=== PATIENT | female | born 1975 | race Caucasian/White ===

== ENCOUNTER 2020-11-16 10:55 | Emergency (ER) | payer OTHER, SELFPAY ==
--- NOTE | 2020-11-16 | ECG_ITS ---
Test Reason : CHEST PAIN Blood Pressure : / mmHG Vent. Rate : 069 BPM Atrial Rate : 069 BPM P-R Int : 150 ms QRS Dur : 084 ms QT Int : 434 ms P-R-T Axes : 023 010 027 degrees QTc Int : 465 ms Normal sinus rhythm Normal ECG When compared with ECG of 02-AUG-2018 16:29, No significant change was found Referred By: Jina Talamantes Electronically Signed By:JOY SHELBY MD
[2020-11-16 11:05] VITALS: BP 135/105; PULSE 78; RESP 16; TEMP 37.5; O2SAT 100; BMI 34.5
--- NOTE | 2020-11-16 11:53 | XR_ITS ---
EXAMINATION: CR CHEST CLINICAL INFORMATION: Chest pain. COMPARISON: Chest x-ray dated 03/11/2019 and older exams. TECHNIQUE: AP portable upright view of the chest was obtained. FINDINGS: EKG leads overlie the chest. The cardiomediastinal silhouette is within normal limits in size. Lungs bilaterally are symmetrically expanded and clear. No focal consolidation, effusion or pneumothorax is seen. Bony structures are unremarkable. XR/XR chest 1V IMPRESSION: Unremarkable examination.
[2020-11-16 12:00] VITALS: BP 139/88; PULSE 78; RESP 15; TEMP 37.4; O2SAT 98
--- NOTE | 2020-11-16 12:08 | ED.CHESTPAIN ---
HPI - Chest Pain General Chief Complaint: Chest Pain Stated Complaint: covid symptoms Time Seen by Provider: 11/16/20 11:53 History of Present Illness HPI narrative: Patient is a 45-year-old female presents today with having chest pain that is constant for the last 3 days. It is worse with lying down. Improved with sitting up. It is not associated with shortness of breath. There is some coughing some upper respiratory symptoms. No diaphoresis. Patient is from home. No history diabetes no history of hypertension no history of high cholesterol. Positive previous history of smoking patient claims she smoked for about 5 months. Never had a heart attack. Patient had a stress test done about 2 years ago was negative. The pain has not gotten any worse but is fairly constant. Patient decided to come to the emergency department for further evaluation. Patient had a hysterectomy is not . Denies any leg swelling no history of blood clots. Not on blood thinners. Related Data Allergies Allergy/AdvReac Type Severity Reaction Status Date / Time acetaminophen [Percocet] Allergy Unknown heart races Verified 05/03/20 00:00 oxycodone [OXYCODONE] AdvReac Unknown PALPITATION Unverified 08/09/20 14:48 S Review of Systems Review of Systems: Constitutional: No Weight loss, No Fever, No Chills, No Night Sweats, No Fatigue, No Malaise ENT/Mouth: No Hearing loss, No Ear Pain, No Nasal Congestion, No Sinus Pain, No Hoarseness, No sore throat, No Rhinorrhea, No Swallowing Difficulty Eyes: No Eye Pain, No Swelling, No Redness, No Foreign Body, No Discharge, No Vision Changes Cardiovascular: Positive Chest Pain, No SOB, No Dyspnea on Exertion, No Orthopnea, No Edema, No Palpitations Respiratory: No Cough, No Sputum, No Wheezing, No Smoke Exposure, No Dyspnea Gastrointestinal: No Nausea, No Vomiting, No Diarrhea, No Constipation, No abdominal Pain, No Hematochezia, No Melena Genitourinary: no irregular bleeding, No Dysuria, No Urinary Frequency, No Hematuria, No Urinary Incontinence, No Urgency, No Flank Pain, No Urinary Flow Changes, No Hesitancy Musculoskeletal: No joint pain, No Myalgias, No Joint Swelling Skin: No Skin Lesions, No rash Neuro: No Weakness, No Numbness, No Paresthesias, No Loss of Consciousness, No Dizziness, No Headache Psych: No Anxiety/Panic, No Depression, No SI/HI/AH/VH, No Social Issues, Heme/Lymph: No Bruising, No Bleeding,No Lymphadenopathy Endocrine: No Polyuria, No Polydipsia, No Temperature Intolerance [facility] Past Medical History Attestation statement: The following information was validated with the patient. Medical History Asthma Fibromyalgia Irritable bowel Pituitary tumor Pseudotumor Social History Social History Smoking Status: Never smoker Use of substances other than those prescribed or required for medical reasons: No Advance Directives: No Advance Directives Information Provided: Yes Physical Exam Vital Signs: Vital Signs: Last Vital Signs Temp 99.3 F 11/16/20 12:00 Pulse 78 11/16/20 12:00 Resp 15 11/16/20 12:00 BP 139/88 11/16/20 12:00 Pulse Ox 98 11/16/20 12:00 Body Mass Index 34.5 Appearance: Alert. Oriented X3. No acute distress. Eyes: Pupils equal, round and reactive to light. ENT: Pharynx normal. Neck: Normal inspection. Neck supple. No lymph nodes noted. No crepitus CVS: Normal heart rate and rhythm. Pulses normal. Normal S1 and S2 Respiratory: No respiratory distress. Breath sounds normal. No Wheezing. No rales Abdomen: Soft and nontender. No rigidity. No distention. good BS x4 Skin: Skin warm and dry. Normal skin color. Normal skin turgor. Extremities: No lower extremity edema. Neurovascular intact to all extremities. No Lacerations. No Rash Neuro: Oriented X 3. No motor deficit. No sensory deficit. Moving all extermities. No slurred speech MDM - Chest Pain MDM Narrative Medical decision making narrative: Chest pain atypical in nature. Will discharge patient home. Close follow-up on an outpatient basis. Patient has 1 set of cardiac enzyme was negative. Minimal risk factor. 45 years old. Heart score is less than 3. Will discharge patient. Chest pain has been constant for last 3 days. Close follow-up outpatient basis Lab Data Result diagrams: 11/16/20 12:12 11/16/20 12:12 Labs: Lab Results 11/16/20 11/16/2011/16/20 Range/Units 12:12 12:12 12:12 WBC 5.2 (4.8-10.8) X10*3/uL RBC 4.36 (4.20-5.50) X10*6/uL Hgb 13.0 (12.0-16.0) g/dl Hct 39.5 (37-47) % MCV 90.6 (80-98) fL MCH 29.8 (27.0-33.0) pg MCHC 32.9 (31.0-35.0) g/dl RDW 12.4 (11.0-16.0) % Plt Count 254 (160-400) X10*3/uL MPV 9.4 (9.4-12.3) fL Immature Gran % (Auto) 0.4 (0.0-0.4) % Neut % (Auto) 68.2 (45-73) % Lymph % (Auto) 25.4 (20-40) % Holmes % (Auto) 5.4 (2-11) % Eos % (Auto) 0.4 (0-4) % Baso % (Auto) 0.2 (0-2) % Lymph # (Auto) 1.3 (1.2-4.9) X10*3/uL Holmes # (Auto) 0.3 (0.1-1.2) X10*3/uL Eos # (Auto) 0.0 (0.0-0.4) X10*3/uL Baso # (Auto) 0.0 (0.0-0.2) X10*3/uL Abs Immat Gran (auto) 0.02 (0.00-0.03) X10*3/uL Absolute Neuts (auto) 3.5 (2.0-8.3) X10*3/uL Absolute Nucleated RBC 0.000 (0.0-0.012) X10*3/uL Nucleated RBC % (auto) 0.0 (0.0-0.2) /100WBC PT 12.2 (10.8-13.0) SEC INR 1.0 (0.9-1.1) Sodium 138 (135-145) mmol/L Potassium 3.8 (3.3-5.1) mmol/l Chloride 104 (96-108) mmol/L Carbon Dioxide 26 (22-29) mmol/L Anion Gap 12 (12-20) BUN 8 L (9-16) mg/dL Creatinine 0.66 (0.5-1.4) mg/dL Estim Creat Clear Calc 102.0 Estimated GFR > 60 Random Glucose 97 (60-115) mg/dL Calcium 8.3 L (8.4-10.2) mg/dL Troponin I High Sens (<3.5-17.0) ng/L Coronavirus (PCR) (Negative) Influenza Type A (PCR) (Negative) Influenza Type B (PCR) (Negative) RSV RNA Qual (PCR) (Negative) 11/16/20 11/16/20 Range/Units 12:12 12:12 WBC (4.8-10.8) X10*3/uL RBC (4.20-5.50) X10*6/uL Hgb (12.0-16.0) g/dl Hct (37-47) % MCV (80-98) fL MCH (27.0-33.0) pg MCHC (31.0-35.0) g/dl RDW (11.0-16.0) % Plt Count (160-400) X10*3/uL MPV (9.4-12.3) fL Immature Gran % (Auto) (0.0-0.4) % Neut % (Auto) (45-73) % Lymph % (Auto) (20-40) % Holmes % (Auto) (2-11) % Eos % (Auto) (0-4) % Baso % (Auto) (0-2) % Lymph # (Auto) (1.2-4.9) X10*3/uL Holmes # (Auto) (0.1-1.2) X10*3/uL Eos # (Auto) (0.0-0.4) X10*3/uL Baso # (Auto) (0.0-0.2) X10*3/uL Abs Immat Gran (auto) (0.00-0.03) X10*3/uL Absolute Neuts (auto) (2.0-8.3) X10*3/uL Absolute Nucleated RBC (0.0-0.012) X10*3/uL Nucleated RBC % (auto) (0.0-0.2) /100WBC PT (10.8-13.0) SEC INR (0.9-1.1) Sodium (135-145) mmol/L Potassium (3.3-5.1) mmol/l Chloride (96-108) mmol/L Carbon Dioxide (22-29) mmol/L Anion Gap (12-20) BUN (9-16) mg/dL Creatinine (0.5-1.4) mg/dL Estim Creat Clear Calc Estimated GFR Random Glucose (60-115) mg/dL Calcium (8.4-10.2) mg/dL Troponin I High Sens < 3.5 (<3.5-17.0) ng/L Coronavirus (PCR) POSITIVE A (Negative) Influenza Type A (PCR) NEGATIVE (Negative) Influenza Type B (PCR) NEGATIVE (Negative) RSV RNA Qual (PCR) NEGATIVE (Negative) ECG Data ECG #1: Interpretation: Sinus heart rate is 70 WA QRS QT within normal limits is no acute ST segment elevation noted Discharge Plan Discharge Clinical Impression: Chest pain Patient Disposition: Home, Self-Care Instructions: Chest Pain (ED) Referrals: Kenny Taylor PA-C [Primary Care Provider] - 2 days
[2020-11-16 12:18] LABS: Basophils Percent Auto 0.2 % (0-2); Eosinophils Percent Auto 0.4 % (0-4); Hematocrit 39.5 % (37-47); Imm Gran Abs Auto 0.02 X10*3/uL (0.00-0.03); Imm Gran Pct Auto 0.4 % (0.0-0.4); Lymphocytes Absolute Auto 1.3 X10*3/uL (1.2-4.9); Lymphocytes Percent Auto 25.4 % (20-40); MANUAL DIFF FLAG NO; Mean Corpuscular HGB Conc 32.9 g/dl (31.0-35.0); Mean Corpuscular Hemoglobin 29.8 pg (27.0-33.0); Mean Corpuscular Volume 90.6 fL (80-98); Mean Platelet Volume 9.4 fL (9.4-12.3); Monocytes Absolute Auto 0.3 X10*3/uL (0.1-1.2); Monocytes Percent Auto 5.4 % (2-11); Neutrophils Absolute Auto 3.5 X10*3/uL (2.0-8.3); Neutrophils Percent Auto 68.2 % (45-73); Platelet Count 254 X10*3/uL (160-400); Red Blood Count 4.36 X10*6/uL (4.20-5.50); Red Cell Distribution Width 12.4 % (11.0-16.0); White Blood Count 5.2 X10*3/uL (4.8-10.8)
[2020-11-16 12:28] LABS: Prothrombin Time 12.2 SEC (10.8-13.0)
[2020-11-16 12:46] LABS: Anion Gap 12 (12-20); Blood Urea Nitrogen 8 mg/dL (9-16); Calcium 8.3 mg/dL (8.4-10.2); Carbon Dioxide 26 mmol/L (22-29); Chloride 104 mmol/L (96-108); Estimated Glomerular Filt Rate > 60; Glucose Random 97 mg/dL (60-115); Potassium 3.8 mmol/l (3.3-5.1); Sodium 138 mmol/L (135-145)
[2020-11-16 12:51] LABS: Troponin-I High Sensitivity < 3.5 ng/L (<3.5-17.0)
[2020-11-16 13:11] LABS: Influenza A PCR NEGATIVE (Negative); Influenza B PCR NEGATIVE (Negative); Resp Syncy Virus RNA Qual PCR NEGATIVE (Negative); SARS COV2 PCR INHOUSE POSITIVE (Negative)
== END 2020-11-16 14:30 | disposition home or self-care (01) ==
PROVIDERS: Emergency Provider Emergency Medicine Emergency Medical Services; PCP Physician Assistant
DX: R07.9 Chest pain, unspecified (principal); R06.02 Shortness of breath; Z87.891 Personal history of nicotine dependence; Z20.828 Contact with and (suspected) exposure to other viral communicable diseases
CPT/HCPCS: 0241U; 36415; 71045; 80048; 84484; 85025; 85610; 93005; 99283; 99284

== ENCOUNTER 2021-03-26 18:33 | Emergency (ER) | payer OTHER, SELFPAY ==
--- NOTE | 2021-03-26 | ECG_ITS ---
Test Reason : CHEST PAIN Blood Pressure : / mmHG Vent. Rate : 074 BPM Atrial Rate : 074 BPM P-R Int : 146 ms QRS Dur : 084 ms QT Int : 400 ms P-R-T Axes : 017 006 037 degrees QTc Int : 444 ms Normal sinus rhythm Minimal voltage criteria for LVH, may be normal variant Borderline ECG When compared with ECG of 16-NOV-2020 11:02, No significant change was found Referred By: Generic ED Physician Electronically Signed By:IMELDA LEARY
--- NOTE | ~2021-03-26 | XR_ITS ---
EXAMINATION: XR CHEST CLINICAL INFORMATION: Chest pain COMPARISON: 11/16/2020 TECHNIQUE: Frontal view of the chest was obtained. FINDINGS: No significant abnormality is noted involving the heart, lungs, mediastinum, bony thorax or soft tissues. XR/XR chest 1V IMPRESSION: Unremarkable examination.
[2021-03-26 18:39] VITALS: BP 170/96; PULSE 87; RESP 20; TEMP 36.5; O2SAT 100; BMI 35.2
[2021-03-26 20:57] LABS: MANUAL DIFF FLAG NO
[2021-03-26 21:00] LABS: Basophils Percent Auto 0.2 % (0-2); Eosinophils Absolute Auto 0.1 X10*3/uL (0.0-0.4); Eosinophils Percent Auto 0.5 % (0-4); Hemoglobin 13.6 g/dl (12.0-16.0); Imm Gran Abs Auto 0.03 X10*3/uL (0.00-0.03); Imm Gran Pct Auto 0.3 % (0.0-0.4); Lymphocytes Absolute Auto 1.7 X10*3/uL (1.2-4.9); Mean Corpuscular HGB Conc 33.2 g/dl (31.0-35.0); Mean Corpuscular Hemoglobin 30.1 pg (27.0-33.0); Mean Corpuscular Volume 90.7 fL (80-98); Mean Platelet Volume 9.4 fL (9.4-12.3); Monocytes Absolute Auto 0.4 X10*3/uL (0.1-1.2); Monocytes Percent Auto 3.4 % (2-11); Neutrophils Absolute Auto 8.6 X10*3/uL (2.0-8.3); Neutrophils Percent Auto 79.6 % (45-73); Platelet Count 326 X10*3/uL (160-400); Red Blood Count 4.52 X10*6/uL (4.20-5.50); Red Cell Distribution Width 12.8 % (11.0-16.0); White Blood Count 10.8 X10*3/uL (4.8-10.8)
[2021-03-26 21:28] LABS: Anion Gap 14 (12-20); Blood Urea Nitrogen 12 mg/dL (9-16); Calcium 9.8 mg/dL (8.4-10.2); Carbon Dioxide 25 mmol/L (22-29); Chloride 106 mmol/L (96-108); Creatinine Clr Calc Pharmacy 88.2; Estimated Glomerular Filt Rate > 60; Glucose Random 98 mg/dL (60-115); Potassium 4.3 mmol/L (3.3-5.1); Sodium 141 mmol/L (135-145)
[2021-03-26 21:34] LABS: B Type Natriuretic Peptide 10 pg/mL (<100); Troponin-I High Sensitivity < 3.5 ng/L (<3.5-17.0)
== END 2021-03-26 21:54 | disposition left against medical advice (07) ==
LOC: HO.ED 21:53
PROVIDERS: Emergency Provider Emergency Medicine; PCP Physician Assistant
DX: R07.9 Chest pain, unspecified (principal); Z86.16 Personal history of COVID-19
CPT/HCPCS: 36415; 71045; 80048; 83880; 84484; 85025; 93005; 99283

== ENCOUNTER 2021-06-06 21:10 | Emergency (ER) | payer OTHER, SELFPAY ==
[2021-06-06 21:36] VITALS: BP 130/72; PULSE 77; RESP 18; TEMP 36.6; O2SAT 98; BMI 35.2
[2021-06-06] MEDS: clonazePAM 1 MG TABLET PO (22:05)
--- NOTE | 2021-06-06 22:51 | ED_ITS ---
HPI - Anxiety General Chief Complaint: Anxiety Stated Complaint: panic attak Time Seen by Provider: 06/06/21 21:43 Source: patient Mode of arrival: ambulatory Limitations: no limitations History of Present Illness HPI narrative: Patient with extensive conflict with neighbors Jayna keep jossy Mcpherson her just prior to arrival patient had a increased anxiety with panic attack tearful denies any suicidal feeling or depression Related Data Previous Rx's Medication Instructions Recorded albuterol sulfate 90 mcg/actuation 1 inh INHALATION QID 30 Days #8.5 g 04/25/21 aerosol inhaler buspirone 10 mg tablet 10 mg PO BID 30 Days #60 tab 04/25/21 ibuprofen 800 mg tablet 800 mg PO Q12H #60 tab 04/25/21 clonazepam [Klonopin] 1 mg PO BEDTIME PRN #10 tab 06/06/21 Allergies Allergy/AdvReac Type Severity Reaction Status Date / Time acetaminophen [Percocet] Allergy Unknown heart races Verified 06/06/21 21:41 oxycodone [OXYCODONE] AdvReac Unknown PALPITATION Verified 06/06/21 21:41 S Review of Systems Review of Systems: Yes all other systems are reviewed and are negative [facility] Past Medical History Medical History Asthma Fibromyalgia Irritable bowel Pituitary tumor Pseudotumor Surgical History History of biopsy History of delivery History of cholecystectomy History of hysterectomy Family History Family History Mother Diabetes Heart defect Thyroid disease Heart attack, Onset Age: 29 Father Diabetes Hypertension Social History Social History Alcohol intake: current Alcohol intake frequency: holidays/special occasions only Patient Tobacco Use Status: Former Tobacco user Advance Directives: No Advance Directives Information Provided: Yes Patient : No Physical Exam Vital Signs: Vital Signs: Last Vital Signs Temp 98 F 06/06/21 21:36 Pulse 77 06/06/21 21:36 Resp 18 06/06/21 21:36 BP 130/72 06/06/21 21:36 Pulse Ox 98 06/06/21 21:36 Body Mass Index 35.2 Appearance: Alert. Oriented X3. No acute distress. Anxious tearful Eyes: PERRLA, ENT: Pharynx normal. Oral Mucosa moist Neck: Normal inspection. Neck supple. CVS: Normal heart rate and rhythm. Pulses normal. Respiratory: No respiratory distress. Abdomen: Soft and nontender. Skin: Skin warm and dry. Normal skin color. Normal skin turgor. Extremities: No lower extremity edema. Neuro: Oriented X 3. MDM - Anxiety MDM Narrative Medical decision making narrative: Patient feeling much better after Klonopin feels relax will discharge patient home Discharge Plan Discharge Clinical Impression: Panic attack Patient Disposition: Home, Self-Care Instructions: Panic Attack (ED) Additional Instructions: Continue to take your medication as prescribed, Klonopin for severe attack and follow up with your therapist/PCP Prescriptions: New clonazepam [Klonopin] 1 mg tablet 1 mg PO BEDTIME PRN (Reason: anxiety) Qty: 10 RF: 0 No Action buspirone 10 mg tablet 10 mg PO BID 30 Days Qty: 60 RF: 2 ibuprofen 800 mg tablet 800 mg PO Q12H Qty: 60 RF: 2 albuterol sulfate 90 mcg/actuation HFA aerosol inhaler 1 inh inhalation QID 30 Days Qty: 8.5 RF: 3
[2021-06-06 22:58] VITALS: BP 118/84; PULSE 103; RESP 24; TEMP 37.4; O2SAT 95
== END 2021-06-06 23:03 | disposition home or self-care (01) ==
PROVIDERS: Emergency Provider Internal Medicine; PCP Physician Assistant
DX: F41.0 Panic disorder [episodic paroxysmal anxiety] (principal); J45.909 Unspecified asthma, uncomplicated; Z79.899 Other long term (current) drug therapy
CPT/HCPCS: 99283; 99284

== ENCOUNTER 2022-02-13 08:41 | Emergency (ER) | payer OTHER, SELFPAY ==
--- NOTE | ~2022-02-13 | XR_ITS ---
EXAMINATION: XR CHEST CLINICAL INFORMATION: Chest tightness COMPARISON: None TECHNIQUE: Frontal view of the chest was obtained. FINDINGS: No significant abnormality is noted involving the heart, lungs, mediastinum, bony thorax or soft tissues. XR/XR chest 1V IMPRESSION: Unremarkable chest examination.
--- NOTE | ~2022-02-13 | CT_ITS ---
EXAMINATION: CT HEAD WITHOUT CONTRAST CLINICAL INFORMATION: Dizziness. COMPARISON: None TECHNIQUE: Contiguous axial imaging was performed from the skull base to vertex without intravenous administration of contrast. This CT examination was performed using dose optimization techniques as appropriate, variously including the following: *Automated exposure control *Adjustment of mA and/or kV according to patient size (this includes techniques or standardized protocols for targeted exams where dose is matched to indication/reason for exam; i.e. extremities or head) *Use of iterative reconstruction technique DLP: 631 mGy-cm FINDINGS: There is no evidence of acute intracranial hemorrhage or territorial infarction. No abnormal mass effect or midline shift is seen. Buchanan to white matter differentiation is well preserved. No extra-axial fluid collections are identified. The ventricles are normal in size. There is no abnormal attenuation within the brain parenchyma. The osseous structures and soft tissues are normal. The mastoid air cells and visualized portions of the paranasal sinuses are well aerated. CT/CT head/brain wo con IMPRESSION: No acute intracranial process seen.
--- NOTE | 2022-02-13 08:42 | ECG_ITS ---
Test Reason : chest pain Blood Pressure : / mmHG Vent. Rate : 093 BPM Atrial Rate : 093 BPM P-R Int : 146 ms QRS Dur : 078 ms QT Int : 386 ms P-R-T Axes : 028 006 044 degrees QTc Int : 479 ms Normal sinus rhythm Normal ECG When compared with ECG of 26-MAR-2021 18:53, No significant change was found Referred By: Generic ED Physician Electronically Signed By:JOY SHELBY MD
[2022-02-13 08:43] VITALS: BP 185/90; PULSE 83; RESP 18; TEMP 36.8; O2SAT 98; BMI 33.2
--- NOTE | 2022-02-13 09:24 | ED.CHESTPAIN ---
HPI - Chest Pain General Chief Complaint: Chest Pain Stated Complaint: chest pain Time Seen by Provider: 02/13/22 09:22 Source: patient Mode of arrival: ambulatory Limitations: no limitations History of Present Illness HPI narrative: palpitations for the last month undergoing heart monitor testing for 3 days does not have the results, waking up anxious and feeling like she can't breathe at night - planned for sleep study was driving at 8am this morning felt dizzy, both of her hands went numb and the lower half of her body, she then felt dizzy and was incontinent of urine she felt her heart racing - this lasted 5 minutes and she was able to continue driving. She was on 20mg sertraline for 2 weeks but took herself off due to vomiting MD complaint: chest pain Onset (ago): hour(s) (8am today but has had palpitations for a month) Timing of current episode: episodic Prior episodes: Yes Onset: during rest Pain location: substernal Pain radiation: none Severity: moderate Quality: tightness Relieving factors: nothing Exacerbating factors: nothing Associated symptoms: dyspnea Treatment prior to arrival: none Related Data Previous Rx's Medication Instructions Recorded ibuprofen 800 mg tablet 800 mg PO Q12H #60 tab 07/20/21 albuterol sulfate 90 mcg/actuation 1 inh INHALATION QID 30 Days #8.5 g 11/17/21 aerosol inhaler blood pressure test kit-large #1 ea 01/13/22 citalopram 20 mg tablet (Celexa) 20 mg PO DAILY 30 Days #30 tab 01/13/22 melatonin 10 mg capsule 10 mg PO BEDTIME PRN 60 Days #60 01/13/22 cap lorazepam 0.5 mg tablet (Ativan) 0.5 mg PO DAILY PRN #7 tab 02/13/22 Allergies Allergy/AdvReac Type Severity Reaction Status Date / Time acetaminophen [Percocet] Allergy Unknown heart races Verified 01/13/22 13:20 oxycodone [OXYCODONE] AdvReac Unknown PALPITATION Verified 01/13/22 13:20 S Review of Systems Review of Systems: Constitutional : No Weight loss, No Fever, No Chills, No Fatigue, No Malaise ENT/Mouth : No sore throat, No Rhinorrhea Eyes: No Eye Pain, No Swelling, No Redness Cardiovascular : pos Chest Pain, pos SOB, No Dyspnea on Exertion, No Orthopnea, No Edema, pos Palpitations Respiratory : No Cough, No Sputum, No Wheezing Gastrointestinal : No Nausea, No Vomiting, No Diarrhea, No Constipation, No abdominal Pain, No Hematochezia, No Melena Genitourinary : No Dysuria, No Urinary Frequency, No Hematuria, pos urinary incontinence Musculoskeletal : No joint pain, No Myalgias, No Joint Swelling Skin : No Skin Lesions, No rash Neuro : No Weakness, pos Numbness, pos Dizziness, No Headache Psych : pos Anxiety/Panic, No Depression Heme/Lymph: No Bruising, No Bleeding,No Lymphadenopathy Endocrine : No Polyuria, No Polydipsia All other systems reviewed and are negative PMFSH Past Medical History Attestation statement: The following information was validated with the patient. Medical History Anxiety Asthma Fibromyalgia Heart palpitations HTN (hypertension) Irritable bowel Pituitary tumor Pseudotumor Surgical History History of biopsy History of delivery History of cholecystectomy History of hysterectomy Family History Family History Mother Diabetes Heart defect Thyroid disease Heart attack, Onset Age: 29 Father Diabetes Hypertension Social History Social History Housing: Apartment Alcohol intake: never Patient Tobacco Use Status: Former Tobacco user Tobacco use type: Cigarette e-Cigarette/Vaping Use: Never Used Use of substances other than those prescribed or required for medical reasons: No Advance Directives: No Advance Directives Information Provided: No service: No Current occupational status: disabled Physical Exam Vital Signs: Vital Signs: Last Vital Signs Temp 99.3 F 02/13/22 12:04 Pulse 62 02/13/22 12:04 Resp 15 02/13/22 12:04 BP 118/73 02/13/22 12:04 Pulse Ox 98 02/13/22 12:04 BMI result Body Mass Index 33.2 Appearance: Alert. Oriented X3. No acute distress. Anxious Eyes: Pupils equal, round and reactive to light. ENT: Pharynx normal. Neck: Normal inspection. Neck supple. CVS: Normal heart rate and rhythm. Pulses normal. Respiratory: No respiratory distress. Breath sounds normal. Abdomen: Soft and nontender. Skin: Skin warm and dry. Normal skin color. Normal skin turgor. Extremities: No lower extremity edema. No calf ttp Neuro: Oriented X 3. No motor deficit. No sensory deficit. Course Course Course Narrative: EKG, troponin x 2 negative, CT head normal, UA negative, lytes normal no events on tele here x 5 hours at this time can be DC home wtih PCP follow up unsure if this was a near syncopal event MDM - Chest Pain MDM Narrative Medical decision making narrative: 46 yo female with hx of heart palpitations, anxiety, HTN, not on any medications comes in with c/o having increased palpitations (completing workup now) today had episode of dizziness, her body went number on lower half, lost control of urine, this lasted 5 minutes she is neurologically intact. She did not have LOC and describes it as her whole body so it does not seem like it would be a partial seizure or generalized seizure. She is very anxious. Will obtain troponin x 2, CT scan of head, EKG, IV ativan for anxiety, no hypoxia/signs of DVT HR in 70s no OCPs doubt PE. Lab Data Result diagrams: 02/13/22 10:14 02/13/22 10:14 Labs: Lab Results 02/13/22 02/13/22 02/13/22 Range/Units 10:14 10:14 10:14 WBC 7.0 (4.8-10.8) X10*3/uL RBC 4.39 (4.20-5.50) X10*6/uL Hgb 13.2 (12.0-16.0) g/dl Hct 40.8 (37.0-47.0) % MCV 92.9 (80.0-98.0) fL MCH 30.1 (27.0-33.0) pg MCHC 32.4 (31.0-35.0) g/dl RDW 13.1 (11.0-16.0) % Plt Count 306 (160-400) X10*3/uL MPV 9.5 (9.4-12.3) fL Immature Gran % (Auto) 0.3 (0.0-0.4) % Neut % (Auto) 73.6 H (45-73) % Lymph % (Auto) 21.0 (20-40) % [place] % (Auto) 4.4 (2-11) % Eos % (Auto) 0.6 (0-4) % Baso % (Auto) 0.1 (0-2) % Lymph # (Auto) 1.5 (1.2-4.9) X10*3/uL [place] # (Auto) 0.3 (0.1-1.2) X10*3/uL Eos # (Auto) 0.0 (0.0-0.4) X10*3/uL Baso # (Auto) 0.0 (0.0-0.2) X10*3/uL Abs Immat Gran (auto) 0.02 (0.00-0.03) X10*3/uL Absolute Neuts (auto) 5.2 (2.0-8.3) x10*3/uL Absolute Nucleated RBC 0.000 (0.0-0.012) X10*3/uL Nucleated RBC % (auto) 0.0 (0.0-0.2) /100WBC Sodium 141 (135-145) mmol/L Potassium 4.4 (3.3-5.1) mmol/L Chloride 106 (96-108) mmol/L Carbon Dioxide 25 (22-29) mmol/L Anion Gap 14 (12-20) BUN 10 (9-16) mg/dL Creatinine 0.73 (0.5-1.4) mg/dL Estim Creat Clear Calc 89.3 Estimated GFR > 60 Random Glucose 96 (60-115) mg/dL Calcium 8.9 D (8.4-10.2) mg/dL Magnesium 2.1 (1.6-2.6) mg/dL Total Bilirubin 0.7 (0.0-1.0) mg/dL Direct Bilirubin 0.2 (0.0-0.5) mg/dL AST 16 (5-31) U/L ALT 21 (0-31) U/L Alkaline Phosphatase 60 (39-117) U/L Troponin I High Sens < 3.5 (<3.5-17.0) ng/L Total Protein 7.0 (6.5-8.0) g/dL Albumin 3.9 (3.5-5.0) g/dL Lipase 23 (8-78) U/L Urine Color Urine Appearance Urine pH (5.0-8.0) Ur Specific [place] (1.005-1.025) Urine Protein (NEG-TRACE) MG/DL Urine Glucose (UA) (NEG) MG/DL Urine Ketones (NEG) MG/DL Urine Blood (NEG) Urine Nitrite (NEG) Ur Leukocyte Esterase (NEG) Urine RBC (0) /HPF Urine WBC (0-4) /HPF Ur Squamous Epith Cells /LPF Amorphous Sediment /LPF Urine Bacteria /LPF Urine Mucus /LPF COVID-19 ([facility]) (Negative) COVID-19 Clin Com 02/13/22 02/13/22 02/13/22 Range/Units 10:14 10:30 13:22 WBC (4.8-10.8) X10*3/uL RBC (4.20-5.50) X10*6/uL Hgb (12.0-16.0) g/dl Hct (37.0-47.0) % MCV (80.0-98.0) fL MCH (27.0-33.0) pg MCHC (31.0-35.0) g/dl RDW (11.0-16.0) % Plt Count (160-400) X10*3/uL MPV (9.4-12.3) fL Immature Gran % (Auto) (0.0-0.4) % Neut % (Auto) (45-73) % Lymph % (Auto) (20-40) % [place] % (Auto) (2-11) % Eos % (Auto) (0-4) % Baso % (Auto) (0-2) % Lymph # (Auto) (1.2-4.9) X10*3/uL [place] # (Auto) (0.1-1.2) X10*3/uL Eos # (Auto) (0.0-0.4) X10*3/uL Baso # (Auto) (0.0-0.2) X10*3/uL Abs Immat Gran (auto) (0.00-0.03) X10*3/uL Absolute Neuts (auto) (2.0-8.3) x10*3/uL Absolute Nucleated RBC (0.0-0.012) X10*3/uL Nucleated RBC % (auto) (0.0-0.2) /100WBC Sodium (135-145) mmol/L Potassium (3.3-5.1) mmol/L Chloride (96-108) mmol/L Carbon Dioxide (22-29) mmol/L Anion Gap (12-20) BUN (9-16) mg/dL Creatinine (0.5-1.4) mg/dL Estim Creat Clear Calc Estimated GFR Random Glucose (60-115) mg/dL Calcium (8.4-10.2) mg/dL Magnesium (1.6-2.6) mg/dL Total Bilirubin (0.0-1.0) mg/dL Direct Bilirubin (0.0-0.5) mg/dL AST (5-31) U/L ALT (0-31) U/L Alkaline Phosphatase (39-117) U/L Troponin I High Sens < 3.5 (<3.5-17.0) ng/L Total Protein (6.5-8.0) g/dL Albumin (3.5-5.0) g/dL Lipase (8-78) U/L Urine Color YELLOW Urine Appearance HAZY Urine pH 5.5 (5.0-8.0) Ur Specific [place] >= 1.030 H (1.005-1.025) Urine Protein NEG (NEG-TRACE) MG/DL Urine Glucose (UA) NEG (NEG) MG/DL Urine Ketones NEG (NEG) MG/DL Urine Blood 1+ H (NEG) Urine Nitrite NEG (NEG) Ur Leukocyte Esterase NEG (NEG) Urine RBC 0-2 (0) /HPF Urine WBC 0-2 (0-4) /HPF Ur Squamous Epith Cells 1+ /LPF Amorphous Sediment 1+ /LPF Urine Bacteria NONE /LPF Urine Mucus 2+ /LPF COVID-19 ([facility]) Negative (Negative) COVID-19 Clin Com See Note ECG Data ECG #1: Attestation: I personally reviewed and interpreted this ECG as follows: ECG interpretation date: 02/13/22 ECG interpretation time: 09:25 Interpretation: Rate: 93 Rhythm: NSr [place]: left Normal P waves. Normal OMARI. Normal QRS complex. ST T wave : normal no MAMI qTC: normal prior studies: no acute ischemia The study has been interpreted contemporaneously by me. Discharge Plan Discharge Clinical Impression: Heart palpitations, Near syncope Patient Disposition: Home, Self-Care Instructions: Heart Palpitations (ED), Near Syncope (ED) Additional Instructions: return to ED for any worsening symptoms or concerns blood work including heart markers are normal, Chest xray, head CT all normal, telemetry in ED was normal. given the event today I would not drive your car until seen by your primary care doctor. This seems unusual for a partial seizure. Could have been a near syncopal (passing out) episode Prescriptions: New lorazepam [Ativan] 0.5 mg tablet 0.5 mg PO DAILY PRN (Reason: anxiety) Qty: 7 0RF No Action ibuprofen 800 mg tablet 800 mg PO Q12H Qty: 60 2RF albuterol sulfate 90 mcg/actuation HFA aerosol inhaler 1 inh inhalation QID 30 Days Qty: 8.5 3RF citalopram [Celexa] 20 mg tablet 20 mg PO DAILY 30 Days Qty: 30 3RF (DME) blood pressure test kit-large Kit See Rx Instructions .Route Qty: 1 0RF Rx Instructions: As directed melatonin 10 mg capsule 10 mg PO BEDTIME PRN (Reason: sleep) 60 Days Qty: 60 1RF Referrals: Kenny Taylor PA-C [Primary Care Provider] - 2 days Stand Alone Forms: Work/School Release
[2022-02-13 09:58] VITALS: BP 121/81; PULSE 70; RESP 18; O2SAT 95
[2022-02-13 10:23] LABS: MANUAL DIFF FLAG NO
[2022-02-13 10:26] LABS: Basophils Percent Auto 0.1 % (0-2); Eosinophils Percent Auto 0.6 % (0-4); Hematocrit 40.8 % (37.0-47.0); Hemoglobin 13.2 g/dl (12.0-16.0); Imm Gran Abs Auto 0.02 X10*3/uL (0.00-0.03); Imm Gran Pct Auto 0.3 % (0.0-0.4); Lymphocytes Absolute Auto 1.5 X10*3/uL (1.2-4.9); Mean Corpuscular HGB Conc 32.4 g/dl (31.0-35.0); Mean Corpuscular Hemoglobin 30.1 pg (27.0-33.0); Mean Corpuscular Volume 92.9 fL (80.0-98.0); Mean Platelet Volume 9.5 fL (9.4-12.3); Monocytes Absolute Auto 0.3 X10*3/uL (0.1-1.2); Monocytes Percent Auto 4.4 % (2-11); Neutrophils Absolute Auto 5.2 x10*3/uL (2.0-8.3); Neutrophils Percent Auto 73.6 % (45-73); Platelet Count 306 X10*3/uL (160-400); Red Blood Count 4.39 X10*6/uL (4.20-5.50); Red Cell Distribution Width 13.1 % (11.0-16.0)
[2022-02-13 10:52] LABS: Alanine Aminotransferase 21 U/L (0-31); Albumin Level 3.9 g/dL (3.5-5.0); Alkaline Phosphatase 60 U/L (39-117); Anion Gap 14 (12-20); Aspartate Amino Transferase 16 U/L (5-31); Bilirubin Direct 0.2 mg/dL (0.0-0.5); Bilirubin Total 0.7 mg/dL (0.0-1.0); Blood Urea Nitrogen 10 mg/dL (9-16); Calcium 8.9 mg/dL (8.4-10.2); Carbon Dioxide 25 mmol/L (22-29); Chloride 106 mmol/L (96-108); Creatinine Clr Calc Pharmacy 89.3; Estimated Glomerular Filt Rate > 60; Glucose Random 96 mg/dL (60-115); Lipase 23 U/L (8-78); Magnesium 2.1 mg/dL (1.6-2.6); Potassium 4.4 mmol/L (3.3-5.1); Sodium 141 mmol/L (135-145)
[2022-02-13 10:54] LABS: Troponin-I High Sensitivity < 3.5 ng/L (<3.5-17.0)
[2022-02-13 10:57] LABS: Appearance Urine HAZY; Color Urine YELLOW; Glucose Urine UA NEG (NEG); Leukocyte Esterase Urine NEG (NEG); Nitrite Urine NEG (NEG); PH 5.5 (5.0-8.0); Specific Gravity - Urine >= 1.030 (1.005-1.025); UACC Culture Trigger NO; Urine Blood 1+ (NEG); Urine Ketones NEG (NEG); Urine Protein NEG (NEG-TRACE)
[2022-02-13 10:58] LABS: COVID-19 Test Negative (Negative); IDNOW Serial# 55D5AD1C
[2022-02-13 11:34] LABS: Amorphous Sediment Urine 1+ /LPF; Mucus Urine 2+ /LPF; RBC Urine 0-2 /HPF (0); Squamous Epithelial Cell Urine 1+ /LPF; WBC Urine 0-2 /HPF (0-4)
[2022-02-13 11:37] VITALS: BP 118/70; PULSE 65; RESP 18; O2SAT 96
[2022-02-13] MEDS: 0.9 % Sodium Chloride 500 ML IV (11:37)
--- NOTE | 2022-02-13 11:38 | PC.NURSE ---
pt describes a year of waking with SOB. has cardio care including holter monitor. skin p[wd. nsr on monitor. describes carple pedal spasms and panick attack in car this am. sx are resolving w/o interventions.
[2022-02-13 12:04] VITALS: BP 118/73; PULSE 62; RESP 15; TEMP 37.4; O2SAT 98
--- NOTE | 2022-02-13 12:18 | PC.NURSE ---
mild plus 1 pitting edema to ankle only bilaterally
[2022-02-13 13:48] LABS: Troponin-I High Sensitivity < 3.5 ng/L (<3.5-17.0)
--- NOTE | 2022-02-13 13:51 | PC.NURSE ---
reports feeling better.
== END 2022-02-13 14:46 | disposition home or self-care (01) ==
PROVIDERS: Emergency Provider Emergency Medicine; PCP Physician Assistant
DX: R00.2 Palpitations (principal); R55 Syncope and collapse; Z20.822 Contact with and (suspected) exposure to COVID-19; I10 Essential (primary) hypertension; F41.9 Anxiety disorder, unspecified; Z87.891 Personal history of nicotine dependence
CPT/HCPCS: 36415; 70450; 71045; 80048; 80076; 81001; 81003; 83690; 83735; 84484; 85025; 87635; 93005; 96361; 96374; 99284

== ENCOUNTER 2022-12-08 10:34 | Outpatient (REF) | payer OTHER, SELFPAY ==
[2022-12-08 10:59] LABS: Hematocrit 43.1 % (37.0-47.0); Mean Corpuscular HGB Conc 32.5 g/dl (31.0-35.0); Mean Corpuscular Hemoglobin 29.5 pg (27.0-33.0); Mean Corpuscular Volume 90.7 fL (80.0-98.0); Mean Platelet Volume 9.3 fL (9.4-12.3); Platelet Count 357 X10*3/uL (160-400); Red Blood Count 4.75 X10*6/uL (4.20-5.50); Red Cell Distribution Width 12.7 % (11.0-16.0); White Blood Count 7.4 X10*3/uL (4.8-10.8)
[2022-12-08 11:42] LABS: Erythrocyte Sedimentation Rate 17 MM/HR (0-20)
[2022-12-08 11:46] LABS: B Type Natriuretic Peptide 42 pg/mL (<100)
[2022-12-08 11:47] LABS: Alanine Aminotransferase 13 U/L (0-31); Albumin Level 4.1 g/dL (3.5-5.0); Alkaline Phosphatase 63 U/L (39-117); Anion Gap 9 (12-20); Aspartate Amino Transferase 13 U/L (5-31); Bilirubin Total 0.3 mg/dL (0.0-1.0); Blood Urea Nitrogen 12 mg/dL (9-16); C Reactive Protein 0.59 mg/dL (< or = 0.50); Calcium 9.1 mg/dL (8.4-10.2); Carbon Dioxide 26 mmol/L (22-29); Chloride 108 mmol/L (96-108); Estimated Glomerular Filt Rate > 60; Glucose Random 97 mg/dL (60-115); Potassium 4.4 mmol/L (3.3-5.1); Rheumatoid Factor < 13.0 IU/mL (<15.0); Sodium 139 mmol/L (135-145); Total Protein 7.2 g/dL (6.5-8.0)
[2022-12-09 15:24] LABS: Anti Nuclear Antibody Screen NEGATIVE (NEGATIVE)
== END 2022-12-08 10:35 | disposition home or self-care (01) ==
LOC: HO.LAB 10:34
PROVIDERS: PCP Physician Assistant; Visit Provider Nurse Practitioner Family
DX: Z13.1 Encounter for screening for diabetes mellitus (principal); Z13.0 Encounter for screening for diseases of the blood and blood-forming organs and certain disorders involving the immune mechanism; M25.50 Pain in unspecified joint; R60.9 Edema, unspecified
CPT/HCPCS: 36415; 80053; 83880; 85027; 85652; 86038; 86039; 86140; 86431

== ENCOUNTER 2023-02-03 12:57 | Emergency (ER) | payer OTHER, SELFPAY ==
--- NOTE | ~2023-02-03 | XR_ITS ---
EXAMINATION: XR CHEST CLINICAL INFORMATION: Chest pain COMPARISON: 02/13/2022 TECHNIQUE: 2 views of the chest were obtained. FINDINGS: The lungs are well expanded. There is no focal consolidation, edema, or effusion. No pneumothorax. The cardiomediastinal silhouette is within normal limits. No acute osseous abnormality. XR/XR chest 2V IMPRESSION: Clear lungs.
[2023-02-03 13:00] VITALS: BP 159/93; PULSE 113; RESP 20; TEMP 36.6; O2SAT 97; BMI 34.2
--- NOTE | 2023-02-03 13:03 | ECG_ITS ---
Test Reason : CHEST PAIN Blood Pressure : / mmHG Vent. Rate : 107 BPM Atrial Rate : 107 BPM P-R Int : 150 ms QRS Dur : 082 ms QT Int : 340 ms P-R-T Axes : 022 -09 028 degrees QTc Int : 453 ms Sinus tachycardia Possible Left atrial enlargement Minimal voltage criteria for LVH, may be normal variant ( R in aVL ) Borderline ECG When compared with ECG of 13-FEB-2022 08:41, No significant change was found Referred By: Generic ED Physician Electronically Signed By:Artemio Darling
[2023-02-03 13:18] LABS: MANUAL DIFF FLAG NO
[2023-02-03 13:20] LABS: Basophils Percent Auto 0.2 % (0-2); Eosinophils Percent Auto 0.4 % (0-4); Hematocrit 41.1 % (37.0-47.0); Hemoglobin 13.5 g/dl (12.0-16.0); Imm Gran Abs Auto 0.03 X10*3/uL (0.00-0.03); Imm Gran Pct Auto 0.3 % (0.0-0.4); Lymphocytes Absolute Auto 1.5 X10*3/uL (1.2-4.9); Lymphocytes Percent Auto 16.3 % (20-40); Mean Corpuscular HGB Conc 32.8 g/dl (31.0-35.0); Mean Corpuscular Hemoglobin 29.7 pg (27.0-33.0); Mean Corpuscular Volume 90.5 fL (80.0-98.0); Mean Platelet Volume 9.3 fL (9.4-12.3); Monocytes Absolute Auto 0.3 X10*3/uL (0.1-1.2); Monocytes Percent Auto 3.6 % (2-11); Neutrophils Absolute Auto 7.2 x10*3/uL (2.0-8.3); Neutrophils Percent Auto 79.2 % (45-73); Platelet Count 349 X10*3/uL (160-400); Red Blood Count 4.54 X10*6/uL (4.20-5.50); Red Cell Distribution Width 13.1 % (11.0-16.0); White Blood Count 9.1 X10*3/uL (4.8-10.8)
[2023-02-03 13:38] LABS: Alanine Aminotransferase 18 U/L (0-31); Albumin Level 4.2 g/dL (3.5-5.0); Alkaline Phosphatase 70 U/L (39-117); Anion Gap 14 (12-20); Aspartate Amino Transferase 18 U/L (5-31); Bilirubin Total 0.7 mg/dL (0.0-1.0); Blood Urea Nitrogen 12 mg/dL (9-16); Calcium 8.6 mg/dL (8.4-10.2); Carbon Dioxide 22 mmol/L (22-29); Chloride 109 mmol/L (96-108); Creatinine Clr Calc Pharmacy 87.3; Estimated Glomerular Filt Rate > 60; Glucose Random 108 mg/dL (60-115); Potassium 3.9 mmol/L (3.3-5.1); Sodium 141 mmol/L (135-145); Total Protein 7.3 g/dL (6.5-8.0)
[2023-02-03 13:45] LABS: Troponin-I High Sensitivity < 3.5 ng/L (<3.5-17.0)
== END 2023-02-03 22:53 | disposition left against medical advice (07) ==
PROVIDERS: Emergency Provider Emergency Medicine
DX: R07.9 Chest pain, unspecified (principal)
CPT/HCPCS: 36415; 71046; 80053; 84484; 85025; 93005; 99281; 99283

== ENCOUNTER 2024-02-12 14:52 | Outpatient (REF) | payer OTHER, SELFPAY ==
--- NOTE | ~2024-02-12 | MR_ITS ---
EXAMINATION: MR BRAIN WITHOUT AND WITH CONTRAST CLINICAL INFORMATION: Posterior left eye pain. COMPARISON: CT head 02/13/2022. TECHNIQUE: Multiplanar MR imaging of the brain was performed without and with contrast. A total of 4 mL Gadavist was utilized for this examination. FINDINGS: There is homogeneous enhancement within the anterior lobe of the pituitary gland with no evidence of a discrete focus of differential enhancement characteristics to suggest the presence of a pituitary adenoma. The pituitary stalk deviates to the right. The overall height of the pituitary tissue remains within limits of normal variation. There is no suprasellar mass effect or chiasmatic compression. Cavernous sinuses enhance symmetrically. Cavernous internal carotid artery flow voids are maintained. Postcontrast images of the whole brain reveal no abnormal intracranial mass or enhancement. No intracranial mass effect or midline shift. Lateral and third ventricles are normal. No hydrocephalus. Midline structures including the cervicomedullary junction are normal. No acute bone marrow signal changes. There is no mastoid or middle ear effusion. There is a retention cyst within the alveolar recess of the left maxillary sinus. Trivial mucosal thickening within the ethmoid air cells. Globes and orbits are symmetric. MR/MR head/brain wo/w con IMPRESSION: Normal brain MRI.
[2024-02-12] MEDS: gadobutroL 2 ML VIAL IVPUSH ×2 (15:36→15:37)
== END 2024-02-12 14:53 | disposition home or self-care (01) ==
LOC: HO.MRI 14:52
PROVIDERS: PCP Physician Assistant; Visit Provider Psychiatry & Neurology Neurology
DX: D35.2 Benign neoplasm of pituitary gland (principal)
CPT/HCPCS: 70553; A9585

== ENCOUNTER 2024-12-20 13:23 | Outpatient (REF) | payer OTHER, SELFPAY ==
[2024-12-20 14:56] LABS: MANUAL DIFF FLAG NO
[2024-12-20 15:17] LABS: Basophils Percent Auto 0.2 % (0-2); Eosinophils Absolute Auto 0.1 X10*3/uL (0.0-0.4); Eosinophils Percent Auto 0.6 % (0-4); Hematocrit 41.3 % (37.0-47.0); Hemoglobin 13.7 g/dl (12.0-16.0); Imm Gran Abs Auto 0.04 X10*3/uL (0.00-0.03); Imm Gran Pct Auto 0.5 % (0.0-0.4); Lymphocytes Percent Auto 22.7 % (20-40); Mean Corpuscular HGB Conc 33.2 g/dl (31.0-35.0); Mean Corpuscular Hemoglobin 29.7 pg (27.0-33.0); Mean Corpuscular Volume 89.6 fL (80.0-98.0); Mean Platelet Volume 9.4 fL (9.4-12.3); Monocytes Absolute Auto 0.3 X10*3/uL (0.1-1.2); Monocytes Percent Auto 3.9 % (2-11); Neutrophils Absolute Auto 6.3 x10*3/uL (2.0-8.3); Neutrophils Percent Auto 72.1 % (45-73); Platelet Count 351 X10*3/uL (160-400); Red Blood Count 4.61 X10*6/uL (4.20-5.50); Red Cell Distribution Width 12.8 % (11.0-16.0); White Blood Count 8.7 X10*3/uL (4.8-10.8)
[2024-12-20 15:23] LABS: Appearance Urine Clear; Color Urine Yellow; Glucose Urine UA Negative (Negative); Leukocyte Esterase Urine Negative (Negative); Nitrite Urine Negative (Negative); PH 5.5 (5.0-9.0); UMIC TRIGGER UACC YES; Urine Blood Small (1+) (Negative); Urine Ketones Negative (Negative); Urine Protein Negative (Neg-Trace)
[2024-12-20 15:24] LABS: D Dimer High Sensitivity 172 NG/ML
[2024-12-20 16:00] LABS: Estimated Average Glucose 103 mg/dL; Hemoglobin A1c % 5.2 % (<6.0); Total Hemoglobin (HGBA1C) 3675.6608 umol/L
[2024-12-20 16:02] LABS: Bacteria Urine Trace (None Seen); Hyaline Casts Urine 0-2 /LPF (0-2); RBC Urine 0-2 /HPF (0-2); Squamous Epithelial Cell Urine 0-2 /HPF (0-2); WBC Urine 0-5 /HPF (0-5)
[2024-12-20 16:12] LABS: Erythrocyte Sedimentation Rate 16 MM/HR (0-20)
[2024-12-20 16:19] LABS: Alanine Aminotransferase 19 U/L (0-31); Albumin Level 4.3 g/dL (3.5-5.0); Alkaline Phosphatase 74 U/L (39-117); Anion Gap 13 (12-20); Aspartate Amino Transferase 21 U/L (5-31); Bilirubin Total 0.4 mg/dL (0.0-1.0); Blood Urea Nitrogen 10 mg/dL (9-16); C Reactive Protein 0.77 mg/dL (< or = 0.50); Calcium 9.3 mg/dL (8.4-10.2); Carbon Dioxide 27 mmol/L (22-29); Chloride 103 mmol/L (96-108); Cholesterol 206 mg/dL (<200); Estimated Glomerular Filt Rate > 60; Glucose Random 85 mg/dL (60-115); HDL Cholesterol 68 mg/dL (>40); LDL Cholesterol Calculated 118 mg/dL (<100); Potassium 4.1 mmol/L (3.3-5.1); Sodium 139 mmol/L (135-145); Total Protein 8.1 g/dL (6.5-8.0); Triglycerides 100 mg/dL (<150)
[2024-12-20 16:23] LABS: Folate 11.7 ng/mL (> or = 4.0); Vitamin B12 609 pg/mL (200-900)
[2024-12-23 15:33] LABS: Anti Nuclear Antibody Pattern Nuclear, Speckled; Anti Nuclear Antibody Screen POSITIVE (NEGATIVE); Anti Nuclear Antibody Titer 1:40 titer
== END 2024-12-20 13:24 | disposition home or self-care (01) ==
LOC: HO.LAB 13:23
PROVIDERS: PCP Physician Assistant
DX: M25.50 Pain in unspecified joint (principal); R00.2 Palpitations; J45.20 Mild intermittent asthma, uncomplicated; R31.9 Hematuria, unspecified; M79.89 Other specified soft tissue disorders; M54.50 Low back pain, unspecified; Z00.00 Encounter for general adult medical examination without abnormal findings; E78.00 Pure hypercholesterolemia, unspecified; Z13.1 Encounter for screening for diabetes mellitus
CPT/HCPCS: 36415; 80053; 80061; 81001; 81002; 82607; 82746; 83036; 84443; 85025; 85379; 85652; 86038; 86039; 86140; 93005; 96127; 99212

== ENCOUNTER 2024-12-20 13:23 | Outpatient (AMB) | payer OTHER, SELFPAY ==
--- NOTE | 2024-12-20 13:30 | A.OFFPC_ITS ---
Vital Signs 12/20/24 13:33 Height 5 ft Weight 185 lb 8 oz BMI 36.2 BP 112/80 Blood Pressure Location Lt brachial Position Sitting Pulse 76 Pulse Source Pulse Oximeter Temp 96.9 F Temp Source Skin Pulse Oximetry (%) 98 Oxygen Delivery Method Room Air Intake Visit Reasons: her Kidney is in pain, Headache, her hands burning Intake Note: Patient is here to follow up on dizziness, fatigue, swelling of both hands with burning sensation, left lower back pain, SOB, Palpation ongoing for a year but worse within the last two weeks. 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 Assistant: Not Required per policy Accompanied by: Self / Same As Patient Allergies acetaminophen [Percocet] Allergy (Unknown, Verified 12/20/24 13:32) heart races oxycodone [OXYCODONE] Adverse Reaction (Unknown, Verified 12/20/24 13:32) PALPITATIONS Medication List - Last Reconciled 12/20/24 by Tosha Rios PA-C albuterol sulfate 90 mcg/actuation 1 inh inhalation QID 30 days blood pressure test kit-large As directed citalopram (Celexa) 20 mg PO DAILY 30 days ibuprofen 800 mg PO Q12H lorazepam (Ativan) 0.5 mg PO DAILY PRN melatonin 10 mg PO BEDTIME PRN 60 days Tobacco use date assessed: 12/20/24 Dental Screening Dental Screen Date: 12/20/24 Did you have a dental visit in the last 12 months?: No Did you have a dental problem in the last 6 months where you did not have access to dental care?: No Was dental information given to patient?: No HPI her Kidney is in pain, Headache, her hands burning HPI Details 49-year-old female with past medical his tory of obstructive sleep apnea, generalized anxiety disorder, asthma last seen in 2022 coming in for acute problem.? In review of the notes, patient follows with Neurology last seen 12/2023 started on topiramate for migraine prevention advised to follow up in 2 months. Patient tells us today she has been having generalized swelling of the arms and legs for several years however the left arm and wrist became suddenly swollen over the last several days and is now become painful. He also has a history of easy bruising primarily behind the head and over the feet which has been going on for several years as well. She has a history of heart palpitations and was previously evaluated by a merchant miller and had a Holter monitor completed but never received the results and has not had follow up since. She continues to have intermittent palpitations occasionally with shortness of breath that are not exacerbated by exercise and not associated with chest pains. She also mentions having left-sided low back pain that began yesterday. She also has a history of suprapubic cramping which happens routinely every month around her menses however she does not have a uterus so she does not have any vaginal bleeding. The low back pain does not radiate down the leg and is consistent in 1 spot in the left side of the low back. She does mentioned she had a fall down 2-3 stairs yesterday however she landed on her right side and does not have any pain or symptoms relating to the fall. [facility] Medical History Joint pain Numbness and tingling of right thumb Numbness and tingling of left thumb Heart palpitations Anxiety HTN (hypertension) Irritable bowel Asthma Fibromyalgia Pituitary tumor Pseudotumor Surgical History History of cholecystectomy History of biopsy History of delivery History of hysterectomy Family History Mother Diabetes Heart defect Thyroid disease Heart attack, Onset Age: 29 Mental health disorder Father Diabetes Hypertension Social History (Updated 12/20/24 @ 13:41 by Jose Miguel Ochao Keven) Housing: Apartment Alcohol intake: current Alcohol intake frequency: holidays/special occasions only Patient Tobacco Use Status: Former Tobacco user Tobacco use type: Cigarette e-Cigarette/Vaping Use: Never Used Second Hand Smoke Exposure: Yes service: No Current occupational status: disabled Cognitive needs: No Hearing needs: No Vision needs: Yes (Glasses) Questionnaire PHQ-9 Over the last 2 weeks, how often have you been bothered by any of the following problems? 1. Little interest or pleasure in doing things: not at all 2. Feeling down, depressed, or hopeless: not at all 3. Trouble falling or staying asleep, or sleeping too much: not at all 4. Feeling tired or having little energy: not at all 5. Poor appetite or overeating: not at all 6. Feeling bad about yourself - or that you are a failure or have let yourself or your family down: not at all 7. Trouble concentrating on things, such as reading the newspaper or watching television: not at all 8. Moving or speaking so slowly that other people could have noticed. Or the opposite - being so fidgety or restless that you have been moving around a lot more than usual: not at all 9. Thoughts that you would be better off or of hurting yourself in some way: not at all Total score: 0 Depression Screening Interpretation: Negative Depression Screening Done: Yes Source: Developed by Drs. Delmar Walker, Corinna Mccoy, Ty Cuevas and colleagues, with an educational reyes from [employer]. Thrive Questionnaire Date Thrive assessed: 12/20/24 I am a: Patient What is your living situation today?: I have a steady place to live Within the past 12 months, did the food you bought not last and you didn't have the money to get more?: Never true Within the past 12 months, did you worry whether your food would run out before you got money to buy more?: Never true Do you have trouble paying for medicines?: No Do you have trouble getting transportation to medical appointments?: No Do you have trouble paying your heating and electricity bill?: No Do you have trouble taking care of your child, family member or friend?: No Do you have trouble with day-to-day activities such as bathing, preparing meals, shopping, managing finances, etc.?: No Are you currently unemployed and looking for a job?: No Are you interested in more education?: No Please select the resources that you would like help with: None Currently or been in a relationship where the following occur: No concerns reported THRIVE Score: 0 AUDIT C Alcohol Use Questionnaire (AUDIT-C) 1. How often do you have a drink containing alcohol?: Monthly or less 2. How many drinks containing alcohol do you have on a typical day when you are drinking?: 1 or 2 Total Score: 1 JUDY-7 AMB Questionnaire JUDY-7 Date JUDY - 7 assessed: 12/20/24 Feeling nervous, anxious, or on edge: 0 = Not at all Not being able to stop or control worryin = Not at all Worrying too much about different things: 0 = Not at all Trouble relaxin = Not at all Being so restless that it is hard to sit still: 0 = Not at all Becoming easily annoyed or irritable: 0 = Not at all Feeling afraid as if something awful might happen: 0 = Not at all Total JUDY-7 score (0-4 normal; 5-9 mild; 10-14 moderate; 15-21 severe): 0 Source: Developed by Drs. Delmar Walker, Corinna Mccoy, Ty Cuevas and colleagues, with an educational reyes from [employer]. Review of Systems Const Denies body aches, Denies chills, Denies fever(s), Denies headache(s) and Denies poor appetite Eyes Reports no additional complaints ENT Denies dysphagia, Denies dizziness, Denies headache(s) and Denies odynophagia Card Denies chest pain, Denies syncope, Denies edema, Reports irregular heart rhythm, Denies lightheadedness, Reports palpitations and Denies dyspnea Resp Denies cough and Denies dyspnea GI Denies abdominal pain, Denies constipation, Denies dysphagia, Denies diarrhea, Denies nausea, Denies odynophagia and Denies vomiting Reports no additional complaints Musc Details: Left-sided Low back pain. Left arm swelling and tenderness Denies abnormal gait Skin/Breast Reports system reviewed and no additional complaints, except as documented Neuro Denies abnormal gait, Denies dizziness, Denies syncope and Denies headache(s) Psych Reports no additional complaints Endo Reports palpitations Physical exam (Primary Care) Vital Signs: Last Vital Signs Temp 96.9 F 12/20/24 13:33 Pulse 76 12/20/24 13:33 BP 112/80 12/20/24 13:33 Pulse Ox 98 12/20/24 13:33 Oxygen Delivery Method Room Air 12/20/24 13:33 BMI result Body Mass Index 36.2 Tobacco/Smoking Status: Tobacco use Status Tobacco use date assessed 12/20/24 12/20/24 13:37 Patient Tobacco Use Status Former Tobacco user 12/20/24 13:41 Tobacco use type Cigarette 12/20/24 13:41 e-Cigarette/Vaping Use Never Used 12/20/24 13:41 PHQ-9: PHQ-9 Score PHQ-9: Total score 0 12/21/24 08:20 Depression Screening Interpretation: Negative Thrive Assessment: Date of Thrive Assessment Date Thrive assessed 12/20/24 12/20/24 13:37 Currently or been in a relationship where the following occur: No concerns reported Const General: cooperative, healthy appearing, comfortable and no acute distress Orientation/consciousness: patient oriented x3 HENNV Head: Yes normocephalic Ears: hearing grossly normal bilaterally General nose exam: Normal external nose present Eyes General: appearance normal, both eyes and all related structures Conjunctivae: conjunctivae normal Neck Neck: Yes full ROM and Yes no lymphadenopathy Resp Effort & Inspection: normal respiratory effort Auscultation: clear to auscultation bilaterally, no crackles, no rales, no rhonchi and no wheezes Cardio Rate: regular rate Rhythm: regular rhythm GI Palpation (GI): Soft to palpation, not firm, nontender, no guarding, not rigid and no masses Back/Spine/Pelvis Other: Tenderness to palpation over left flank. No tenderness to palpation over spine or right flank Skin General skin exam: no rashes or lesions noted Neuro General: patient oriented x3 Gait exam (Neuro): Normal gait present Extrem Other: Swelling of the left forearm and left wrist with tenderness to palpation. Intact sensation, pulses and strength in bilateral upper extremities General: Yes normal to inspection, Yes full ROM and No edema Psych Affect: normal affect Attitude: cooperative Insight: Good insight present (Psych) Judgement: Good judgement present (Psych) Office Procedures EKG Details: Sinus arrhythmia consistent with previous EKGs no significant change. No evidence of ischemia right atrial fibrillation [id number], Complete Results AMB Urinalysis Dipstick UR Leukocytes Negative Last Edit by ANGEL Lackey on 12/20/24 14:03 UR Nitrite Negative Last Edit by ANGEL Lackey on 12/20/24 14:03 UR Urobilinogen Normal Last Edit by ANGEL Lackey on 12/20/24 14:03 UR Protein Negative Last Edit by ANGEL Lackey on 12/20/24 14:03 UR Ph 5.5 Last Edit by ANGEL Lackey on 12/20/24 14:03 UR Blood Trace Last Edit by ANGEL Lackey on 12/20/24 14:03 UR Specific [place] 1.030 Last Edit by ANGEL Lackey on 12/20/24 14: 03 UR Ketone Negative Last Edit by ANGEL Lackey on 12/20/24 14:03 UR Bilirubin Negative Last Edit by ANGEL Lackey on 12/20/24 14:03 UR Glucose Negative Last Edit by ANGEL Lackey on 12/20/24 14:03 Results Reviewed Results Reviewed: Laboratory Last Values Urine pH (Clinic) 5.5 12/20/24 13:46 Specific [place] (Clinic) 1.030 12/20/24 13:46 Ur Protein (Clinic) Negative 12/20/24 13:46 Ur Ketones (Clinic) Negative 12/20/24 13:46 Urine Blood (Clinic) Trace A* 12/20/24 13:46 Urine Nitrite Negative 12/20/24 13:46 Urine Bilirubin (Clinic) Negative 12/20/24 13:46 Urobilinogen (Clinic) Normal 12/20/24 13:46 Leukocyte Esterase (Clinic) Negative 12/20/24 13:46 Urine Glucose (Clinic) Negative 12/20/24 13:46 Coding Level of Care Code Est Pt Level 4 (80209) Diagnoses Joint pain M25.50 Heart palpitations R00.2 Mild intermittent asthma, unspecified whether complicated J45.20 Asthma complication type: unspecified Asthma persistence: intermittent Asthma severity: mild Hematuria R31.9 Left arm swelling M79.89 Left low back pain M54.50 CPT Codes EKG - CPT: 11936-[id number], Complete ([id number]) Assessment & Plan Assessment & Plan (1) Joint pain: Code(s): M25.50 - Pain in unspecified joint Category: Medical Plan: Patient complaining of diffuse joint pain that has been ongoing for several ye ars. She previously was GERMAN positive was being considered for rheumatologic condition however GERMAN was negative on repeat examination. I did order for repeat GERMAN and inflammatory markers for further evaluation Due to extensive amount of concerns today patient will follow up on this concern at her next visit next week. (2) Heart palpitations: Code(s): R00.2 - Palpitations Category: Medical Plan: Patient complaining of heart palpitations she previously did complete a Holter monitor many years ago however was never given the results and was not followed by a merchant miller. Ordered for repeat Holter monitor as patient complains of palpitations about ongoing for several years. She denies any chest pain or shortness of breath with these palpitation but we will has a multiple times per week. EKG in the office showing sinus arrhythmia which is consistent with her last EKGs. (3) Asthma: Code(s): J45.909 - Unspecified asthma, uncomplicated Category: Medical Qualifiers: Asthma complication type: unspecified Asthma persistence: intermittent Asthma severity: mild Qualified Code(s): J45.20 - Mild intermittent asthma, uncomplicated Plan: Asthma currently controlled on present medications. Continue on albuterol as needed. Avoid triggers such as allergies. (4) Hematuria: Code(s): R31.9 - Hematuria, unspecified Category: Medical Plan: Patient having hematuria on UA today concerning for kidney stone. Sent for culture to evaluate for possible infection and ordered for renal ultrasound bilaterally. (5) Left arm swelling: Code(s): M79.89 - Other specified soft tissue disorders Category: Medical Plan: Patient having acute left arm pain and swelling. Ordered for stat ultrasound of the upper extremity to rule out DVT. (6) Left low back pain: Code(s): M54.50 - Low back pain, unspecified Category: Medical Plan: Patient complaining of 3 days of low back pain that has been persistent in the left lower back and does not radiate. On exam abdomen is soft and nontender. Urinalysis shows hematuria concern for possible kidney stone. Ordered for renal ultrasound for further evaluation. Differential also includes possible muscle strain she did have a fall several days ago but fell on the right side. Also ordered for lumbar spine x-ray for further evaluation however on exam no tenderness to palpation over the spine and no palpable deformities. I discussed with patient if her pain becomes unmanageable she can go to ED for further evaluation. At this time continue to use ibuprofen and Tylenol as needed for pain. Plan This note was constructed using voice recognition software. While every effort has been made to ensure accuracy and child development teacher, still areas may have been included sometimes these areas may affect the content or meeting of the given symptoms. Total time spent caring for the patient today was 20 minutes. This includes time spent before the visit reviewing the chart, time spent during the visit, and time spent after the visit and documentation. Orders: Orders AMB EKG-In Office 12/20/24 Z13.6 - Encounter for screening for cardiovascular disorders Complete Blood Count Auto Diff 12/20/24 Z00.00 - Encounter for general adult medical examination without abnormal findings Lipid Panel 12/20/24 E78.00 - Pure hypercholesterolemia, unspecified Erythrocyte Sedimentation Rate 12/20/24 M25.50 - Pain in unspecified joint C Reactive Protein 12/20/24 M25.50 - Pain in unspecified joint D Dimer High Sensitivity 12/20/24 M79.89 - Other specified soft tissue disorders GERMAN Reflex Titer and Pattern 12/20/24 M25.50 - Pain in unspecified joint US renal BI 12/20/24 M54.50 - Low back pain, unspecified, R31.9 - Hematuria, unspecified ECG 3 day holter monitor 12/20/24 R00.2 - Palpitations Hemoglobin A1c 12/20/24 Z13.1 - Encounter for screening for diabetes mellitus AMB Urinalysis Dipstick 12/20/24 Z13.9 - Encounter for screening, unspecified US arterial duplex UE LT 12/20/24 M79.89 - Other specified soft tissue disorders Comprehensive Met. Panel 12/20/24 Z00.00 - Encounter for general adult medical examination without abnormal findings Vitamin B12 and Folate 12/20/24 Z00.00 - Encounter for general adult medical examination without abnormal findings TSH reflex Free T4 12/20/24 Z00.00 - Encounter for general adult medical examination without abnormal findings UA CC w/rflx Micro + Cult 12/20/24 R31.9 - Hematuria, unspecified XR lumbar spine 2-3V Today M54.50 - Low back pain, unspecified Medications: Refilled melatonin 10 mg PO BEDTIME 60 days PRN 60 caps 1RF sleep F41.1 - Generalized anxiety disorder albuterol sulfate 90 mcg/actuation 1 inh inhalation QID 30 days 8.5 grams 3RF J45.20 - Mild intermittent asthma, uncomplicated
[2024-12-20 13:33] VITALS: BP 112/80; PULSE 76; TEMP 36.1; O2SAT 98; BMI 36.2
== END 2024-12-20 14:33 | disposition home or self-care (01) ==
PROVIDERS: PCP Physician Assistant
DX: M25.50 Pain in unspecified joint (principal); R00.2 Palpitations; J45.20 Mild intermittent asthma, uncomplicated; R31.9 Hematuria, unspecified; M79.89 Other specified soft tissue disorders; M54.50 Low back pain, unspecified

== ENCOUNTER 2024-12-27 08:15 | Outpatient (REF) | payer OTHER, SELFPAY ==
--- NOTE | ~2024-12-27 | US_ITS ---
EXAMINATION: US TRIPLEX UPPER EXTREMITY, LEFT CLINICAL INFORMATION: Edema, left upper extremity. COMPARISON: None available. TECHNIQUE: Color-flow triplex imaging with spectral analysis and compression Doppler was performed on the left upper extremity. FINDINGS: The left internal jugular, subclavian, and axillary veins are patent and free of thrombus. The imaged segment of the left brachiocephalic vein is patent. Spectral doppler waveforms are normal. There is an intraluminal abnormality in the distal left basilic vein with partial compressibility and augmentation. The brachial, , radial, and ulnar veins are patent and compressible. US/US venous duplex UE LT IMPRESSION: No acute deep venous thrombosis, left upper extremity. Nonocclusive thrombus in the distal left basilic vein. Electronically signed by: Anthony Price MD 12/27/2024 09:03 AM [facility]
== END 2024-12-27 08:16 | disposition home or self-care (01) ==
LOC: HO.HMGCX 08:15
PROVIDERS: PCP Physician Assistant
DX: Z00.01 Encounter for general adult medical examination with abnormal findings (principal); M79.89 Other specified soft tissue disorders; M54.50 Low back pain, unspecified; R76.8 Other specified abnormal immunological findings in serum; M25.561 Pain in right knee; M25.562 Pain in left knee; R31.29 Other microscopic hematuria; I82.612 Acute embolism and thrombosis of superficial veins of left upper extremity; F33.1 Major depressive disorder, recurrent, moderate; F41.1 Generalized anxiety disorder; Z28.21 Immunization not carried out because of patient refusal
CPT/HCPCS: 90471; 93971; 96127; 99396

== ENCOUNTER → 2024-12-27 08:20 | Outpatient (BNV) | payer OTHER, SELFPAY | PROVIDERS: PCP Physician Assistant; Visit Provider Radiology Diagnostic Radiology | DX: M79.89 Other specified soft tissue disorders (principal) | CPT/HCPCS: 93971 ==

== ENCOUNTER 2024-12-27 13:23 | Outpatient (AMB) | payer OTHER, SELFPAY ==
--- NOTE | 2024-12-27 13:33 | MHC.PC.OV ---
Vital Signs 12/27/24 13:39 Height 5 ft Weight 187 lb 2 oz BMI 36.5 BP 136/90 H Blood Pressure Location Rt brachial Position Sitting Pulse 94 Pulse Source Pulse Oximeter Temp 97.1 F Temp Source Temporal Artery Scan Pulse Oximetry (%) 100 Oxygen Delivery Method Room Air Intake Visit Reasons: Annual PE Breaster Required: No Accompanied by: Daughter Allergies acetaminophen [Percocet] Allergy (Unknown, Verified 12/27/24 13:43) heart races oxycodone [OXYCODONE] Adverse Reaction (Unknown, Verified 12/27/24 13:43) PALPITATIONS Medication List - Last Reconciled 12/27/24 by Kenny Taylor PA-C albuterol sulfate 90 mcg/actuation 1 inh inhalation QID 30 days blood pressure test kit-large As directed citalopram (Celexa) 20 mg PO DAILY 30 days ibuprofen 800 mg PO Q12H lorazepam (Ativan) 0.5 mg PO DAILY PRN melatonin 10 mg PO BEDTIME PRN 60 days Tobacco use date assessed: 12/20/24 Dental Screening Dental Screen Date: 12/20/24 HPI Annual PE HPI Details Patient is a 49-year-old female today for routine annual physical Patient has a past medical history significant for generalized anxiety disorder, family history of heart disease, heart palpitations, asthma. Major concern--> She reports persistent swelling and pain in her arm and legs, with difficulties in climbing stairs and walking due to the burning pain and significant swelling. These symptoms have been ongoing for approximately a year and a half. A few days ago, a nurse practitioner suggested the possibility of a blood clot, in fact her left upper extremity had a nonocclusive thrombus of the distal left basilic vein. Also the patient recently tested positive for Antinuclear Antibody (GERMAN). Past testing in 2019 also returned a positive GERMAN result, but subsequent tests in 2022 were negative until the recent positive finding. The patient experienced difficulty accessing care and reports significant pain and swelling, attributing a possible rheumatological issue. She mentions a blurry vision predominantly in her left eye and a benign cyst detected years ago. The patient also has a history of microscopic hematuria seen as early as 2019 with fluctuating amounts of trace bacteria but without confirmed urinary tract infections. There is concern regarding elevated protein and cholesterol levels as well. 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 [facility] Medical History Joint pain Numbness and tingling of right thumb Numbness and tingling of left thumb Heart palpitations Anxiety HTN (hypertension) Irritable bowel Asthma Fibromyalgia Pituitary tumor Pseudotumor Surgical History History of cholecystectomy History of biopsy History of delivery History of hysterectomy Family History Mother Diabetes Heart defect Thyroid disease Heart attack, Onset Age: 29 Mental health disorder Father Diabetes Hypertension Social History Housing: Apartment Alcohol intake: current Alcohol intake frequency: holidays/special occasions only Patient Tobacco Use Status: Former Tobacco user Tobacco use type: Cigarette e-Cigarette/Vaping Use: Never Used Second Hand Smoke Exposure: Yes service: No Current occupational status: disabled Cognitive needs: No Hearing needs: No Vision needs: Yes (Glasses) Questionnaire PHQ-9 Over the last 2 weeks, how often have you been bothered by any of the following problems? 1. Little interest or pleasure in doing things: nearly every day 2. Feeling down, depressed, or hopeless: more than half the days 3. Trouble falling or staying asleep, or sleeping too much: nearly every day 4. Feeling tired or having little energy: nearly every day 5. Poor appetite or overeating: several days 6. Feeling bad about yourself - or that you are a failure or have let yourself or your family down: several days 7. Trouble concentrating on things, such as reading the newspaper or watching television: nearly every day 8. Moving or speaking so slowly that other people could have noticed. Or the opposite - being so fidgety or restless that you have been moving around a lot more than usual: nearly every day 9. Thoughts that you would be better off or of hurting yourself in some way: not at all Total score: 19 Depression Screening Interpretation: Positive Depression Screening Follow-up: Existing condition and Community Mental Health Worker F/U Depression Screening Done: Yes 99146 - PHQ-9 Billing: Yes Source: Developed by Drs. Delmar Walker, Corinna Mccoy, Ty Cuevas and colleagues, with an educational reyes from [employer]. Thrive Questionnaire Date Thrive assessed: 12/27/24 I am a: Patient What is your living situation today?: I have a steady place to live Within the past 12 months, did the food you bought not last and you didn't have the money to get more?: Often true Within the past 12 months, did you worry whether your food would run out before you got money to buy more?: Often true Do you have trouble paying for medicines?: No Do you have trouble getting transportation to medical appointments?: No Do you have trouble paying your heating and electricity bill?: Yes Do you have trouble taking care of your child, family member or friend?: No Do you have trouble with day-to-day activities such as bathing, preparing meals, shopping, managing finances, etc.?: Yes Are you currently unemployed and looking for a job?: No Are you interested in more education?: No Please select the resources that you would like help with: None Currently or been in a relationship where the following occur: I choose not to answer THRIVE Score: 3 AUDIT C Alcohol Use Questionnaire (AUDIT-C) 1. How often do you have a drink containing alcohol?: Never 3. How often do you have six or more drinks on one occasion?: Never Total Score: 0 JUDY-7 AMB Questionnaire JUDY-7 Date JDUY - 7 assessed: 12/27/24 Feeling nervous, anxious, or on edge: 3 = Nearly every day Not being able to stop or control worryin = Nearly every day Worrying too much about different things: 3 = Nearly every day Trouble relaxin = Nearly every day Being so restless that it is hard to sit still: 2 = More than half the days Becoming easily annoyed or irritable: 3 = Nearly every day Feeling afraid as if something awful might happen: 3 = Nearly every day Total JUDY-7 score (0-4 normal; 5-9 mild; 10-14 moderate; 15-21 severe): 20 Source: Developed by Aditya Hamiltonet B.W. Darius, Ty Cuevas and colleagues, with an educational reyes from [employer]. JUDY-7 Assessment Billing JUDY-7 Assessment Tool: JUDY-7 Assessment 28532 Review of Systems Const Denies body aches, Denies chills, Denies excessive sweating, Denies fatigue, Denies fever(s) and Denies headache(s) Eyes Denies blurry vision ENT Denies dysphagia, Denies vertigo, Denies dizziness, Denies headache(s), Denies hearing loss and Denies tinnitus Card Denies chest pain, Denies chest pain with activity, Denies syncope, Denies irregular heart rhythm and Denies dyspnea Resp Denies chest congestion, Denies cough, Denies hemoptysis, Denies dyspnea and Denies wheezing GI Denies abdominal pain, Denies melena, Denies hematochezia, Denies coffee ground emesis, Denies dysphagia, Denies diarrhea, Denies nausea and Denies vomiting Denies urinary frequency, Denies dysuria, Denies urinary hesitancy and Denies urinary urgency Musc Denies arthralgias, Denies limited range of motion, Denies muscle cramps and Denies muscle weakness Skin/Breast Denies rash and Denies skin ulcer Neuro Denies Abnormal speech present, Denies confusion, Denies vertigo, Denies dizziness, Denies syncope, Denies headache(s), Denies memory loss and Denies seizure-like activity Psych Denies anxiety, Denies confusion, Denies depression, Denies memory loss, Denies panic attacks and Denies paranoia Endo Denies excessive sweating, Denies fatigue, Denies flushing, Denies polydipsia and Denies polyuria Aller/Immun Denies wheezing Physical exam (Primary Care) Vital Signs: Last Vital Signs Temp 97.1 F 12/27/24 13:39 Pulse 94 12/27/24 13:39 BP 136/90 H 12/27/24 13:39 Pulse Ox 100 12/27/24 13:39 Oxygen Delivery Method Room Air 12/27/24 13:39 BMI result Body Mass Index 36.5 Tobacco/Smoking Status: Tobacco use Status Tobacco use date assessed 12/20/24 12/27/24 13:34 Patient Tobacco Use Status Former Tobacco user 12/27/24 13:34 Tobacco use type Cigarette 12/27/24 13:34 e-Cigarette/Vaping Use Never Used 12/27/24 13:34 PHQ-9: PHQ-9 Score PHQ-9: Total score 19 12/27/24 16:58 Depression Screening Interpretation: Positive Depression Screening Follow-up: Existing condition and Community Mental Health Worker F/U Thrive Assessment: Date of Thrive Assessment Date Thrive assessed 12/27/24 12/27/24 13:34 Currently or been in a relationship where the following occur: I choose not to answer Const General: cooperative, comfortable, no acute distress, alert and awake; No confusion Orientation/consciousness: oriented to person, oriented to place, patient oriented x3 and No confusion HENMT Head: Yes normocephalic Ears: external ears normal and TM's normal bilaterally Face and sinus: No sinus tenderness Mouth: Normal oral and palatal mucosa present and tongue normal Teeth and gingiva: dentition normal and gingiva normal Throat: Yes posterior oropharynx normal, Yes tonsils normal and Yes uvula midline Eyes Conjunctivae: conjunctivae normal Sclerae: sclerae normal Pupils: Equal, round and reactive pupils present EOM: EOMs intact bilaterally Direct Ophthalmoscopy: No no photophobia Neck Neck: Yes no lymphadenopathy, No tender and Yes no JVD Thyroid: Thyroid normal Carotids: no bruits Chest Chest palpation & inspection: no tenderness Resp Effort & Inspection: normal respiratory effort, no audible wheezes, not labored and no stridor Auscultation: no crackles, no rales, no rhonchi and no wheezes Cardio Jugular venous distension: no JVD Rate: regular rate, not bradycardic and not tachycardic Rhythm: regular rhythm Bruits: no carotid bruits Peripheral pulses: Peripheral pulses 2+ throughout GI Inspection: Yes normal to inspection, No abdominal wall ecchymosis and No visible herniation Palpation (GI): Soft to palpation, nontender, no guarding, not rigid and No hepatosplenomegaly present Auscultation: normoactive bowel sounds General: Yes no CVA tenderness Back/Spine/Pelvis Back: no CVA tenderness and No back tenderness Cervical Spine: cervical ROM normal Thoracic/Lumbar Spine: thoracic and lumbar spine normal to inspection, straight leg raise negative bilaterally, No thoraco-lumbar ROM limited and No lumbar spinal tenderness Skin Lesions: no lesions Rashes: no rashes Wounds: no wounds Neuro General: oriented to person, oriented to place, patient oriented x3, CN's II-XI intact bilaterally and No confusion Cranial nerves: Yes Equal, round and reactive pupils present and Yes Normal accommodation reflex present Cognition (Neuro): normal cognition Speech: No Abnormal speech present Gait exam (Neuro): Normal gait present Motor exam (neuro): 5/5 motor strength present throughout Extrem Other: Right upper extremity: full ROM; no cyanosis Left upper extremity: full ROM; no cyanosis Right lower extremity: edema Left lower extremity: edema Psych Appearance: grossly normal Mental Status: mental status grossly normal Affect: normal affect Attitude: cooperative Thought process: Normal thought process present Office Procedures Flu Questionnaire Does the patient have a severe egg allergy?: No Does the patient have severe life threatening allergies?: No Does the patient have a fever or illness today?: No Has the patient ever had Guillain-[place] Syndrome?: No Has the patient ever had any past reaction to a flu shot?: No Immunizations Fluarix Triv 1008-1324 (PF) 45 mcg (15 mcg x 3)/0.5 mL IM syringe Performing Provider: Kenny Taylor PA-C [facility] Documented (not given) by: PANFILO Barahona on 12/27/24 13:40 Reason Not Given: Patient Refused Coding Level of Care Code Est Pt Prev Care 40-64y(01239) Diagnoses Annual physical exam Z00.00 Lumbar spine pain M54.5 GERMAN positive R76.8 Arthralgia of both knees M25.561; M25.562 Joint pain location: knee Laterality: bilateral Other microscopic hematuria R31.29 Hematuria type: other microscopic Thrombosis of left upper extremity I82.602 Encounter for screening mammogram for malignant neoplasm of breast Z12.31 Breast cancer screening modality: mammogram Colon cancer screening Z12.11 JUDY (generalized anxiety disorder) F41.1 MDD (major depressive disorder), recurrent episode, moderate F33.1 Additional Codes JUDY-7 Assessment Billing - JUDY-7 Assessment Tool: JUDY-7 Assessment 69262 ([id number]) PHQ-9 - 46870 - PHQ-9 Billing: Yes ([id number]) Assessment & Plan Assessment & Plan (1) Annual physical exam: Code(s): Z00.00 - Encounter for general adult medical examination without abnormal findings Category: Medical Plan: As per HPI (2) Lumbar spine pain: Code(s): M54.5 - Low back pain Category: Medical Plan: Patient has lumbar spine x-ray ordered. Will do this at her convenience. She does have signs and symptoms of lumbar radiculopathy and/or sciatica. (3) GERMAN positive: Code(s): R76.8 - Other specified abnormal immunological findings in serum Category: Medical Plan: Patient's most recent and a positive has been positive in the past, had rheumatology evaluation in the past with mostly negative results. She is fairly swollen today in office and has multiple joints affected. Recently found to have a thrombus in left upper extremity. Will try to get her a sooner appointment with Rheumatology to evaluate. Will send for double-stranded DNA WIll trial steroids to manage inflammation pending detailed rheumatologic evaluation (4) Joint pain: Code(s): M25.50 - Pain in unspecified joint Category: Medical Qualifiers: Joint pain location: knee Laterality: bilateral Qualified Code(s): M25.561 - Pain in right knee; M25.562 - Pain in left knee Plan: During today's consultation, we discussed the positive GERMAN and the implications of a possible autoimmune condition such as lupus or rheumatoid arthritis necessitating rheumatology intervention (5) Hematuria: Code(s): R31.9 - Hematuria, unspecified Category: Medical Qualifiers: Hematuria type: other microscopic Qualified Code(s): R31.29 - Other microscopic hematuria Plan: Patient has been noted to have trace to 1+ red blood cells in urine, has scheduled renal ultrasound in the next few weeks. No particular history of nephrolithiasis. (6) Thrombosis of left upper extremity: Code(s): I82.602 - Acute embolism and thrombosis of unspecified veins of left upper extremity Category: Medical Plan: Hematology consultation for formal evaluation of the suspected upper extremity thrombus and to explore possible coagulopathy. - Initiate a blood thinner, likely Eliquis, to address the suspected blood clot pending further hematology evaluation. (7) Breast cancer screening: Code(s): Z12.39 - Encounter for other screening for malignant neoplasm of breast Category: Medical Qualifiers: Breast cancer screening modality: mammogram Qualified Code(s): Z12.31 - Encounter for screening mammogram for malignant neoplasm of breast Plan: Will try for screening mammogram (8) Colon cancer screening: Code(s): Z12.11 - Encounter for screening for malignant neoplasm of colon Category: Medical Plan: Patient willing to do Cologuard (9) JUDY (generalized anxiety disorder): Code(s): F41.1 - Generalized anxiety disorder Category: Medical Plan: Patient's JUDY-7 score positive for anxiety which has been existing condition for her. She was on SSRI therapy in the past though had side effect. She is willing to start cognitive behavioral therapy again (10) MDD (major depressive disorder), recurrent episode, moderate: Code(s): F33.1 - Major depressive disorder, recurrent, moderate Category: Medical Plan: Patient's PHQ-9 score positive for depression which has been existing condition for her. She has been on SSRI therapy in the past though had side effect. She is willing to try mental health therapy again to help her with her depressed mood. She feels most of her depressed mood is due to her chronic pain and medical conditions that have not been diagnosed as of yet. For now will hold off on mental health medications until absolutely necessary. Orders: Orders Anti DNA DS Antibody 12/27/24 R76.8 - Other specified abnormal immunological findings in serum Influenza [id number] Immunization 12/27/24 Z23 - Encounter for immunization US bladder 12/27/24 R31.29 - Other microscopic hematuria MM screening mammo BI 12/27/24 Z12.31 - Encounter for screening mammogram for malignant neoplasm of breast, Z12.39 - Encounter for other screening for malignant neoplasm of breast Referrals Hematology & Oncology Referral I82.602 - Acute embolism and thrombosis of unspecified veins of left upper extremity Cologuard Test Z12.11 - Encounter for screening for malignant neoplasm of colon Rheumatology Referral R76.8 - Other specified abnormal immunological findings in serum Counseling Referral F41.1 - Generalized anxiety disorder Medications: New apixaban (Eliquis) 5 mg PO BID 60 tabs 1RF 30 days I82.602 - Acute embolism and thrombosis of unspecified veins of left upper extremity prednisone Take 5 tablets x4 days, 4 tablets x4 days, 3 tablets x4 days, 2 tablets x4 days, 1 tablet x4 days 5 mg PO DIRECTED 60 tabs 0RF 20 days R76.8 - Other specified abnormal immunological findings in serum, Z12.11 - Encounter for screening for malignant neoplasm of colon Discontinued ibuprofen Discontinued Reason: Doctor's Order 800 mg PO Q12H 60 tabs 2RF M54.5 - Low back pain
[2024-12-27 13:39] VITALS: BP 136/90; PULSE 94; TEMP 36.2; O2SAT 100; BMI 36.5
== END 2024-12-27 14:31 | disposition home or self-care (01) ==
PROVIDERS: PCP Physician Assistant; Visit Provider Physician Assistant
DX: Z23 Encounter for immunization (principal)

== ENCOUNTER 2024-12-29 08:25 | Outpatient (REF) | payer OTHER, SELFPAY ==
[2024-12-29 10:59] LABS: MANUAL DIFF FLAG NO
[2024-12-29 11:08] LABS: Appearance Urine Clear; Color Urine Yellow; Glucose Urine UA Negative (Negative); Leukocyte Esterase Urine Negative (Negative); Nitrite Urine Negative (Negative); PH 5.5 (5.0-9.0); Specific Gravity - Urine >= 1.030 (1.005-1.025); UMIC TRIGGER UA YES; Urine Blood Small (1+) (Negative); Urine Ketones Negative (Negative); Urine Protein Negative (Neg-Trace)
[2024-12-29 11:09] LABS: Basophils Percent Auto 0.2 % (0-2); Eosinophils Percent Auto 0.1 % (0-4); Hematocrit 40.7 % (37.0-47.0); Hemoglobin 13.5 g/dl (12.0-16.0); Imm Gran Abs Auto 0.08 X10*3/uL (0.00-0.03); Imm Gran Pct Auto 0.8 % (0.0-0.4); Lymphocytes Absolute Auto 1.1 X10*3/uL (1.2-4.9); Lymphocytes Percent Auto 10.8 % (20-40); Mean Corpuscular HGB Conc 33.2 g/dl (31.0-35.0); Mean Corpuscular Hemoglobin 29.5 pg (27.0-33.0); Mean Corpuscular Volume 88.9 fL (80.0-98.0); Mean Platelet Volume 9.2 fL (9.4-12.3); Monocytes Absolute Auto 0.3 X10*3/uL (0.1-1.2); Monocytes Percent Auto 3.4 % (2-11); Neutrophils Absolute Auto 8.4 x10*3/uL (2.0-8.3); Neutrophils Percent Auto 84.7 % (45-73); Platelet Count 311 X10*3/uL (160-400); Red Blood Count 4.58 X10*6/uL (4.20-5.50); Red Cell Distribution Width 13.2 % (11.0-16.0)
[2024-12-29 11:14] LABS: Bacteria Urine None Seen (None Seen); Hyaline Casts Urine 0-2 /LPF (0-2); Squamous Epithelial Cell Urine 0-2 /HPF (0-2); WBC Urine 0-5 /HPF (0-5)
[2024-12-29 11:38] LABS: Rheumatoid Factor < 13.0 IU/mL (<15.0)
[2024-12-29 11:39] LABS: Alanine Aminotransferase 20 U/L (0-31); Albumin Level 4.1 g/dL (3.5-5.0); Alkaline Phosphatase 66 U/L (39-117); Anion Gap 11 (12-20); Aspartate Amino Transferase 19 U/L (5-31); Bilirubin Total 0.3 mg/dL (0.0-1.0); Blood Urea Nitrogen 12 mg/dL (9-16); C Reactive Protein 0.61 mg/dL (< or = 0.50); Calcium 9.5 mg/dL (8.4-10.2); Carbon Dioxide 23 mmol/L (22-29); Chloride 107 mmol/L (96-108); Estimated Glomerular Filt Rate > 60; Glucose Random 92 mg/dL (60-115); Potassium 4.3 mmol/L (3.3-5.1); Sodium 137 mmol/L (135-145)
[2024-12-29 11:43] LABS: Creatinine Urine 171.47 mg/dL; Protein/Creatinine Ratio, Ur 0.08 (<0.2); Total Protein Urine Random 14 mg/dL (<12)
[2024-12-29 11:47] LABS: Erythrocyte Sedimentation Rate 17 MM/HR (0-20)
[2024-12-29 11:59] LABS: HBS Num1 1.87 mIU/mL (0-7.99); HBc Num1 0.14 S/CO (0.00-0.79); HBsAGNum1 0.37 S/CO (0.00-0.99); Hepatitis A Antibody IgM 0.15 Index (0-0.79); Hepatitis B Core Antibody Nonreactive (Nonreactive); Hepatitis B Surface Antigen Negative (Negative); ~HepC Num1 0.08 S/CO (0.00-0.79); ~Hepatitis A Antibody IgM Nonreactive (Nonreactive); ~Hepatitis B Surface Antibody NONREACTIVE (Nonreactive); ~Hepatitis C Antibody Nonreactive (Nonreactive)
[2024-12-29 12:02] LABS: Ferritin 66 ng/mL (10-250)
[2024-12-30 19:58] LABS: Complement C3 183 mg/dL (83-193)
[2024-12-30 20:39] LABS: Anti DNA DS Antibody 1 IU/mL; Antibody to SS-A Antigen <1.0 NEG AI (<1.0 NEG); Antibody to SS-B Antigen <1.0 NEG AI (<1.0 NEG); Myeloperoxidase Antibody <1.0 AI; Proteinase 3 PR3 Antibodies <1.0 AI; SM/Ribonucleoprotein Ab <1.0 NEG AI (<1.0 NEG); Scleroderma 70 Antibody <1.0 NEG AI (<1.0 NEG); Smith Protein <1.0 NEG AI (<1.0 NEG)
[2024-12-31 22:08] LABS: TS Negative Control Passed; TS Panel A 0; TS Panel B 0; TS Positive Control Passed; TSpotTB Negative (Negative)
[2025-01-01 14:54] LABS: Immunoglobulin G Subclass 1 806 mg/dL (382-929); Immunoglobulin G Subclass 2 318 mg/dL (241-700); Immunoglobulin G Subclass 3 60 mg/dL (22-178); Immunoglobulin G Subclass 4 19.5 mg/dL (4-86); Immunoglobulin G Total 1334 mg/dL (600-1640)
[2025-01-03 09:49] LABS: IgA 383 mg/dL (47-310); IgG 1434 mg/dL (600-1640); IgM 164 mg/dL (50-300)
[2025-01-03 13:58] LABS: PEU-Protein Creat Ratio Rand 0.114 (0.024-0.184); PEU-Rand. Prot/Creat Ratio 114 mg/g creat (24-184); PEU-Random Ur. Gamma Globulin 0 %; PEU-Random Urine A1 Globulin 0 %; PEU-Random Urine A2 Globulin 0 %; PEU-Random Urine Albumin 100 %; PEU-Random Urine Beta Globulin 0 %; PEU-Random Urine Creatinine 167 mg/dL (20-275); PEU-Random Urine Protein 19 mg/dL (5-24)
[2025-01-03 14:54] LABS: Prot Elec - Albumin 4.2 g/dL (3.8-4.8); Prot Elec - Alpha1 0.4 g/dL (0.2-0.3); Prot Elec - Alpha2 0.7 g/dL (0.5-0.9); Prot Elec - Beta 1 0.5 g/dL (0.4-0.6); Prot Elec - Beta 2 0.5 g/dL (0.2-0.5); Prot Elec - Gamma 1.3 g/dL (0.8-1.7); Prot Elec - Total Protein 7.5 g/dL (6.1-8.1)
[2025-01-03 21:39] LABS: Beta-2 Glycoprotein IgA <2.0 U/mL (<20.0); Beta-2 Glycoprotein IgG <2.0 U/mL (<20.0); Beta-2 Glycoprotein IgM <2.0 U/mL (<20.0)
[2025-01-03 23:18] LABS: Anti-Centromere B Antibodies <1.0 NEG AI (<1.0 NEG)
[2025-01-04 07:33] LABS: Cardiolipin IgG Ab <2.0 GPL-U/mL; Cardiolipin IgM Ab <2.0 MPL-U/mL
[2025-01-04 21:48] LABS: DRVVT Confirmation Negative (Negative); PTT (LAC) Screen 36 sec (<=40)
[2025-01-05 15:08] LABS: Cyclic Citrullinated Peptide <16 UNITS
== END 2024-12-29 08:26 | disposition home or self-care (01) ==
LOC: HO.LAB 08:25
PROVIDERS: PCP Physician Assistant; Visit Provider Student in an Organized Health Care Education/Training Program
DX: M04.9 Autoinflammatory syndrome, unspecified (principal); G54.0 Brachial plexus disorders; R76.8 Other specified abnormal immunological findings in serum; I73.00 Raynaud's syndrome without gangrene; M25.50 Pain in unspecified joint; R22.9 Localized swelling, mass and lump, unspecified; Z86.718 Personal history of other venous thrombosis and embolism; Z79.01 Long term (current) use of anticoagulants; Z11.59 Encounter for screening for other viral diseases; Z11.1 Encounter for screening for respiratory tuberculosis; Z72.89 Other problems related to lifestyle
CPT/HCPCS: 80053; 81001; 82550; 82570; 82595; 82728; 82784; 83520; 83529; 84156; 84165; 84166; 85025; 85597; 85598; 85613; 85652; 85730; 86021; 86140; 86146; 86147; 86160; 86200; 86225; 86235; 86334; 86335; 86431; 86481; 86704; 86706; 86709; 86803; 87340; 99202

== ENCOUNTER → 2024-12-29 08:26 | Outpatient (AMB) | payer OTHER, SELFPAY ==
--- NOTE | 2024-12-29 08:32 | A.OFFVIS_ITS ---
Vital Signs 12/29/24 08:40 Height 5 ft Weight 189 lb 6.033 oz BMI 37.0 BP 134/100 H Blood Pressure Location Rt brachial Position Sitting Pulse 87 Pulse Source Pulse Oximeter Pulse Oximetry (%) 92 Oxygen Delivery Method Room Air Intake Visit Reasons: polyarthralgia / Swelling/ scheduled per MD req Intake Note: Patient presents for polyarthralgia and swelling. Left hand/wrist and both legs and feet are swollen. This has been happening for the past 2 years. For the past month the swelling and pain has gotten worst. I take Tylenol for pain but it doesn't work Allergies acetaminophen [Percocet] Allergy (Unknown, Verified 12/29/24 08:40) heart races oxycodone [OXYCODONE] Adverse Reaction (Unknown, Verified 12/29/24 08:40) PALPITATIONS Medication List - Last Reconciled 12/29/24 by Kortney Navarrete MD albuterol sulfate 90 mcg/actuation 1 inh inhalation QID 30 days apixaban (Eliquis) 5 mg PO BID 30 days blood pressure test kit-large As directed citalopram (Celexa) 20 mg PO DAILY 30 days lorazepam (Ativan) 0.5 mg PO DAILY PRN melatonin 10 mg PO BEDTIME PRN 60 days prednisone 5 mg PO DIRECTED 20 days HPI Comments Details: Patient is a 49-year-old female generalized anxiety disorder, history of thrombosis in left upper extremity on Eliquis, PEPITO here today for evaluation swelling and pain in her arms and legs in the setting of a positive GERMAN Complains of swelling to her legs and arms this associated with significant pain. Also notes bruising on random parts of her body Took 50mg of prednisone yesterday and today with no improvement in her swelling. at 30 Has a history of a ?missed miscarriage requiring DNC labor No preeclampsia Hysterectomy at 42 2/2 DUB Rashes - Gets rashes on the anterior chest associated with scaling and pruritus - Resolves on its own with aquafor Photosensitivity - feels like her skin campos - gets bad headaches Raynaud's - fingers change to purple AM stiffness that takes her >1-2 hours to get moving. Improves a bit during the day but is present throughout the day Denies alopecia, oral/nasal ulcers, sicca symptoms, lymphadenopathy, chest pain/shortness of breath, foamy urine, lower extremity edema, muscle weakness, Also denies history of seizure, CVA, psychosis, history of kidney problems, history of cytopenias No documented fever but notes at times would feel hot and then subsequently experience shivers [facility] Medical History Joint pain Numbness and tingling of right thumb Numbness and tingling of left thumb Heart palpitations Anxiety HTN (hypertension) Irritable bowel Asthma Fibromyalgia Pituitary tumor Pseudotumor Surgical History History of cholecystectomy History of biopsy History of delivery History of hysterectomy Family History Mother Diabetes Heart defect Thyroid disease Heart attack, Onset Age: 30 Mental health disorder Father Diabetes Hypertension Social History Housing: Apartment Alcohol intake: current Alcohol intake frequency: holidays/special occasions only Patient Tobacco Use Status: Former Tobacco user Tobacco use type: Cigarette e-Cigarette/Vaping Use: Never Used Second Hand Smoke Exposure: Yes service: No Current occupational status: disabled Cognitive needs: No Hearing needs: No Vision needs: Yes (Glasses) Review of Systems Const Details: Review of Systems Constitutional: Denies fever, chills, weight loss ENT: Denies vision changes, eye pain or eye redness, dental caries, dry mouth GI: Denies nausea, vomiting, diarrhea, abdominal pain, change in BM Pulm: Denies SOB, MEDELLIN, hemoptysis, wheezing Cards: Denies chest pain, palpitations Skin: Denies Raynaud's, rash, nail changes, photosensitivity, 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 Well appearing and in no apparent painful distress HEENT Conjunctiva and sclera clear. ?Pupils equal round and reactive to light. ?No lymphadenopathy. ? CHEST/RESPIRATORY SYSTEM Normal respiratory effort and able to speak in complete sentences. ?Clear to auscultation bilaterally. ?No crackles, rales, rhonchi, wheezes heard. CARDIAC SYSTEM Regular rate and rhythm. ?S1 and S2 heard no murmurs. ?Radial pulses intact bilaterally MSK Hands: ?There is diffuse swelling noted to the left upper extremity>right upper extremity. TTP of the 2nd-3rd MCPs on the left and right. No TTP of the PIPs or the DIPs Wrists: ?Full range of motion at the wrists without pain. ?No tenderness to palpation or synovitis noted to the wrists. Elbows: Full range of motion without pain. No tenderness, weakness, swelling, increased warmth or erythema. Shoulders: Full range of motion without pain. TTP of bilateral AC joints Hips: Full range of motion without pain. Hip bursa: No tenderness to palpation Knees: ?Full range of motion. ?No tenderness, swelling, increased warmth or erythema.?No effusion or crepitations Ankles: Full range of motion. ?No tenderness, swelling, increased warmth or erythema.? Feet: ?Negative squeeze test. ?No tenderness to palpation or swelling of the MTPs. Tender points:?No tenderness to palpation of the bilateral trapezius, supraspinatus, greater trochanters, anterior costochondral junctions, bilateral gluteal areas, bilateral suboccipital muscle insertions SKIN Skin intact without rashes. Results Reviewed Results Reviewed: Laboratory Tests 04/18/20 12/20/24 12/20/24 14:26 14:42 14:55 WBC 8.7 RBC 4.61 Hgb 13.7 Hct 41.3 Plt Count 351 ESR 16 Sodium 139 Potassium 4.1 Chloride 103 Carbon Dioxide 27 BUN 10 Creatinine 0.69 Total Bilirubin 0.4 AST 21 ALT 19 Alkaline Phosphatase 74 C-Reactive Protein 0.77 H Total Protein 8.1 H Albumin 4.3 Urine Color Yellow Urine Appearance Clear Urine pH 5.5 Ur Specific [place] 1.020 Urine Blood Small (1+) H GERMAN Screen POSITIVE A GERMAN Titer 1:40 H GERMAN Pattern Nuclear, Speckled A SS-A/Ro Antibody <1.0 SS-B/La Antibody <1.0 Sm (Ramirez) Antibody <1.0 SmRNP Antibodies <1.0 Scl-70 Scleroderma Ab <1.0 Double Strand DNA Ab 2 Complement C3 157 Complement C4 45 Assessment & Plan Assessment & Plan (1) GERMAN positive: Code(s): R76.8 - Other specified abnormal immunological findings in serum Category: Medical Plan: Patient is a 49-year-old female who presents for evaluation of left upper extremity fusiform swelling in the setting of a positive GERMAN. The differentials at this time are pretty broad and can be related to either an autoinflammatory syndrome or an autoimmune connective tissue disease. Included in this could be a simple thoracic outlet syndrome as well. I asked her to hold off on the prednisone since even though she had 2 days of 50 mg there has been no improvement in her symptoms and the prednisone we will unfortunately affect the results of the cytokine panel and the inflammatory markers. And now with her upper extremity clot which could be due to stasis in the left upper extremity or could be due to an underlying thrombotic disease such as APLS. Her GERMAN while positive it is 1:40 which is not clinically significant. An GERMAN of at least 1:80 would need to be met prior to meeting any classification for an autoimmune connective tissue disease. With that being said patient definitely requires further workup. To be honest I am inclined to want to give her anakinra because I think this may be a primary autoinflammatory syndrome and if this is primary autoinflammatory syndrome none of her autoimmune labs we will come up positive. However I will need confirmation of this. Plan - CBC, CMP, ESR, CRP - lupus labs: DsDNA UA, upc - autoimmune connective tissue disease labs: Sjogren's labs, anti Ramirez, anticentromere, scleroderma, CK - IgG4 labs: Immunoglobulins, IgG subclasses, serum immunofixation, serum protein electrophoresis, urine protein electrophoresis - thoracic outlet syndrome: Check CTA chest - vasculitis studies: ANCA vasculitides, cryoglobulin, RF, CCP - autoinflammatory labs: Ferritin, IL 2 receptor antibody, TNF alpha, IL 6, IL 1 beta, IL 4 - RTC 2 weeks Plan I spent 65 minutes reviewing the record and labs, taking a history, examining the patient, discussing the treatment plan, ordering labs and documenting in the medical record Orders: Orders Lupus Anticoagulant Panel Today M04.9 - Autoinflammatory syndrome, unspecified ANCA Vasculitides Today M04.9 - Autoinflammatory syndrome, unspecified Anti DNA DS Antibody Today M04.9 - Autoinflammatory syndrome, unspecified Complete Blood Count Auto Diff Today M04.9 - Autoinflammatory syndrome, unspecified Comprehensive Met. Panel Today M04.9 - Autoinflammatory syndrome, unspecified C Reactive Protein Today M04.9 - Autoinflammatory syndrome, unspecified Erythrocyte Sedimentation Rate Today M04.9 - Autoinflammatory syndrome, unspecified Immunoglobulins,IgG IgA IgM Today M04.9 - Autoinflammatory syndrome, unspecified Immunofixation Pnl, Serum Today M04.9 - Autoinflammatory syndrome, unspecified Protein Creatinine Ratio, Ur Today M04.9 - Autoinflammatory syndrome, unspecified Protein Electrophoresis,Ran Ur Today M04.9 - Autoinflammatory syndrome, unspecified Protein Electrophoresis, Serum Today M04.9 - Autoinflammatory syndrome, unspecified Hepatitis A,B,C Profile Today M04.9 - Autoinflammatory syndrome, unspecified UA w Microscopic Today M04.9 - Autoinflammatory syndrome, unspecified Cryoglobulin Today M04.9 - Autoinflammatory syndrome, unspecified Rheumatoid Factor Today M04.9 - Autoinflammatory syndrome, unspecified Cyclic Citrullinated Peptide Today M04.9 - Autoinflammatory syndrome, unspecified CT angio chest aorta Today G54.0 - Brachial plexus disorders, M04.9 - Autoinflammatory syndrome, unspecified Other Ref Test - Misc Today M04.9 - Autoinflammatory syndrome, unspecified Beta-2 Glycoprotein Antibody Today M04.9 - Autoinflammatory syndrome, unspecified Cardiolipin Antibodies Today M04.9 - Autoinflammatory syndrome, unspecified Anti-Centromere B Antibodies Today M04.9 - Autoinflammatory syndrome, unspecified Sm Sm/BOAT ENGINES INSTALLER Antibodies Today M04.9 - Autoinflammatory syndrome, unspecified Complement C3 Today M04.9 - Autoinflammatory syndrome, unspecified Complement C4 Today M04.9 - Autoinflammatory syndrome, unspecified Creatine Kinase Total Today M04.9 - Autoinflammatory syndrome, unspecified Ferritin Today M04.9 - Autoinflammatory syndrome, unspecified Immunofixation, Random Urine Today M04.9 - Autoinflammatory syndrome, unspecified Scleroderma 70 Antibody Today M04.9 - Autoinflammatory syndrome, unspecified Sjogren's Antibodies Today M04.9 - Autoinflammatory syndrome, unspecified T Spot TB Today M04.9 - Autoinflammatory syndrome, unspecified Immunoglobulin G Subclasses Today M04.9 - Autoinflammatory syndrome, unspecified Other Ref Test - Misc Today M04.9 - Autoinflammatory syndrome, unspecified Other Ref Test - Misc Today M04.9 - Autoinflammatory syndrome, unspecified Other Ref Test - Misc Today M04.9 - Autoinflammatory syndrome, unspecified Other Ref Test - Misc Today M04.9 - Autoinflammatory syndrome, unspecified Other Ref Test - Misc Today M04.9 - Autoinflammatory syndrome, unspecified Coding Level of Care Code New Pt Level 5 (41795) Complex EM visit Add On G2211 Diagnoses GERMAN positive R76.8
== END | disposition home or self-care (01) ==
PROVIDERS: PCP Physician Assistant; Visit Provider Student in an Organized Health Care Education/Training Program
CPT/HCPCS: 99205; G2211

== ENCOUNTER 2025-01-02 11:10 | Outpatient (REF) | payer OTHER, SELFPAY | END 2025-01-02 11:11 | disposition home or self-care (01) | LOC: HO.LAB 11:10 | PROVIDERS: PCP Physician Assistant; Visit Provider Student in an Organized Health Care Education/Training Program | DX: Z13.89 Encounter for screening for other disorder (principal) ==

== ENCOUNTER → 2025-01-03 09:42 | Outpatient (BNV) | payer OTHER, SELFPAY | PROVIDERS: Visit Provider Internal Medicine Medical Oncology | DX: I82.602 Acute embolism and thrombosis of unspecified veins of left upper extremity (principal) | CPT/HCPCS: 99204 ==

== ENCOUNTER → 2025-01-04 12:39 | Outpatient (REF) | payer OTHER, SELFPAY | LOC: HO.CARD 12:39 | DX: R00.2 Palpitations (principal) | CPT/HCPCS: 93242 ==

== ENCOUNTER → 2025-01-04 12:41 | Outpatient (BNV) | payer OTHER, SELFPAY | PROVIDERS: Visit Provider Internal Medicine | DX: I47.10 Supraventricular tachycardia, unspecified (principal) | CPT/HCPCS: 93244 ==

== ENCOUNTER 2025-01-11 09:56 | Outpatient (AMB) | payer OTHER, SELFPAY ==
--- NOTE | 2025-01-11 10:07 | A.OFFVIS_ITS ---
Vital Signs 01/11/25 10:12 Height 5 ft Weight 188 lb 14.978 oz BMI 36.9 BP 132/90 H Blood Pressure Location Rt brachial Position Sitting Pulse 85 Pulse Source Pulse Oximeter Pulse Oximetry (%) 98 Oxygen Delivery Method Room Air Intake Visit Reasons: polyarthralgia / Swelling Intake Note: Patient presents for Polyarthralgia. 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 At that time there was no clinical evidence to suggest an autoimmune connective tissue disease however the left arm swelling was very concerning so full workup was sent. Workup returned normal Patients have since that appointment follow up with Hematology with plans to do hypercoagulable workup Patient herself remains unchanged in terms of her symptoms Rheumatologic History: Complains of swelling to her legs and arms this associated with significant pain. Also notes bruising on random parts of her body Took 50mg of prednisone yesterday and today with no improvement in her swelling. at 30 Has a history of a ?missed miscarriage requiring DNC labor No preeclampsia Hysterectomy at 42 2/2 DUB Rashes - Gets rashes on the anterior chest associated with scaling and pruritus - Resolves on its own with aquafor Photosensitivity - feels like her skin campos - gets bad headaches Raynaud's - fingers change to purple AM stiffness that takes her >1-2 hours to get moving. Improves a bit during the day but is present throughout the day Denies alopecia, oral/nasal ulcers, sicca symptoms, lymphadenopathy, chest pain/shortness of breath, foamy urine, lower extremity edema, muscle weakness, Also denies history of seizure, CVA, psychosis, history of kidney problems, history of cytopenias No documented fever but notes at times would feel hot and then subsequently experience shivers Current Rheumatology Medication(s): [facility] Medical History Joint pain Numbness and tingling of right thumb Numbness and tingling of left thumb Heart palpitations Anxiety HTN (hypertension) Irritable bowel Asthma Fibromyalgia Pituitary tumor Pseudotumor Surgical History History of cholecystectomy History of biopsy History of delivery History of hysterectomy Family History Mother Diabetes Heart defect Thyroid disease Heart attack, Onset Age: 30 Mental health disorder Father Diabetes Hypertension Social History Household Members: Children and Other Housing: House Alcohol intake: current Alcohol intake frequency: holidays/special occasions only Patient Tobacco Use Status: Former Tobacco user Tobacco use type: Cigarette e-Cigarette/Vaping Use: Never Used Second Hand Smoke Exposure: Yes service: No Current occupational status: disabled Cognitive needs: No Hearing needs: No Vision needs: Yes (Glasses) Review of Systems Const Details: Review of Systems Constitutional: Denies fever, chills, weight loss ENT: Denies vision changes, eye pain or eye redness, dental caries, dry mouth GI: Denies nausea, vomiting, diarrhea, abdominal pain, change in BM Pulm: Denies SOB, MEDELLIN, hemoptysis, wheezing Cards: Denies chest pain, palpitations Skin: Denies Raynaud's, rash, nail changes, photosensitivity, 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 Well appearing and in no apparent painful distress HEENT Conjunctiva and sclera clear. ?Pupils equal round and reactive to light. ?No lymphadenopathy. ? CHEST/RESPIRATORY SYSTEM Normal respiratory effort and able to speak in complete sentences. ?Clear to auscultation bilaterally. ?No crackles, rales, rhonchi, wheezes heard. CARDIAC SYSTEM Regular rate and rhythm. ?S1 and S2 heard no murmurs. ?Radial pulses intact bilaterally MSK Hands: ?There is diffuse swelling noted to the left upper extremity>right upper extremity. TTP of the 2nd-3rd MCPs on the left and right. No TTP of the PIPs or the DIPs Wrists: ?Full range of motion at the wrists without pain. ?No tenderness to palpation or synovitis noted to the wrists. Elbows: Full range of motion without pain. No tenderness, weakness, swelling, increased warmth or erythema. Shoulders: Full range of motion without pain. TTP of bilateral AC joints Hips: Full range of motion without pain. Hip bursa: No tenderness to palpation Knees: ?Full range of motion. ?No tenderness, swelling, increased warmth or erythema.?No effusion or crepitations Ankles: Full range of motion. ?No tenderness, swelling, increased warmth or erythema.? Feet: ?Negative squeeze test. ?No tenderness to palpation or swelling of the MTPs. Tender points:?No tenderness to palpation of the bilateral trapezius, supraspinatus, greater trochanters, anterior costochondral junctions, bilateral gluteal areas, bilateral suboccipital muscle insertions SKIN Skin intact without rashes. Results Reviewed Results Reviewed: Laboratory Tests 12/20/24 12/29/24 14:55 10:55 WBC 10.0 RBC 4.58 Hgb 13.5 Hct 40.7 Plt Count 311 ESR 17 Sodium 137 Potassium 4.3 Chloride 107 Carbon Dioxide 23 BUN 12 Creatinine 0.65 AST 19 ALT 20 Alkaline Phosphatase 66 Total Creatine Kinase 60 C-Reactive Protein 0.77 H 0.61 H Albumin 4.1 PEP Interpretation SEE NOTE IgG Total 1434 IgG Subclass 1 806 IgG Subclass 2 318 IgG Subclass 3 60 IgG Subclass 4 19.5 IgA Total 383 H IgM 164 Rheumatoid Factor < 13.0 Cycl Citrul Peptide IgG <16 GERMAN Screen POSITIVE A GERMAN Titer 1:40 H Proteinase 3 (PR3) Ab <1.0 Myeloperoxidase Ab <1.0 SS-A/Ro Antibody <1.0 NEG SS-B/La Antibody <1.0 NEG Sm (Ramirez) Antibody <1.0 NEG SM/DRAFTER CONSTRUCTION IgG Antibody <1.0 NEG Scl-70 Scleroderma Ab <1.0 NEG Double Strand DNA Ab 1 Centromere B Antibody <1.0 NEG Beta-2-GPI IgG Ab <2.0 Beta-2-GPI IgA Ab <2.0 Beta-2-GPI IgM Ab <2.0 Anti-Cardiolipin IgG Ab <2.0 Anti-Cardiolipin IgM Ab <2.0 Complement C3 183 Complement C4 41 Il6 normal Il2R normal IFN normal Il4 normal Assessment & Plan Assessment & Plan (1) GERMAN positive: Code(s): R76.8 - Other specified abnormal immunological findings in serum Category: Medical Plan: Patient is a 49-year-old female who presents for evaluation of left upper extremity fusiform swelling in the setting of a positive GERMAN. So far all of the labs have been unremarkable. At this time I do not think that this is related to an underlying autoinflammatory or autoimmune connective tissue disease syndrome. We will await the CT scan to evaluate for thoracic outlet syndrome. Plan - Follow up CT chest - Continue Heme follow up and appreciate their input for hypercoagulable work up - RTC 1 month Plan I spent 25 minutes reviewing the record and labs, taking a history, examining the patient, discussing the treatment plan, ordering labs and documenting in the medical record Coding Level of Care Code Est Pt Level 3 (11611) Complex EM visit Add On G2211 Diagnoses GERMAN positive R76.8
[2025-01-11 10:12] VITALS: BP 132/90; PULSE 85; O2SAT 98; BMI 36.9
== END 2025-01-11 11:18 | disposition home or self-care (01) ==
PROVIDERS: PCP Physician Assistant; Visit Provider Student in an Organized Health Care Education/Training Program
DX: R76.8 Other specified abnormal immunological findings in serum (principal)
CPT/HCPCS: 99213; G2211

== ENCOUNTER → 2025-01-11 09:56 | Outpatient (BNVA) | payer OTHER, SELFPAY | PROVIDERS: PCP Physician Assistant; Visit Provider Student in an Organized Health Care Education/Training Program | DX: R76.8 Other specified abnormal immunological findings in serum (principal); M25.50 Pain in unspecified joint | CPT/HCPCS: 99212 ==

== ENCOUNTER 2025-01-13 11:14 | Outpatient (REF) | payer OTHER, SELFPAY ==
--- NOTE | ~2025-01-13 | US_ITS ---
CLINICAL HISTORY: R31.29 - Other microscopic hematuria, LOW BACK PAIN US Renal Comparison: None Findings: Right kidney normal size and echotexture, 12.3 cm length. Left kidney normal size and echotexture, 11.8 cm length. No collecting system dilatation of either kidney. Normal color Doppler. Urinary bladder is unremarkable. Prevoid volume 229 mL. Postvoid volume 9 mL. Bilateral ureteral jets are visualized. IMPRESSION: 1. Normal kidneys. This document has been electronically signed by: Eddie Christine MD on 01/16/2025 13:04:32
== END 2025-01-13 11:15 | disposition home or self-care (01) ==
LOC: HO.US 11:14
PROVIDERS: PCP Physician Assistant
DX: R31.29 Other microscopic hematuria (principal)
CPT/HCPCS: 76770

== ENCOUNTER → 2025-01-13 11:15 | Outpatient (BNV) | payer OTHER, SELFPAY | PROVIDERS: PCP Physician Assistant; Visit Provider Radiology Vascular & Interventional Radiology | DX: R31.29 Other microscopic hematuria (principal); M54.50 Low back pain, unspecified | CPT/HCPCS: 76770 ==

== ENCOUNTER 2025-01-16 14:59 | Emergency (ER) | payer OTHER, SELFPAY ==
[2025-01-16 15:59] VITALS: BP 143/84; PULSE 92; RESP 16; TEMP 36.4; O2SAT 96; BMI 36.5
== END 2025-01-16 20:47 | disposition left against medical advice (07) ==
PROVIDERS: Emergency Provider Internal Medicine; PCP Physician Assistant
DX: R04.0 Epistaxis (principal)
CPT/HCPCS: 99281; 99282

== ENCOUNTER 2025-01-25 10:44 | Outpatient (AMB) | payer OTHER, SELFPAY ==
[2025-01-25 10:52] VITALS: BP 148/92; PULSE 102; TEMP 36.4; O2SAT 98; BMI 36.5
--- NOTE | 2025-01-25 10:52 | A.OFFPC_ITS ---
Vital Signs 01/25/25 10:52 Height 5 ft Weight 187 lb 2 oz BMI 36.5 BP 148/92 H Blood Pressure Location Lt brachial Position Sitting Pulse 102 H Pulse Source Pulse Oximeter Temp 97.5 F Temp Source Temporal Artery Scan Pulse Oximetry (%) 98 Oxygen Delivery Method Room Air Intake Visit Reasons: f/u clot in arm Cash Applications Coordinator Required: No Accompanied by: Self / Same As Patient Allergies acetaminophen [Percocet] Allergy (Unknown, Verified 01/25/25 11:24) heart races oxycodone [OXYCODONE] Adverse Reaction (Unknown, Verified 01/25/25 11:24) PALPITATIONS Medication List - Last Reconciled 01/25/25 by Kenny Taylor PA-C albuterol sulfate 90 mcg/actuation 1 inh inhalation QID 30 days apixaban 10 mg (2 x 5 mg) PO BID 7 days apixaban (Eliquis) 5 mg PO BID 30 days blood pressure test kit-large As directed citalopram (Celexa) 20 mg PO DAILY 30 days melatonin 10 mg PO BEDTIME PRN 60 days prednisone 5 mg PO DIRECTED 20 days Tobacco use date assessed: 12/20/24 Dental Screening Dental Screen Date: 12/20/24 HPI f/u clot in arm HPI Details Patient is a 49-year-old female today for a follow-up visit. Patient has a past medical history significant for generalized anxiety disorder, family history of heart disease, heart palpitations, asthma. Major concern--> She reports persistent swelling and pain in her arm and legs, with difficulties in climbing stairs and walking due to the burning pain and significant swelling. These symptoms have been ongoing for approximately a year and a half. A few days ago, a nurse practitioner suggested the possibility of a blood clot, in fact her left upper extremity had a nonocclusive thrombus of the distal left basilic vein. Also the patient recently tested positive for Antinuclear Antibody (GERMAN). Past testing in 2019 also returned a positive GERMAN result, but subsequent tests in 2022 were negative until the recent positive finding. The patient experienced difficulty accessing care and reports significant pain and swelling, attributing a possible rheumatological issue. The patient has reported bruising without known trauma, which suggests potential coagulopathy that may contribute to her symptoms. Patient has followed up with both a car whacker and paid search marketing strategist though no significant findings noted. She is to continue on Eliquis 5 mg b.i.d. she started with a loading dose of 10 mg b.i.d. for 7 days. She is having some insurance issues with the change in the anticoagulation dose. She is due for CT of chest to evaluate for thoracic outlet syndrome. We discussed possibly getting her set up with a vascular surgeon to evaluate her upper extremity as well. PLAN: Will refer to vascular for evaluation of her arm swelling and pain. Will trial gabapentin for possible nerve related pain issue in her arm. .. Generalized anxiety disorder: You to her medical issues and pain she has been much more anxious and having panic attacks. She was on SSRI therapy in the past though has stopped this over the last few years. She is willing to restart daily anxiety medication and p.r.n. use of lorazepam for panic attack. .. Heart palpitations: Patient recently underwent a Holter monitor which did show few tubular ventricular couplets though no concerning arrhythmias. She is still interested in seeing a industrial millwright for further investigation. Will work with her on her anxiety which may be the cause of her heart palpitations. Laboratory Tests 04/05/20 12/20/24 12/29/24 13:10 14:55 10:55 RBC 4.61 dRVV Screen 52 H Creatinine 0.69 Hemoglobin A1c % 5.2 C-Reactive Protein 0.77 H Cholesterol 206 H TSH 3.30 IgA Total 383 H GERMAN Screen Positive H POSITIVE A [facility] Medical History Joint pain Numbness and tingling of right thumb Numbness and tingling of left thumb Heart palpitations Anxiety HTN (hypertension) Irritable bowel Asthma Fibromyalgia Pituitary tumor Pseudotumor Surgical History History of cholecystectomy History of biopsy History of delivery History of hysterectomy Family History Mother Diabetes Heart defect Thyroid disease Heart attack, Onset Age: 29 Mental health disorder Father Diabetes Hypertension Social History Household Members: Children and Other Housing: House Alcohol intake: current Alcohol intake frequency: holidays/special occasions only Patient Tobacco Use Status: Former Tobacco user Tobacco use type: Cigarette e-Cigarette/Vaping Use: Never Used Second Hand Smoke Exposure: Yes service: No Current occupational status: disabled Cognitive needs: No Hearing needs: No Vision needs: Yes (Glasses) Questionnaire Thrive Questionnaire Date Thrive assessed: 12/27/24 I am a: Patient What is your living situation today?: I have a steady place to live Within the past 12 months, did the food you bought not last and you didn't have the money to get more?: Often true Within the past 12 months, did you worry whether your food would run out before you got money to buy more?: Often true Do you have trouble paying for medicines?: No Do you have trouble getting transportation to medical appointments?: No Do you have trouble paying your heating and electricity bill?: Yes Do you have trouble taking care of your child, family member or friend?: No Do you have trouble with day-to-day activities such as bathing, preparing meals, shopping, managing finances, etc.?: Yes Are you currently unemployed and looking for a job?: No Are you interested in more education?: No Please select the resources that you would like help with: None Currently or been in a relationship where the following occur: I choose not to answer THRIVE Score: 3 JUDY-7 AMB Questionnaire JUDY-7 Date JUDY - 7 assessed: 12/27/24 Source: Developed by Drs. Delmar Walker, Corinna Mccoy, Ty Cuevas and colleagues, with an educational reyes from [employer]. Review of Systems Const Denies headache(s) Eyes Denies loss of vision ENT Denies vertigo, Denies dizziness, Denies headache(s) and Denies sore throat Card Denies chest pain, Denies leg edema and Denies lightheadedness Resp Denies cough, Denies hemoptysis and Denies wheezing GI Denies abdominal pain, Denies melena, Denies constipation, Denies diarrhea and Denies vomiting Denies urinary frequency, Denies dysuria and Denies urinary urgency Musc Denies arthralgias, Denies joint swelling, Denies numbness and Denies tingling Neuro Denies Abnormal speech present, Denies behavioral changes, Denies vertigo, Denies dizziness, Denies headache(s), Denies loss of vision, Denies memory loss, Denies numbness and Denies tingling Psych Denies anxiety, Denies behavioral changes, Denies depression, Denies memory loss and Denies panic attacks Herman/Lymph Denies easy bleeding and Denies easy bruising Aller/Immun Denies wheezing Physical exam (Primary Care) Vital Signs: Last Vital Signs Temp 97.5 F 01/25/25 10:52 Pulse 102 H 01/25/25 10:52 BP 148/92 H 01/25/25 10:52 Pulse Ox 98 01/25/25 10:52 Oxygen Delivery Method Room Air 01/25/25 10:52 BMI result Body Mass Index 36.5 Tobacco/Smoking Status: Tobacco use Status Tobacco use date assessed 12/20/24 01/25/25 10:52 Patient Tobacco Use Status Former Tobacco user 01/25/25 10:52 Tobacco use type Cigarette 01/25/25 10:52 e-Cigarette/Vaping Use Never Used 01/25/25 10:52 Thrive Assessment: Date of Thrive Assessment Date Thrive assessed 12/27/24 01/25/25 10:52 Currently or been in a relationship where the following occur: I choose not to answer Const General: healthy appearing, no acute distress, alert and awake Nutritional Appearance: well nourished Orientation/consciousness: oriented to person, oriented to place and oriented to time HENMT Ears: TM's normal bilaterally General nose exam: Normal nasal mucous membranes and turbinates present Eyes Conjunctivae: conjunctivae normal Sclerae: sclerae normal Pupils: Equal, round and reactive pupils present Neck Neck: Yes no lymphadenopathy and Yes no JVD Thyroid: Thyroid normal Carotids: no bruits Resp Effort & Inspection: normal respiratory effort and not tachypneic Auscultation: no crackles, no rales, no rhonchi and no wheezes Cardio Rate: regular rate Rhythm: regular rhythm Heart sounds: no murmurs and normal S1 and S2 GI Palpation (GI): Soft to palpation, nontender, no hepatomegaly and no splenomegaly Auscultation: normal bowel sounds Skin General skin exam: no rashes or lesions noted and dry skin Neuro General: oriented to person, oriented to place and oriented to time Cranial nerves: Yes Equal, round and reactive pupils present Speech: No Abnormal speech present Gait exam (Neuro): Normal gait present Motor exam (neuro): no tremor noted Extrem Other: LEFT UPPER EXTREMITY: APPEARS SLIGHTLY SWOLLEN, NEW CHANGE IN THE COLOR OF THE SKIN. TENDERNESS TO PALPATION PARTICULARLY OVER THE MEDIAL ELBOW AND TRICEPS AREA. Right upper extremity: full ROM Left upper extremity: full ROM Right lower extremity: full ROM; no edema Left lower extremity: full ROM; no edema Psych Mental Status: mental status grossly normal Speech and movement: Normal speech and movement present Affect: normal affect Attitude: cooperative Thought process: Normal thought process present Coding Level of Care Code Est Pt Level 4 (09575) Diagnoses Thrombosis of left upper extremity I82.602 Supraventricular dysrhythmia I49.9 JUDY (generalized anxiety disorder) F41.1 Assessment & Plan Assessment & Plan (1) Thrombosis of left upper extremity: Code(s): I82.602 - Acute embolism and thrombosis of unspecified veins of left upper extremity Category: Medical Plan: Patient continues on Eliquis 5 mg b.i.d.. Unclear etiology to patient's upper extremity thrombosis. She has been seeing Hematology and Rheumatology though no significant findings thus far. She is due for CT evaluation for thoracic outlet syndrome. (2) Supraventricular dysrhythmia: Code(s): I49.9 - Cardiac arrhythmia, unspecified Category: Medical Plan: Has noted some supraventricular tachycardia at times on her recent Holter monitor. She is interested in seeing a industrial millwright for further investigation. We did discuss this may be related to her anxiety thus will work on treating her anxiety. (3) JUDY (generalized anxiety disorder): Code(s): F41.1 - Generalized anxiety disorder Category: Medical Plan: We did discuss patient's mental health and signs and symptoms of an anxiety disorder. She is open to starting daily SSRI therapy and p.r.n. use of lo razepam for panic attacks. Orders: Referrals Vascular Surgery Referral I82.622 - Acute embolism and thrombosis of deep veins of left upper extremity Cardiology Referral I49.9 - Cardiac arrhythmia, unspecified Medications: New citalopram (Celexa) 10 mg PO DAILY 30 days 30 tabs 1RF F41.1 - Generalized anxiety disorder gabapentin 100 mg PO BID 30 days 60 caps 0RF M79.603 - Pain in arm, unspecified lorazepam 0.5 mg PO BID 5 days PRN 10 tabs 0RF anxiety F41.1 - Generalized anxiety disorder Refilled apixaban (Eliquis) 5 mg PO BID 30 days 60 tabs 3RF I82.602 - Acute embolism and thrombosis of unspecified veins of left upper extremity Discontinued citalopram (Celexa) Discontinued Reason: Doctor's Order 20 mg PO DAILY 30 days 30 tabs 3RF F41.1 - Generalized anxiety disorder apixaban Take 2 tablets twice a day x7 days. Discontinued Reason: Doctor's Order 10 mg (2 x 5 mg) PO BID 7 days 28 tabs 0RF I82.622 - Acute embolism and thrombosis of deep veins of left upper extremity
== END 2025-01-25 12:05 | disposition home or self-care (01) ==
PROVIDERS: PCP Physician Assistant; Visit Provider Physician Assistant
DX: I82.602 Acute embolism and thrombosis of unspecified veins of left upper extremity (principal); I49.9 Cardiac arrhythmia, unspecified; F41.1 Generalized anxiety disorder

== ENCOUNTER → 2025-01-25 10:44 | Outpatient (BNVA) | payer OTHER, SELFPAY | PROVIDERS: PCP Physician Assistant; Visit Provider Physician Assistant | DX: I82.602 Acute embolism and thrombosis of unspecified veins of left upper extremity (principal); I49.9 Cardiac arrhythmia, unspecified; F41.1 Generalized anxiety disorder | CPT/HCPCS: 99212 ==

== ENCOUNTER 2025-01-30 13:18 | Outpatient (REF) | payer OTHER, SELFPAY ==
[2025-01-30] MEDS: iohexoL 350 MG/ML 100 ML INFUS..BTL IV (15:58)
== END 2025-01-30 13:19 | disposition home or self-care (01) ==
LOC: HO.CT 13:18
PROVIDERS: PCP Physician Assistant; Visit Provider Student in an Organized Health Care Education/Training Program
DX: G54.0 Brachial plexus disorders (principal); M04.9 Autoinflammatory syndrome, unspecified
CPT/HCPCS: 71275; Q9967

== ENCOUNTER → 2025-01-30 13:20 | Outpatient (BNV) | payer OTHER, SELFPAY | PROVIDERS: PCP Physician Assistant; Visit Provider Nuclear Medicine | DX: R91.8 Other nonspecific abnormal finding of lung field (principal); G54.0 Brachial plexus disorders | CPT/HCPCS: 71275 ==

== ENCOUNTER 2025-02-01 08:33 | Outpatient (AMB) | payer OTHER, SELFPAY ==
--- NOTE | 2025-02-01 08:36 | A.OFFVIS_ITS ---
Vital Signs 02/01/25 08:42 Height 5 ft Weight 190 lb 0.615 oz BMI 37.1 BP 142/90 H Blood Pressure Location Rt brachial Position Sitting Pulse 89 Pulse Source Pulse Oximeter Pulse Oximetry (%) 98 Oxygen Delivery Method Room Air Intake Visit Reasons: polyarthralgia / Swelling Intake Note: Patient presents for Polyarthralgia and swelling. Allergies acetaminophen [Percocet] Allergy (Unknown, Verified 02/01/25 08:40) heart races oxycodone [OXYCODONE] Adverse Reaction (Unknown, Verified 02/01/25 08:40) PALPITATIONS HPI Comments Details: Patient is a 49-year-old female generalized anxiety disorder, history of thrombosis in left upper extremity on Eliquis, PEPITO here today for follow up of left arm swelling Interval History: Last seen 01/11/25 for the evaluation of left arm swelling in the setting of a positive GERMAN. At that time there was no clinical evidence to suggest an autoimmune connective tissue disease however the left arm swelling was very concerning so full workup was sent. Workup returned normal there was still some concern for potential thoracic and so CT chest with angio was ordered. Still awaiting the results Patients have since that appointment follow up with Hematology with plans to do hypercoagulable workup Patient herself remains unchanged in terms of her symptoms Rheumatologic History: Complains of swelling to her legs and arms this associated with significant pain. Also notes bruising on random parts of her body Took 50mg of prednisone yesterday and today with no improvement in her swelling. at 30 Has a history of a ?missed miscarriage requiring DNC labor No preeclampsia Hysterectomy at 42 2/2 DUB Rashes - Gets rashes on the anterior chest associated with scaling and pruritus - Resolves on its own with aquafor Photosensitivity - feels like her skin campos - gets bad headaches Raynaud's - fingers change to purple AM stiffness that takes her >1-2 hours to get moving. Improves a bit during the day but is present throughout the day Denies alopecia, oral/nasal ulcers, sicca symptoms, lymphadenopathy, chest pain/shortness of breath, foamy urine, lower extremity edema, muscle weakness, Also denies history of seizure, CVA, psychosis, history of kidney problems, history of cytopenias No documented fever but notes at times would feel hot and then subsequently experience shivers Current Rheumatology Medication(s): [facility] Medical History Joint pain Numbness and tingling of right thumb Numbness and tingling of left thumb Heart palpitations Anxiety HTN (hypertension) Irritable bowel Asthma Fibromyalgia Pituitary tumor Pseudotumor Surgical History History of cholecystectomy History of biopsy History of delivery History of hysterectomy Family History Mother Diabetes Heart defect Thyroid disease Heart attack, Onset Age: 30 Mental health disorder Father Diabetes Hypertension Social History Household Members: Children and Other Housing: House Alcohol intake: current Alcohol intake frequency: holidays/special occasions only Patient Tobacco Use Status: Former Tobacco user Tobacco use type: Cigarette e-Cigarette/Vaping Use: Never Used Second Hand Smoke Exposure: Yes service: No Current occupational status: disabled Cognitive needs: No Hearing needs: No Vision needs: Yes (Glasses) Review of Systems Const Details: Review of Systems Constitutional: Denies fever, chills, weight loss ENT: Denies vision changes, eye pain or eye redness, dental caries, dry mouth GI: Denies nausea, vomiting, diarrhea, abdominal pain, change in BM Pulm: Denies SOB, MEDELLIN, hemoptysis, wheezing Cards: Denies chest pain, palpitations Skin: Denies Raynaud's, rash, nail changes, photosensitivity, MEDICAID BILLING SPECIALIST: Denies headaches, weakness, paresthesias, recurrent falls MSK: as per HPI All other systems reviewed and are unremarkable except noted above Physical Exam Vital Signs: Last Vital Signs Pulse 89 02/01/25 08:42 BP 142/90 H 02/01/25 08:42 Pulse Ox 98 02/01/25 08:42 Oxygen Delivery Method Room Air 02/01/25 08:42 BMI result Body Mass Index 37.1 Vital signs reviewed Physical Examination CONSTITUITIONAL Patient alert and cooperative. Well appearing and in no apparent painful distress HEENT Conjunctiva and sclera clear. ?Pupils equal round and reactive to light. ?No lymphadenopathy. ? CHEST/RESPIRATORY SYSTEM Normal respiratory effort and able to speak in complete sentences. ?Clear to auscultation bilaterally. ?No crackles, rales, rhonchi, wheezes heard. CARDIAC SYSTEM Regular rate and rhythm. ?S1 and S2 heard no murmurs. ?Radial pulses intact bilaterally MSK Hands: ?There is diffuse swelling noted to the left upper extremity>right upper extremity. TTP of the 2nd-3rd MCPs on the left and right. No TTP of the PIPs or the DIPs Wrists: ?Full range of motion at the wrists without pain. ?No tenderness to palpation or synovitis noted to the wrists. Elbows: Full range of motion without pain. Tenderness to palpation of bilateral epicondyles with exacerbation of pain with wrist flexion and extension. Shoulders: Full range of motion without pain. TTP of bilateral AC joints Hips: Full range of motion without pain. Hip bursa: No tenderness to palpation Knees: ?Full range of motion. ?No tenderness, swelling, increased warmth or erythema.?No effusion or crepitations Ankles: Full range of motion. ?No tenderness, swelling, increased warmth or erythema.? Feet: ?Negative squeeze test. ?No tenderness to palpation or swelling of the MTPs. Tender points:?No tenderness to palpation of the bilateral trapezius, supraspinatus, greater trochanters, anterior costochondral junctions, bilateral gluteal areas, bilateral suboccipital muscle insertions SKIN Skin intact without rashes. Results Reviewed Results Reviewed: Laboratory Tests 12/20/24 12/29/24 14:55 10:55 WBC 10.0 RBC 4.58 Hgb 13.5 Hct 40.7 Plt Count 311 ESR 17 Sodium 137 Potassium 4.3 Chloride 107 Carbon Dioxide 23 BUN 12 Creatinine 0.65 AST 19 ALT 20 Alkaline Phosphatase 66 Total Creatine Kinase 60 C-Reactive Protein 0.77 H 0.61 H Total Protein 8.0 Immunology labs 12/20/24 12/29/24 14:55 10:55 IgG Total 1434 IgG Subclass 1 806 IgG Subclass 2 318 IgG Subclass 3 60 IgG Subclass 4 19.5 IgA Total 383 H IgM 164 TI Interpretation SEE NOTE Rheumatoid Factor < 13.0 Cycl Citrul Peptide IgG <16 GERMAN Screen POSITIVE A GERMAN Titer 1:40 H Proteinase 3 (PR3) Ab <1.0 Myeloperoxidase Ab <1.0 SS-A/Ro Antibody <1.0 NEG SS-B/La Antibody <1.0 NEG Sm (Ramirez) Antibody <1.0 NEG SM/DIRECTOR OF CRITICAL CARE IgG Antibody <1.0 NEG Scl-70 Scleroderma Ab <1.0 NEG Double Strand DNA Ab 1 Centromere B Antibody <1.0 NEG Beta-2-GPI IgG Ab <2.0 Beta-2-GPI IgA Ab <2.0 Beta-2-GPI IgM Ab <2.0 Anti-Cardiolipin IgG Ab <2.0 Anti-Cardiolipin IgM Ab <2.0 Complement C3 183 Complement C4 41 Laboratory Tests 12/29/24 10:55 INTERLEUKIN 6 (IL 6), SERUM: 3.81 pg/mL IL-2RALPHA (CD25),SOLUBLE: 1631 pg/mL INTERFERON ALPHA: <3 IU/mL IL 4 (SERUM): <0.1 pg/mL Assessment & Plan Assessment & Plan (1) Left arm swelling: Code(s): M79.89 - Other specified soft tissue disorders Category: Medical Plan: #Left Arm swelling with thrombus Patient is a 49-year-old female who presents for evaluation of left upper extremity fusiform swelling in the setting of a positive GERMAN. So far all of the labs have been unremarkable. At this time I do not think that this is related to an underlying autoinflammatory or autoimmune connective tissue disease syndrome. We will await the CT scan to evaluate for thoracic outlet syndrome. Patient had CT scan done 01/30/2025. Contacted Radiology and awaiting read Patient also has current right medial and lateral epicondylitis likely due to preference in the right hand because of the left arm swelling. Advised conservative measures such as ice and stretching. Plan - Follow up CT chest - Will call patient with the result - Continue Heme follow up and appreciate their input for hypercoagulable work up (2) GERMAN positive: Code(s): R76.8 - Other specified abnormal immunological findings in serum Category: Medical Plan: #Positive GERMAN The presence of antinuclear antibodies (GERMAN) is mainly associated with connective tissue diseases (CTD). ?However, their presence is found in healthy people especially in women and patients >65. ?In healthy individuals, the frequency of GERMAN has been shown to be 31.7% of individuals at 1:40 serum dilution, 13.3% at 1:80, 5.0% at 1:160, and 3.3% at 1:320 (2). Some drugs and xenobiotics are also important for the development of GERMAN (hydralazine, hydrochlorothiazide, minocycline, terbinafine, ciprofloxacin, furosemide, omeprazole). Moreover, the deficiency of vitamin D in the body of patients correlates with occurrence of these antibodies (1). At this time there is low suspicion for a connective tissue disease. ? 1. Sanju?navarro Abreu, Pravin Carter, Joon Macias. Antinuclear antibodies in healthy people and non-rheumatic diseases - diagnostic and clinical implications. Reumatologia. 2018;56(4):243-248. doi: 10.5114/reum.2018.11775. Epub 2017Jul 23. PMID: [id number]; PMCID: [id number]. 2. Dinesh EM, Liana TE, Yanique JS, Bib B, Bhargavi R, Katya MJ, Hermann T, Kaya JA, Mindy JR, Boni RG, Suyapa RN, Logan JS, Sandra NF, Derian RJ, Rox Y, Tone A, Krishna MR, Emma CLEANING. Range of antinuclear antibodies in healthy individuals. Arthritis Rheum. 1996;40(9):1601-11. doi: 10.1002/art.7326163962. PMID: 2665204. Plan I spent 35 minutes reviewing the record and labs, taking a history, examining the patient, discussing the treatment plan, contacting radiology to read the CT ordering labs and documenting in the medical record Coding Level of Care Code Est Pt Level 4 (98641) Complex EM visit Add On G2211 Diagnoses Left arm swelling M79.89 GERMAN positive R76.8
[2025-02-01 08:42] VITALS: BP 142/90; PULSE 89; O2SAT 98; BMI 37.1
== END 2025-02-01 09:48 | disposition home or self-care (01) ==
LOC: HO.RHE 08:34
PROVIDERS: PCP Physician Assistant; Visit Provider Student in an Organized Health Care Education/Training Program
DX: M79.89 Other specified soft tissue disorders (principal); R76.8 Other specified abnormal immunological findings in serum
CPT/HCPCS: 99214; G2211

== ENCOUNTER → 2025-02-01 08:33 | Outpatient (BNVA) | payer OTHER, SELFPAY | PROVIDERS: PCP Physician Assistant; Visit Provider Student in an Organized Health Care Education/Training Program | DX: M79.89 Other specified soft tissue disorders (principal); R76.8 Other specified abnormal immunological findings in serum | CPT/HCPCS: 99212 ==

== ENCOUNTER 2025-02-14 15:19 | Outpatient (AMB) | payer OTHER, SELFPAY ==
--- NOTE | 2025-02-14 15:26 | MHC.OFFVIS ---
Intake Visit Reasons: [facility] referral for acute embolism and thrombosis Intake Note: New patient presents for acute embolism and thrombosis. Patient states her left arm is discolored and painful. She states she gets fatigued easily. She also has arm swelling. She is on Eliquis. Patient states she has seen rheum and hematology and still does not have answers. She gets her veins are big and painful. A mass was found on her lung after a CT scan. Patient has chest pains ,feels like shes choking. Accompanied by: Daughter Allergies acetaminophen [Percocet] Allergy (Unknown, Verified 02/14/25 15:33) heart races oxycodone [OXYCODONE] Adverse Reaction (Unknown, Verified 02/14/25 15:33) PALPITATIONS HPI HPI [facility] referral for acute embolism and thrombosis: Details: Very complex 41-year-old female presents for evaluation regarding generalized body swelling. In particular it is the left upper extremity where she had a venous ultrasound which demonstrated a nonocclusive thrombus in the left distal basilic vein. She reports no IVs blood draws her previous central lines. She has been having generalized swelling issues for the last year or 2 it has become quite concerned about this. She also has a diagnosis of a small pulmonary nodule as well. She now presents to us for general vascular evaluation [facility] Medical History Joint pain Numbness and tingling of right thumb Numbness and tingling of left thumb Heart palpitations Anxiety HTN (hypertension) Irritable bowel Asthma Fibromyalgia Pituitary tumor Pseudotumor Surgical History History of cholecystectomy History of biopsy History of delivery History of hysterectomy Family History Mother Diabetes Heart defect Thyroid disease Heart attack, Onset Age: 29 Mental health disorder Father Diabetes Hypertension Social History Household Members: Children and Other Housing: House Alcohol intake: current Alcohol intake frequency: holidays/special occasions only Patient Tobacco Use Status: Former Tobacco user Tobacco use type: Cigarette e-Cigarette/Vaping Use: Never Used Second Hand Smoke Exposure: Yes service: No Current occupational status: disabled Cognitive needs: No Hearing needs: No Vision needs: Yes (Glasses) Review of Systems Const All systems reviewed & are unremarkable except as noted in HPI and below Reports no additional complaints ENT Reports Normal hearing present Card Denies chest pain, Denies chest pain at rest, Denies chest pain with activity and Denies pedal edema Resp Denies cough GI Denies abdominal pain Musc Denies abnormal gait, Denies muscle cramps and Denies radiating pain into limb Skin/Breast Denies skin ulcer and Denies wounds Neuro Reports Normal hearing present and Denies abnormal gait Psych Reports no additional complaints Physical Exam Const General: cooperative, healthy appearing and comfortable Orientation/consciousness: oriented to person, oriented to place and oriented to time HEENT Head: Yes normal to inspection Neck Neck: Yes normal visual inspection Carotids: no bruits Chest Chest palpation & inspection: normal inspection of the chest Resp Effort & Inspection: normal respiratory effort and able to speak in complete sentences Auscultation: clear to auscultation bilaterally, no crackles, no rales, no rhonchi and no wheezes Cardio Rate: regular rate Rhythm: regular rhythm Heart sounds: S1 normal heart sound present and S2 normal heart sound present Bruits: no carotid bruits Peripheral pulses: Peripheral pulses 2+ throughout GI Inspection: Yes normal to inspection Skin Wounds: no wounds Hair: normal Neuro General: oriented to person, oriented to place and oriented to time Cranial nerves: Yes CN's II-XII intact bilaterally and Yes Normal hearing present Cognition (Neuro): normal cognition Motor exam (neuro): 5/5 motor strength present throughout Extrem Other: venous exam: +1 edema which is generalized edema. Palpable brachial radial ulnar pulses General: No clubbing, No cyanosis and No edema Psych Appearance: grossly normal Mental Status: mental status grossly normal Speech and movement: Normal speech and movement present Assessment & Plan Assessment & Plan (1) Thrombosis of left upper extremity: Code(s): I82.602 - Acute embolism and thrombosis of unspecified veins of left upper extremity Category: Medical Plan: In short patient has left upper extremity venous thrombosis of the basilic vein. This is not a deep vein and more of a superficial vein. At the current time she is being anticoagulated for this. Unclear what her generalized swelling of from. It does not appear to be vascular in nature. I have taken the liberty of ordering repeat venous testing of the left upper extremity. She will follow up with us after testing. At that time we can make a better determination of the need of anticoagulation. Thank you for allowing us to assist in her care. If there are any questions or concerns please do not hesitate to contact us Orders: Orders US venous duplex UE LT 1 Week I82.602 - Acute embolism and thrombosis of unspecified veins of left upper extremity Coding Level of Care Code New Pt Level 4 (60095) Diagnoses Thrombosis of left upper extremity I82.602
== END 2025-02-14 15:46 | disposition home or self-care (01) ==
LOC: HO.HVS 15:19
PROVIDERS: PCP Physician Assistant; Visit Provider Surgery Vascular Surgery
DX: I82.602 Acute embolism and thrombosis of unspecified veins of left upper extremity (principal)
CPT/HCPCS: 99204

== ENCOUNTER → 2025-02-14 15:19 | Outpatient (BNVA) | payer OTHER, SELFPAY | PROVIDERS: PCP Physician Assistant; Visit Provider Surgery Vascular Surgery | DX: I82.602 Acute embolism and thrombosis of unspecified veins of left upper extremity (principal) | CPT/HCPCS: 99202 ==

== ENCOUNTER 2025-03-09 15:10 | Observation (INO) | payer OTHER, SELFPAY ==
[2025-03-09] VITALS (7 sets, daily range): BP systolic 128–155; BP diastolic 67–82; PULSE 63–75; RESP 15–20; TEMP 36.6–36.8; O2SAT 96–99; BMI 36.9; BMI 35.2
--- NOTE | ~2025-03-09 | XR_ITS ---
EXAMINATION: XR CHEST 1 VIEW HISTORY: cp COMPARISON: Comparison is made with the prior examination dated 02/03/2023. FINDINGS: A single AP portable view of the chest performed at 3:47 PM is submitted. The lungs are expanded and clear. There is no pleural effusion, pneumothorax, or pulmonary vascular congestion. The heart is normal in size. The bones are intact. XR/XR chest 1V IMPRESSION: No acute cardiopulmonary abnormality. Electronically signed by: Delmar Solis MD 03/09/2025 03:54 PM EDT
--- NOTE | ~2025-03-09 | CT_ITS ---
CLINICAL HISTORY: left sided weakness CT Head without contrast. CT angiography head and neck with contrast. 3D Postprocessing. Comparison: MR/SR - MR HEAD/BRAIN WO/W CON - 02/12/24 15:12 EDT Findings: HEAD CT: No intra-axial mass, midline shift, hydrocephalus, or acute hemorrhage. No significant atrophy-like change or white matter disease. The visualized paranasal sinuses and mastoid air cells are normal. The orbits are unremarkable. No skull fracture. HEAD AND NECK CTA: Aortic arch and cervical great vessels are patent. Intracranial arteries are patent. No aneurysm, dissection, or occlusion. No abnormal intracranial enhancement. The visualized thyroid gland is unremarkable. No cervical mass or fluid collection. Lung apices clear. No acute fracture. Degenerative changes of the spine. IMPRESSION: 1. Unremarkable head CT. 2. Patent head and neck CTA. This document has been electronically signed by: Fabio Torres MD on 03/09/2025 18:24:47
--- NOTE | ~2025-03-09 | MR_ITS ---
EXAMINATION: MR BRAIN WITHOUT CONTRAST CLINICAL INFORMATION: TIA versus complex migraine. COMPARISON: February 10, 2024. Correlated to CT angiogram dated March 09, 2025. TECHNIQUE: MRI of the brain was obtained using routine sequences without contrast. FINDINGS: No restricted diffusion. No acute intracranial hemorrhage, mass effect, midline shift, hydrocephalus or herniation. [place]-white matter differentiation is normal. Flow-void signal within the main cerebral vessels is normal. Sellar/suprasellar region is normal. Craniocervical junction is intact and normal. No air-fluid levels or mucosal thickening in the paranasal sinuses. No signal abnormality in the mastoid air cells. MR/MR head/brain wo con IMPRESSION: No acute or structural brain abnormality. Negative exam. Electronically signed by: Anthony Price MD 03/10/2025 11:15 AM EDT
--- NOTE | 2025-03-09 15:35 | ECG_ITS ---
Test Reason : CP Blood Pressure : */* mmHG Vent. Rate : 76 BPM Atrial Rate : 76 BPM P-R Int : 162 ms QRS Dur : 76 ms QT Int : 416 ms P-R-T Axes : 16 0 15 degrees QTcB Int : 468 ms Normal sinus rhythm Minimal voltage criteria for LVH, may be normal variant ( R in aVL ) Borderline ECG When compared with ECG of 03-Feb-2023 13:06, Nonspecific T wave abnormality no longer evident in Lateral leads Referred By: Dk Quintanilla Electronically Signed By: JOY SHELBY MD
[2025-03-09 15:47] LABS: MANUAL DIFF FLAG NO
[2025-03-09 15:50] LABS: Basophils Percent Auto 0.3 % (0-2); Eosinophils Absolute Auto 0.1 X10*3/uL (0.0-0.4); Eosinophils Percent Auto 0.6 % (0-4); Hematocrit 39.5 % (37.0-47.0); Hemoglobin 13.3 g/dl (12.0-16.0); Imm Gran Abs Auto 0.03 X10*3/uL (0.00-0.03); Imm Gran Pct Auto 0.4 % (0.0-0.4); Lymphocytes Absolute Auto 1.9 X10*3/uL (1.2-4.9); Lymphocytes Percent Auto 24.5 % (20-40); Mean Corpuscular HGB Conc 33.7 g/dl (31.0-35.0); Mean Corpuscular Hemoglobin 29.5 pg (27.0-33.0); Mean Corpuscular Volume 87.6 fL (80.0-98.0); Mean Platelet Volume 9.2 fL (9.4-12.3); Monocytes Absolute Auto 0.3 X10*3/uL (0.1-1.2); Monocytes Percent Auto 4.4 % (2-11); Neutrophils Absolute Auto 5.4 x10*3/uL (2.0-8.3); Neutrophils Percent Auto 69.8 % (45-73); Platelet Count 357 X10*3/uL (160-400); Red Blood Count 4.51 X10*6/uL (4.20-5.50); Red Cell Distribution Width 13.1 % (11.0-16.0); White Blood Count 7.8 X10*3/uL (4.8-10.8)
[2025-03-09 16:09] LABS: B Type Natriuretic Peptide 40 pg/mL (<100)
--- NOTE | 2025-03-09 16:10 | PC.NURSE ---
Pt biba from home for Left sided weakness x3 days- pt states the weakness has progressively gotten worse over the last few days. Per pt daughter, she noticed a slight facial droop to left side of her face this morning. Also endorsing R sided neck/head pain. Pt states she has a hx of a brain tumor and afib, was recently put on Eliquis, and a DVT to Left arm. Upon arrival, pt speaking in full sentences/answering appropriately, slow to respond to questions, slight facial droop to left side with smile, unequal strength bilaterally, left side weaker than right side. MD notified of pt assessment, MD Quintanilla at bedside to evaluate patient. A/ox3, respirations even and unlabored, no increased wob/sob noted, nsr on director plans, HR- 60s. 20g IV placed R forearm. EKG and labs obtained and sent to lab. Significant other at bedside, call welch within reach, all needs met at this time.
[2025-03-09 16:12] LABS: Alanine Aminotransferase 18 U/L (0-31); Alkaline Phosphatase 76 U/L (39-117); Anion Gap 12 (12-20); Aspartate Amino Transferase 21 U/L (5-31); Bilirubin Direct 0.1 mg/dL (0.0-0.5); Bilirubin Total 0.4 mg/dL (0.0-1.0); Blood Urea Nitrogen 10 mg/dL (9-16); Calcium 9.1 mg/dL (8.4-10.2); Carbon Dioxide 25 mmol/L (22-29); Chloride 106 mmol/L (96-108); Creatinine Clr Calc Pharmacy 95.5; Estimated Glomerular Filt Rate > 60; Glucose Random 98 mg/dL (60-115); Lipase 28 U/L (8-78); Potassium 3.6 mmol/L (3.3-5.1); Sodium 139 mmol/L (135-145); Total Protein 7.4 g/dL (6.5-8.0); Troponin-I High Sensitivity < 2.7 ng/L (<3.5-17.0)
--- NOTE | 2025-03-09 16:27 | ED.GENADULT ---
HPI - General Adult General Chief complaint: General Medical Stated complaint: R SIDE WEAK X3D,CP/DIZZY TODAY,+ELIQUIS PER EMS Time Seen by Provider: 03/09/25 15:34 Source: patient and EMS Mode of arrival: EMS Limitations: no limitations History of Present Illness ED Provider: DR. Quintanilla HPI narrative: 49-year-old female with history of anxiety, hypertension, asthma, fibromyalgia, pituitary tumor, DVT on Eliquis, pseudotumor cerebri. Presented for evaluation of multiple symptoms, with 3 days worsening of chest pain that is localized to the mid chest area, with no radiation, no shortness of breath. No recent travel, no lower extremities swelling or tenderness , and left side weakness for the past 3 days. Patient noticed very mild asymmetric facial weakness on the left side, no speech abnormality or change, able to swallow normally. Patient appears anxious and tearful during the interview. Related Data Previous Rx's ?Medication ?Instructions ?Recorded blood pressure test kit-large #1 ea 01/13/22 albuterol sulfate 90 mcg/actuation 1 inh inhalation QID 30 days #8.5 12/20/24 aerosol inhaler grams melatonin 10 mg capsule 10 mg PO BEDTIME PRN sleep 60 days 12/20/24 #60 caps prednisone 5 mg tablet 5 mg PO DIRECTED 20 days #60 12/27/24 tabs apixaban 5 mg tablet (Eliquis) 5 mg PO BID 30 days #60 tabs 01/25/25 lorazepam 0.5 mg tablet 0.5 mg PO BID PRN anxiety 5 days 01/25/25 #10 tabs sertraline 25 mg tablet 25 mg PO DAILY 30 days #30 tabs 02/16/25 gabapentin 100 mg capsule 100 mg PO BID 30 days #60 caps 03/02/25 Allergies Allergy/AdvReac Type Severity Reaction Status Date / Time acetaminophen [Percocet] Allergy Unknown heart races Verified 03/09/25 15:26 citalopram [From Celexa] AdvReac Intermediate Nausea Verified 03/09/25 15:26 oxycodone [OXYCODONE] AdvReac Unknown PALPITATION Verified 03/09/25 15:26 S Review of Systems Review of Systems: All other systems are reviewed and are negative Constitutional: Reports as per HPI and Reports no additional constitutional complaints Eyes: Reports as per HPI and Reports no additional eye complaints Reports system reviewed and no additional complaints, except as documented Cardiovascular: Reports as per HPI and Reports no additional cardiovascular complaints Respiratory: Reports as per HPI and Reports no additional respiratory complaints Gastrointestinal: Reports as per HPI and Reports no additional gastrointestinal complaints Genitourinary: Reports no additional female genitourinary complaints Musculoskeletal: Reports no additional musculoskeletal complaints Skin/Breast: Reports system reviewed and no additional complaints, except as docu Psychiatric: Reports no additional psychiatric complaints Endocrine: Reports no additional endocrine complaints Hematologic/Lymphatic: Reports no additional hematologic/lymphatic complaints Allergic/Immunologic: Reports no additional allergic/immunologic complaints Reports system reviewed and no additional complaints, except as documented and Reports Abnormal speech present [facility] Past Medical History Medical History (Updated 03/09/25 @ 20:55 by Dk Quintanilla MD) Joint pain Numbness and tingling of right thumb Numbness and tingling of left thumb Heart palpitations Anxiety HTN (hypertension) Irritable bowel Asthma Fibromyalgia Pituitary tumor Pseudotumor Surgical History History of cholecystectomy History of biopsy History of delivery History of hysterectomy Family History Family History Mother Diabetes Heart defect Thyroid disease Heart attack, Onset Age: 29 Mental health disorder Father Diabetes Hypertension Social History Social History Household Members: Children and Other Housing: House Alcohol intake: current Alcohol intake frequency: holidays/special occasions only Patient Tobacco Use Status: Former Tobacco user Tobacco use type: Cigarette Smoked in Last 30 Days: No e-Cigarette/Vaping Use: Never Used Second Hand Smoke Exposure: Yes Use of substances other than those prescribed or required for medical reasons: No Advance Directives: No Advance Directives Information Provided: No Do you have a plan to hurt others: No Plan Patient : No service: No Current occupational status: disabled Cognitive needs: No Hearing needs: No Vision needs: Yes (Glasses) Physical Exam ED Vital Signs: Vital Signs - 24 hr 03/09/25 15:24 03/09/25 17:44 03/09/25 18:07 Temperature 98.0 F 98.2 F Pulse Rate 73 72 Respiratory Rate 15 18 20 Blood Pressure 131/67 137/78 Pulse Oximetry 98 96 Oxygen Delivery Method Room Air Room Air 03/09/25 18:11 03/09/25 19:26 Temperature 98.0 F 98.3 F Pulse Rate 75 63 Respiratory Rate 20 20 Blood Pressure 136/81 128/74 Pulse Oximetry 99 98 Oxygen Delivery Method Room Air Room Air BMI result Body Mass Index 36.9 Vital signs have been reviewed and appear to be correct. Blood pressure elevated. Heart rate normal. Respiratory rate normal. Temperature normal. Oxygen saturation normal. Appearance: Alert. Oriented X3. No acute distress. Head: Normal external exam. Normocephalic. Atraumatic. No Singh signs noted. No raccoon eyes noted Eyes: PERRLA. EOMI. Conjunctiva and sclera normal. Eyelids normal. ENT: TM's Normal. Pharynx normal. Uvula midline. Moist mucous membranes. No trismus noted. No drooling noted. No muffled voice noted. Neck: Normal inspection. Neck supple. FROM. No adenopathy. Thyroid Normal. No meningeal signs. No neck mass noted. CVS: Normal heart rate and rhythm. Heart sound normal. No murmurs noted. Pulses normal throughout. Respiratory: No respiratory distress. Painless inspiration. Breath sounds normal. No wheezes/rales/rhonchi noted. Chest nontender. No accessory muscle usage noted or decreased air movement noted. Abdomen: Soft and nontender. Bowel sounds normal in all 4 quadrants. No distention noted. No organomegaly noted. No visible injury noted. Back: No CVA tenderness. Full range of motion noted. Skin: Skin warm and dry. Normal skin color. Normal skin turgor. No rashes/lesions/lacerations noted. Extremities: No lower extremity edema. Extremities exhibit normal range of motion. Extremities nontender. Neuro: Oriented X 3. Cranial nerve exam: II-XII are grossly intact Mild left-sided weakness, No sensory deficit. Reflexes normal. NIH Stroke Scale Time: 16:43 Level of Consciousness: Alert Level of Consciousness Questions: Answers both questions correctly Level of Consciousness Commands: Performs both tasks correctly Best Gaze: Normal Visual: No visual loss Facial Palsy: Minor paralyis Motor Arm (Right): No drift Motor Arm (Left): Drift Motor Leg (Right): No drift Motor Leg (Left): No drift Limb Ataxia: Absent Sensory: Normal Best Language: No aphasia Dysarthia: Normal Extinction and Inattention: No abnormality Score: 2 Course Reevaluation(s) Reevaluation #1: 49-year-old female with 3 days symptoms of chest pain and left-sided weakness, NIH score of 2 patient is on Eliquis for an old DVT. Time: 20:56 Medications Administered Discontinued Medications Generic Name Dose Route Start Last Admin Trade Name Freq PRN Reason Stop Dose Admin Iohexol 100 ml 03/09/25 17:21 03/09/25 17:21 Iohexol 350 Mg/Ml 100 Ml Infus..Btl IV 03/09/25 17:22 70 ml ONCE ONE Administration Morphine Sulfate 1 mg 03/09/25 17:57 03/09/25 18:07 Morphine Sulfate 2 Mg/Ml Cartridge IVPUSH 03/09/25 17:58 1 mg ONCE ONE Administration Protocol Ondansetron HCl 4 mg 03/09/25 17:57 03/09/25 18:07 Ondansetron Hcl 4 Mg/2 Ml Vial IVPUSH 03/09/25 17:58 4 mg ONCE ONE Administration Medical Decision Making Differential Diagnosis Differential Diagnoses: The differential diagnosis associated with the presentation includes (Hemorrhagic CVA, ischemic CVA, ACS, electrolyte derangement, severe anemia, anxiety.) Admission/Observation Consideration of admission/observation: Escalation of care including admission/observation considered Consult Healthcare Provider Management of the patient was discussed with: Hospitalist (Dr. Fong) Lab Data MDM Lab Attestation statement: I reviewed the patient's lab results. 03/09/25 15:43 03/09/25 15:43 Labs: Lab Results 03/09/25 03/09/25 Range/Units 15:43 17:52 WBC 7.8 (4.8-10.8) X10*3/uL RBC 4.51 (4.20-5.50) X10*6/uL Hgb 13.3 (12.0-16.0) g/dl Hct 39.5 (37.0-47.0) % MCV 87.6 (80.0-98.0) fL MCH 29.5 (27.0-33.0) pg MCHC 33.7 (31.0-35.0) g/dl RDW 13.1 (11.0-16.0) % Plt Count 357 (160-400) X10*3/uL MPV 9.2 L (9.4-12.3) fL Immature Gran % (Auto) 0.4 (0.0-0.4) % Neut % (Auto) 69.8 (45-73) % Lymph % (Auto) 24.5 (20-40) % Stanislaus % (Auto) 4.4 (2-11) % Eos % (Auto) 0.6 (0-4) % Baso % (Auto) 0.3 (0-2) % Lymph # (Auto) 1.9 (1.2-4.9) X10*3/uL Stan[place]aus # (Auto) 0.3 (0.1-1.2) X10*3/uL Eos # (Auto) 0.1 (0.0-0.4) X10*3/uL Baso # (Auto) 0.0 (0.0-0.2) X10*3/uL Abs Immat Gran (auto) 0.03 (0.00-0.03) X10*3/uL Absolute Neuts (auto) 5.4 (2.0-8.3) x10*3/uL Absolute Nucleated RBC 0.000 (0.0-0.012) X10*3/uL Nucleated RBC % (auto) 0.0 (0.0-0.2) /100WBC Sodium 139 (135-145) mmol/L Potassium 3.6 (3.3-5.1) mmol/L Chloride 106 (96-108) mmol/L Carbon Dioxide 25 (22-29) mmol/L Anion Gap 12 (12-20) BUN 10 (9-16) mg/dL Creatinine 0.70 (0.5-1.4) mg/dL Estim Creat Clear Calc 95.5 Estimated GFR > 60 Random Glucose 98 (60-115) mg/dL Calcium 9.1 (8.4-10.2) mg/dL Total Bilirubin 0.4 (0.0-1.0) mg/dL Direct Bilirubin 0.1 (0.0-0.5) mg/dL AST 21 (5-31) U/L ALT 18 (0-31) U/L Alkaline Phosphatase 76 (39-117) U/L Troponin I High Sens < 2.7 (<3.5-17.0) ng/L B-Natriuretic Peptide 40 (<100) pg/mL Total Protein 7.4 (6.5-8.0) g/dL Albumin 4.0 (3.5-5.0) g/dL Lipase 28 (8-78) U/L Urine Color Yellow Urine Appearance Clear Urine pH 6.5 (5.0-9.0) Ur Specific Kendall >= 1.030 H (1.005-1.025) Urine Protein Negative (Neg-Trace) mg/dL Urine Glucose (UA) Negative (Negative) mg/dL Urine Ketones Negative (Negative) mg/dL Urine Blood Negative (Negative) Urine Nitrite Negative (Negative) Ur Leukocyte Esterase Negative (Negative) Independent Interpretation I performed an independent interpretation of an: CT Scan (CT/CTA:1. No acute intracranial hemorrhage. 2. Anterior scalp hematoma with fundal convexity scalp defect. 3. Acute bilateral nasal bone fractures.) Radiology Impression Discussion of test interpretation with radiology: I have reviewed the radiologist's reading. Discharge Plan Discharge Clinical Impression: Chest pain, Left-sided muscle weakness Patient Disposition: Admitted As Inpatient Print Language: Azerbaijani
[2025-03-09] MEDS: iohexoL 350 MG/ML 100 ML INFUS..BTL IV (17:21)
[2025-03-09 18:02] LABS: Appearance Urine Clear; Color Urine Yellow; Glucose Urine UA Negative (Negative); Leukocyte Esterase Urine Negative (Negative); Nitrite Urine Negative (Negative); PH 6.5 (5.0-9.0); Specific Gravity - Urine >= 1.030 (1.005-1.025); Urine Blood Negative (Negative); Urine Ketones Negative (Negative); Urine Protein Negative (Neg-Trace)
[2025-03-09] MEDS: ondansetron HCL 4 MG/2 ML VIAL IVPUSH (18:07)
[2025-03-09] MEDS: Morphine Sulfate 2 MG/ML CARTRIDGE 1 MG IVPUSH (18:07)
--- OUTSIDE RECORDS SUMMARY | 2025-03-09 18:17 | XMS_ITS | Encounter Summary ---
Author Organization [facility] Address [address] [place] [address] Care Team Providers Care Invoice Clerk Name Role Phone Kenny Taylor Primary Care Provider Reason for Visit * Reason Onset Date Comments Appointment 03/01/2025 Encounter Details Date Type Department Care Team ([facility] st Contact Info) Description 03/01/2025 Telephone [facility] Cardiology [facility] [address] [place] [id number] Kenny Taylor PA [address] [place] [address] Appointment Social History Tobacco Use Types Packs/Day Years Used Date Smoking Tobacco: Never Assessed Comments Unknown Sex and Gender Information Value Date Recorded Sex Assigned at Not on file Legal Sex Female 9:43 AM EST Gender Identity Not on file Sexual Orientation Not on file documented as of this encounter Progress Notes * Sebastian Rivera - 03/01/2025 11:10 AM EDT Colin called to have a new patient appointment booked. If we can give her a call back to [facility] she would appreciate it. documented in this encounter Plan of Treatment Not on file documented as of this encounter Visit Diagnoses Not on filedocumented in this encounter Care Teams Invoice Clerk Relationship Specialty Start Date End Date Kenny Taylor PA [address] [place] [address] PCP - General Physician Package Sealer Machine 02/20/25 documented as of this encounter
--- OUTSIDE RECORDS SUMMARY | 2025-03-09 18:17 | XMS_ITS | Clinical Summary ---
Author Organization [facility] Address [address] [place] [address] Phone Care Team Providers Care Diamond Powder Technician Name Role Phone Kenny Taylor Primary Care Provider Encounters Date Type Department Care Team Description 03/01/[address] [place] [address] Kenny Taylor PA 03/01/[address] [place] [address] Kenny Taylor PA Appointment 02/27/[address] [place] [address] Kenny Taylor PA Referral ([place] from PCP office called, they were not aware that the patient was seen by Dr. Thomas López in 2021 will rectify with patient and call back) 02/16/2025 Telephone [place] [address] [place] [address] Kenny Taylor PA Referral (Received urgent paper referral - February - patient was seen by Dr Thomas López of [facility] on 12/25/2021. The referring provider was made aware of that.) from Last 3 Months Social History Tobacco Use Types Packs/Day Years Used Date Smoking Tobacco: Never Assessed Comments Unknown Sex and Gender Information Value Date Recorded Sex Assigned at Not on file Legal Sex Female 9:43 AM EST Gender Identity Not on file Sexual Orientation Not on file Plan of Treatment Health Maintenance Due Date Last Done Comments Breast Cancer Screening 1976 DTaP,Tdap,and Td Vaccines (1 - Tdap) 1995 Hepatitis B Vaccines (1 of 3 - 19+ 3-dose series) 1995 Cervical Cancer Screening: P ap Smear 1997 COVID-19 Vaccine (1 - 2023-2 5 season) 2024 Colorectal Cancer Screening: Colonoscopy 02/20/2025 Depression Screening 02/20/2025 HIV Screening 02/20/2025 Hepatitis C Screening 02/20/2025 Social Influencers of Health Screening 02/20/2025 Influenza Vaccine (Season Ended) 2025 HIB Vaccines Aged Out No longer eligi ble based on patient's age to complete this topic HPV Vaccines Aged Out No longer eligi ble based on patient's age to complete this topic Hepatitis A Vaccines Aged Out No long er eligible based on patient's age to complete this topic IPV Vaccines Aged Out No longer eligi ble based on patient's age to complete this topic MMR Vaccines Aged Out No longer eligi ble based on patient's age to complete this topic Meningococcal ACWY Vaccine Aged Out N o longer eligible based on patient's age to complete this topic Meningococcal B Vaccine Aged Out No l onger eligible based on patient's age to complete this topic Pneumococcal Vaccine: Pediat rics (0 to 5 Years) and At-Risk Patients (6 to 64 Years) Aged Out No longer eligible b ased on patient's age to complete this topic RSV Immunization Patients Un vijay 20 months Aged Out No longer eligible b ased on patient's age to complete this topic Varicella Vaccines Aged Out No longer eligible based on patient's age to complete this topic Insurance MEDICAID - [place] Care Teams Diamond Powder Technician Relationship Specialty Start Date End Date Kenny Taylor PA [address] [place] [address] PCP - General Physician Education Managers 02/20/25
--- NOTE | 2025-03-09 20:18 | PM.IMHP ---
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 Patient denies any recent travel or exposure to others with illness. In the ED patient was noted to have mild asymmetric facial weakness on the left side but no speech abnormality or change and was able to swallow normally. Patient was anxious and tearful initially in the ED. Head CT and CTA of the head and neck were all negative for acute findings Hospitalist was asked to see patient for evaluation for possible observation for TIA.Patient is seen and examined and patient reports a continued right parietal and occipital headache that is currently an 8/10. Patient has history of migraine without aura and patient states this headache is similar to her migraines but the intensity is much higher. Patient is also reporting chest pressure but no shortness of breath and it is midsternal with no radiation. Troponin negative and BNP 40. EKG normal sinus rhythm with no ischemic changes. Chest x-ray negative for acute findings. Patient denies any falls or recent injuries. Patient states the edema in her left arm is chronic. Patient has no obvious facial droop currently. Strength is equal in the upper and lower extremities 5/5. Patient afebrile. Blood pressure within normal limits. Patient has no obvious edema in the lower extremities or murmur noted on exam. Patient was on a Holter monitor recently per her primary care provider for reports of palpitations. There were no arrhythmias found. Patient is still asking to follow up with Cardiology which she will do as an outpatient. Telemetry notes normal sinus rhythm, heart rate 64. No murmur on exam. Patient follows with a neurologist for pituitary tumor and is monitored as an outpatient. Pt will be seeing a Wheel Setter for known lung nodules and is currently on waiting list for initial visit. Patient does live with anxiety, depression and panic attacks. Patient states that her anxiety has worsened since her mother's passing in May of 2024 from cardiac complications. Patient has fear that she will suffer from cardiac concerns. Patient being admitted under observation for TIA versus complex migraine. Plan for MRI of the brain in the a.m. with neurology consultation. Review of Systems Review of Systems: Patient is reporting chest pressure in the midsternal area 04/01. Patient reports intermittent anxiety but no recent panic attacks. Patient denies any shortness of breath at rest or with exertion, nausea, vomiting, abdominal pain, lower calf pain. Patient does have occasional numbness in bilateral lower extremities and hands which is chronic and why patient is on gabapentin. Patient reporting headache in the Right parietal and occipital area similar to her usual migraines but the intensity is much higher. Patient denies any visual acuity issues or loss of senses. Patient denies aura with migraines generally. Patient is still reporting left-sided weakness which has been ongoing for the last 3 days. Yes all other systems are reviewed and are negative [facility] Medical History (Updated 03/09/25 @ 20:55 by Dk Quintanilla MD) Joint pain Numbness and tingling of right thumb Numbness and tingling of left thumb Heart palpitations Anxiety HTN (hypertension) Irritable bowel Asthma Fibromyalgia Pituitary tumor Pseudotumor Cognitive capacity: Alert and orientated x3 Functional capacity: independent ambulation Family History Mother Diabetes Heart defect Thyroid disease Heart attack, Onset Age: 29 Mental health disorder Father Diabetes Hypertension Surgical History History of cholecystectomy History of biopsy History of delivery History of hysterectomy Social History Household Members: Children and Other Housing: House Alcohol intake: current Alcohol intake frequency: holidays/special occasions only Patient Tobacco Use Status: Former Tobacco user Tobacco use type: Cigarette Smoked in Last 30 Days: No e-Cigarette/Vaping Use: Never Used Second Hand Smoke Exposure: Yes Use of substances other than those prescribed or required for medical reasons: No Advance Directives: No Advance Directives Information Provided: No Do you have a plan to hurt others: No Plan Patient : No service: No Current occupational status: disabled Cognitive needs: No Hearing needs: No Vision needs: Yes (Glasses) Ebola Risk: Travel/Contact With Anyone From Affected Area/s: No Has Patient Experienced Ebola Symptoms: No Meds Allergies Allergy/AdvReac Type Severity Reaction Status Date / Time acetaminophen [Percocet] Allergy Unknown heart races Verified 03/09/25 15:26 citalopram [From Celexa] AdvReac Intermediate Nausea Verified 03/09/25 15:26 oxycodone [OXYCODONE] AdvReac Unknown PALPITATION Verified 03/09/25 15:26 S Active Medications: Current Medications Acetaminophen (Acetaminophen 325 Mg Tablet) 650 mg PO Q6H PRN PRN Reason: Pain, Mild 1-3,fever,headache Calcium Carbonate (Calcium Carbonate 750 Mg Tab.Chew) 750 mg PO Q4H PRN PRN Reason: Heartburn Magnesium Hydroxide (Milk Of Magnesia 30 Ml Oral.Susp) 30 ml PO DAILY PRN PRN Reason: Constipation Melatonin (Melatonin 3 Mg Tablet) 6 mg PO BEDTIME PRN PRN Reason: Insomnia Ondansetron HCl (Ondansetron Hcl 4 Mg/2 Ml Vial) 4 mg IVPUSH Q8H PRN PRN Reason: Nausea and Vomiting Sodium Chloride (0.9 % Sodium Chloride Flush 3 Ml Syringe) 3 ml IVFLUSH QSHIFT SANJIV Temazepam (Temazepam 15 Mg Capsule) 15 mg PO BEDTIME PRN PRN Reason: Insomnia Home Medications ?Medication ?Instructions ?Recorded ?Confirmed ?Last Taken ?Type citalopram 10 mg tablet 10 mg PO DAILY 03/09/25 Unknown History Physical Exam Vital Signs and Narrative: Vital Signs: Last Vital Signs Temp 98.3 F 03/09/25 19:26 Pulse 63 03/09/25 19:26 Resp 20 03/09/25 19:26 BP 128/74 03/09/25 19:26 Pulse Ox 98 03/09/25 19:26 O2 Del Method Room Air 03/09/25 19:26 BMI result Body Mass Index 36.9 Alert and orientated X3, able to give good history. Nervous Neuro: CN II-X11 intact, no deficits, visual acuity intact EYES: PERRLA, EOM intact ENT: hearing intact, no issues with swallowing, uvula midline, lips moist, nares patent no epistaxis Cardiac: S1 S2 RRR, no murmur, no JVD, no edema in Lower ext Pulmonary: lungs clear to auscultation B Abdominal: BS active in all 4 quadrants, no guarding, tenderness, rebounding MSK: strength 5/5 upper and lower extremities : no CVA tenderness no bladder distension Extremities: no edema in lower extremities, PT and DP pulses palpable +2, mild swelling LUE vs RUE no warmth, redness or limited ROM Psych: mood anxious, judgement and insight good SKin: no open wounds Results Labs 03/09/25 15:43 03/09/25 15:43 Labs: Laboratory Results - last 24 hr 03/09/25 03/09/25 15:43 17:52 MCV 87.6 MCH 29.5 MCHC 33.7 RDW 13.1 Plt Count 357 MPV 9.2 L Immature Gran % (Auto) 0.4 Neut % (Auto) 69.8 Lymph % (Auto) 24.5 [place] % (Auto) 4.4 Eos % (Auto) 0.6 Baso % (Auto) 0.3 Lymph # (Auto) 1.9 [place] # (Auto) 0.3 Eos # (Auto) 0.1 Baso # (Auto) 0.0 Abs Immat Gran (auto) 0.03 Absolute Neuts (auto) 5.4 Absolute Nucleated RBC 0.000 Nucleated RBC % (auto) 0.0 Anion Gap 12 Estim Creat Clear Calc 95.5 Estimated GFR > 60 Random Glucose 98 Calcium 9.1 Total Bilirubin 0.4 Direct Bilirubin 0.1 AST 21 ALT 18 Alkaline Phosphatase 76 B-Natriuretic Peptide 40 Total Protein 7.4 Albumin 4.0 Lipase 28 Urine Color Yellow Urine Appearance Clear Urine pH 6.5 Ur Specific [place] >= 1.030 H Urine Protein Negative Urine Glucose (UA) Negative Urine Ketones Negative Urine Blood Negative Urine Nitrite Negative Ur Leukocyte Esterase Negative ECG Attestation: I personally reviewed and interpreted this ECG as follows: (Normal sinus rhythm Minimal voltage criteria for LVH, may be normal variant ( R in aVL )) ECG interpretation date: 03/09/25 Prior ECG tracings: available for review Imaging Radiologist's Impressions: Impressions Chest X-Ray 03/09/25 15:35 IMPRESSION: No acute cardiopulmonary abnormality. Electronically signed by: Delmar Solis MD 03/09/2025 03:54 PM EDT Assessment and Plan (1) TIA (transient ischemic attack): Status: Acute (2) Chest pain: Qualifiers: Chest pain type: other chest pain Qualified Code(s): R07.89 - Other chest pain Status: Acute (3) Migraine: Qualifiers: Intractability: not intractable Migraine type: unspecified Status migrainosus presence: without status migrainosus Qualified Code(s): G43.909 - Migraine, unspecified, not intractable, without status migrainosus Status: Acute (4) Multiple subsolid lung nodules less than 6 mm in diameter: Status: Chronic (5) Deep vein thrombosis, upper left extremity: Qualifiers: Affected thrombotic vein of extremity: other upper extremity vein Chronicity: chronic Qualified Code(s): I82.722 - 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 Status: Chronic (6) MDD (major depressive disorder), recurrent episode, moderate: Status: Chronic (7) IBS (irritable bowel syndrome): Qualifiers: Irritable bowel syndrome type: with both diarrhea and constipation Qualified Code(s): K58.2 - Mixed irritable bowel syndrome Status: Chronic Plan Patient is a 49-year-old female with past medical history hypertension, IBS, migraine headaches without aura, 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 Patient was witnessed to have a mild facial droop which is now resolved. Patient being admitted under observation for MRI of the brain in the a.m. and neurology consultation for TIA versus complex migraine. TIA versus complex migraine with history of pituitary tumor -MRI of the brain in the a.m. -telemetry -continue Eliquis -Fioricet X1, consider Sumitriptan prn -Neurology consult in the a.m. -PT eval -Lipid panel in AM Chest pain -Troponin less than 2.7, EKG reassuring normal sinus rhythm with no ischemic changes -patient received morphine x1 in the ED with some relief -telemetry -BNP 40, no indication of CHF on exam no indication for echo at this time History multiple lung nodules -patient is awaiting 1st appointment with Pulmonary for further assessment -patient does not require oxygen, no hemoptysis reported -follow-up as an outpatient Deep vein thrombosis left basilic vein on Eliquis diagnosed December 2024 -patient continues on Eliquis -patient has been seen by Hematology as an outpatient and is undergoing a hypercoagulable workup -patient does not have lupus MDD/ anxiety/ panic attack -continue Ativan and sertraline IBS -currently asymptomatic, avoid senna and docusate sodium as well as MiraLax as patient has diarrhea more often than constipation DVT prophylaxis: Eliquis Med rec pending Patient being admitted under observation overnight for MRI of the brain in the a.m. as patient continues to report left-sided weakness with resolve of facial droop with a peristent headache in the right parietal and occipital areas. Patient will require expert consultation with Neurology. Total time managing care of this patient today: 35 minutes. Quality Stroke Does the patient have a stroke diagnosis?: No Reason for No Anti-thrombotic by Day Two: N/A - Med Ordered VTE Prior VTE?: No VTE Risk Level:: Medical - low VTE Device Contraindication: N/A - Device Ordered VTE Drug Contraindication: N/A - Med Ordered
[2025-03-09] MEDS: Apixaban 5 MG TABLET PO (21:25)
[2025-03-09] MEDS: Aspirin 81 MG TAB.CHEW PO (21:25)
[2025-03-09] MEDS: Butalb/Acetamin/Caff 50/325/40 TABLET 1 TAB PO (21:25)
[2025-03-09 21:45] LABS: Free T4 (Free Thyroxine) 0.91 ng/dL (0.71-1.85); Thyroid Stimulating Hormone 2.21 uIU/mL (0.32-4.0)
--- NOTE | 2025-03-09 22:04 | PHA.MEDREC ---
Addendum entered by Nela Rodriguez RPh 03/09/25 22:10: reviewed by [facility]. Original Note: Pharmacy Consult ? Medication Reconciliation Pharmacy has completed the medication reconciliation. Spoke to patient to confirm med list. Patient states she no longer takes Citalopram 10 mg, Lorazepam 0.5 mg. patient last took her medications today in the morning.
[2025-03-09] MEDS: 0.9 % Sodium Chloride Flush 3 ML SYRINGE IVFLUSH (23:40)
[2025-03-10 03:32] VITALS: BP 106/61; PULSE 65; RESP 20; TEMP 36.2; O2SAT 96
[2025-03-10 06:48] LABS: MANUAL DIFF FLAG NO
[2025-03-10 07:01] LABS: Basophils Percent Auto 0.3 % (0-2); Eosinophils Absolute Auto 0.1 X10*3/uL (0.0-0.4); Eosinophils Percent Auto 1.6 % (0-4); Hemoglobin 13.1 g/dl (12.0-16.0); Imm Gran Abs Auto 0.03 X10*3/uL (0.00-0.03); Imm Gran Pct Auto 0.4 % (0.0-0.4); Lymphocytes Absolute Auto 2.4 X10*3/uL (1.2-4.9); Lymphocytes Percent Auto 33.7 % (20-40); Mean Corpuscular HGB Conc 32.8 g/dl (31.0-35.0); Mean Corpuscular Hemoglobin 29.1 pg (27.0-33.0); Mean Corpuscular Volume 88.9 fL (80.0-98.0); Mean Platelet Volume 9.2 fL (9.4-12.3); Monocytes Absolute Auto 0.3 X10*3/uL (0.1-1.2); Monocytes Percent Auto 4.8 % (2-11); Neutrophils Absolute Auto 4.2 x10*3/uL (2.0-8.3); Neutrophils Percent Auto 59.2 % (45-73); Platelet Count 343 X10*3/uL (160-400); Red Cell Distribution Width 13.2 % (11.0-16.0)
[2025-03-10 07:09] LABS: Anion Gap 12 (12-20); Blood Urea Nitrogen 10 mg/dL (9-16); Calcium 8.9 mg/dL (8.4-10.2); Carbon Dioxide 23 mmol/L (22-29); Chloride 108 mmol/L (96-108); Cholesterol 203 mg/dL (<200); Creatinine Clr Calc Pharmacy 94.4; Estimated Glomerular Filt Rate > 60; Glucose Random 93 mg/dL (60-115); HDL Cholesterol 50 mg/dL (>40); LDL Cholesterol Calculated 133 mg/dL (<100); Potassium 3.8 mmol/L (3.3-5.1); Sodium 139 mmol/L (135-145); Triglycerides 100 mg/dL (<150)
[2025-03-10 07:30] VITALS: BP 127/73; PULSE 68; RESP 18; TEMP 36.1; O2SAT 96
[2025-03-10] MEDS: Sertraline HCL 25 MG TABLET PO (08:15)
[2025-03-10] MEDS: Apixaban 5 MG TABLET PO (08:15)
[2025-03-10] MEDS: Gabapentin 100 MG CAPSULE PO (08:15)
[2025-03-10] MEDS: Acetaminophen 325 MG TABLET 650 MG PO (08:15)
--- NOTE | 2025-03-10 08:15 | MHC.CM.PN ---
CM met with Patient at bedside and addressed HOOKER with her, providing Patient with the original and a copy has been placed on the chart. Patient lives in a house with her Father and her 20year old twins. Patient required no services nor DME PCA and home self care is her goal. CM has initiated and will follow for dc planning. PCP/PA is Kenny Taylor and Patient's Daughter will transport to home at time of dc.
[2025-03-10] MEDS: 0.9 % Sodium Chloride Flush 3 ML SYRINGE IVFLUSH (08:16)
[2025-03-10 08:45] VITALS: BP 127/73; PULSE 68; O2SAT 96
--- NOTE | 2025-03-10 10:19 | PM.NEUROCN ---
History of Present Illness Data of Consult Service Date: 03/10/25 Primary Care Provider: Kenny Taylor PA-C HPI Reason for consult: Headache 49 years old woman with complicated medical history described in her HPI presently on anticoagulation was having 3-4 days of headache every month and for last 3 days she was having a severe headache. Pain was in frontal and bilateral temporal area are also in the back stabbing burning type. At 1 time she said that she had palpitation and chest pressure radiating to her neck and she panicked and came to emergency room. Now her headache was about 3/10. Each headache was lasting for a day or many days. There was no recent trauma or cold or flu-like illness. Review of Systems Review of Systems: No recent cold or flu-like illness PMFSH Past Medical History Medical History (Updated 03/10/25 @ 10:22 by Medardo Sanchez MD) Joint pain Numbness and tingling of right thumb Numbness and tingling of left thumb Heart palpitations Anxiety HTN (hypertension) Irritable bowel Asthma Fibromyalgia Pituitary tumor Pseudotumor Family History Family History Mother Diabetes Heart defect Thyroid disease Heart attack, Onset Age: 29 Mental health disorder Father Diabetes Hypertension Surgical History Surgical History History of cholecystectomy History of biopsy History of delivery History of hysterectomy Social History Social History Household Members: Family and Children Housing: House Do you presently have visiting nurse or other home services: No Alcohol intake: current Alcohol intake frequency: holidays/special occasions only Patient Tobacco Use Status: Former Tobacco user Tobacco use type: Cigarette e-Cigarette/Vaping Use: Never Used Second Hand Smoke Exposure: Yes service: No Current occupational status: disabled Cognitive needs: No Hearing needs: No Vision needs: Yes (Glasses) Travel History Ebola Risk: Travel/Contact With Anyone From Affected Area/s: No Has Patient Experienced Ebola Symptoms: No Meds Allergies Allergy/AdvReac Type Severity Reaction Status Date / Time acetaminophen [From Percocet] Allergy Difficulty Verified 03/10/25 00:29 Breathing citalopram [From Celexa] AdvReac Intermediate Nausea Verified 03/09/25 15:26 oxycodone [OXYCODONE] AdvReac Unknown PALPITATION Verified 03/09/25 15:26 S Active Medications: Current Medications Acetaminophen (Acetaminophen 325 Mg Tablet) 650 mg PO Q6H PRN PRN Reason: Pain, Mild 1-3,fever,headache Last Admin: 03/10/25 08:15 Dose: 650 mg Albuterol Sulfate (Albuterol Sulfate 90 Mcg 8 Gm Inhaler) 1 puff INHALE RQID [facility] Last Admin: 03/10/25 08:03 Dose: Not Given Apixaban (Apixaban 5 Mg Tablet) 5 mg PO BID [facility] Last Admin: 03/10/25 08:15 Dose: 5 mg Calcium Carbonate (Calcium Carbonate 750 Mg Tab.Chew) 750 mg PO Q4H PRN PRN Reason: Heartburn Gabapentin (Gabapentin 100 Mg Capsule) 100 mg PO BID [facility] Last Admin: 03/10/25 08:15 Dose: 100 mg Lorazepam (Lorazepam 0.5 Mg Tablet) 0.5 mg PO Q6H PRN PRN Reason: Anxiety Magnesium Hydroxide (Milk Of Magnesia 30 Ml Oral.Susp) 30 ml PO DAILY PRN PRN Reason: Constipation Melatonin (Melatonin 3 Mg Tablet) 6 mg PO BEDTIME PRN PRN Reason: Insomnia Ondansetron HCl (Ondansetron Hcl 4 Mg/2 Ml Vial) 4 mg IVPUSH Q8H PRN PRN Reason: Nausea and Vomiting Sertraline HCl (Sertraline Hcl 25 Mg Tablet) 25 mg PO DAILY [facility] Last Admin: 03/10/25 08:15 Dose: 25 mg Sodium Chloride (0.9 % Sodium Chloride Flush 3 Ml Syringe) 3 ml IVFLUSH QSHIFT [facility] Last Admin: 03/10/25 08:16 Dose: 3 ml Temazepam (Temazepam 15 Mg Capsule) 15 mg PO BEDTIME PRN PRN Reason: Insomnia Physical Exam Vital Signs: Vital Signs: Last Vital Signs Temp 97.0 F 03/10/25 07:30 Pulse 68 03/10/25 08:45 Resp 18 03/10/25 07:30 BP 127/73 03/10/25 08:45 Pulse Ox 96 03/10/25 08:45 O2 Del Method Room Air 03/10/25 07:30 BMI result Body Mass Index 35.2 Neuro: Other: She is alert and awake with normal spontaneity of speech fluency comprehension and affect. Face is symmetrical. Visual trevino are full. There was no pronator drift. Deep tendon reflexes are 1+ with flexor plantars. Speech is normal. Results Labs 03/10/25 06:29 03/10/25 06:29 Labs: Short CBC 03/09/25 03/10/25 Range/Units 15:43 06:29 WBC 7.8 7.0 (4.8-10.8) X10*3/uL Hgb 13.3 13.1 (12.0-16.0) g/dl Hct 39.5 40.0 (37.0-47.0) % Plt Count 357 343 (160-400) X10*3/uL BMP 03/09/25 03/10/25 15:43 06:29 Sodium 139 139 Potassium 3.6 3.8 Chloride 106 108 Carbon Dioxide 25 23 BUN 10 10 Creatinine 0.70 0.69 Calcium 9.1 8.9 Liver Function 03/09/25 Range/Units 15:43 Total Bilirubin 0.4 (0.0-1.0) mg/dL Direct Bilirubin 0.1 (0.0-0.5) mg/dL AST 21 (5-31) U/L ALT 18 (0-31) U/L Alkaline Phosphatase 76 (39-117) U/L Albumin 4.0 (3.5-5.0) g/dL Urine 03/09/25 Range/Units 17:52 Urine Color Yellow Urine Appearance Clear Urine pH 6.5 (5.0-9.0) Ur Specific [place] >= 1.030 H (1.005-1.025) Urine Protein Negative (Neg-Trace) mg/dL Urine Glucose (UA) Negative (Negative) mg/dL Head CT did not reveal any significant abnormality. CTA of brain and neck did not reveal any significant abnormality. Assessment and Plan (1) Complicated migraine: Status: Acute 49 years old woman with underlying severe migraines probably suffered from complicated migraine associated with anxiety. Because of her main complain of palpitation and chest pressure, cardiac etiology can be considered and can be ruled out but seems less likely. She was already on anticoagulation and no complication of that was noted on her brain scan. My recommendation is to start topiramate 25 mg twice a day for headache control. Procedures Date of Service Date of Service: 03/10/25
[2025-03-10] MEDS: ondansetron HCL 4 MG/2 ML VIAL IVPUSH (10:26)
[2025-03-10] MEDS: Topiramate 25 MG TABLET PO (10:32)
--- NOTE | 2025-03-10 11:24 | P.DS_ITS ---
DS: Providers Provider Date of Service: 03/10/25 Date of admission: 03/09/25 20:11 Date of discharge: 03/10/25 Primary care physician: Kenny Taylor PA-C Consults: 03/09/25 20:17 Consult to Neurology Routine Consulting Provider: [facility] Reason for consultation: TIA vs COmplex Migraine, Stroke like symptoms in ED Has provider been notified: No Attending physician on discharge: Eriberto Mcpherson Discharging clinician: Lashae Westbrook DS: Diagnosis Discharge Diagnosis (1) Complicated migraine: Status: Acute DS: Summary Hospital Course Hospital Course: From H&P on the day of admission Patient is a 49-year-old female with past medical history hypertension, IBS, migraine headaches without aura, 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 Patient denies any recent travel or exposure to others with illness. In the ED patient was noted to have mild asymmetric facial weakness on the left side but no speech abnormality or change and was able to swallow normally. Patient was anxious and tearful initially in the ED. Head CT and CTA of the head and neck were all negative for acute findings Hospitalist was asked to see patient for evaluation for possible observation for TIA.Patient is seen and examined and patient reports a continued right parietal and occipital headache that is currently an 8/10. Patient has history of migraine without aura and patient states this headache is similar to her migraines but the intensity is much higher. Patient is also reporting chest pressure but no shortness of breath and it is midsternal with no radiation. Troponin negative and BNP 40. EKG normal sinus rhythm with no ischemic changes. Chest x-ray negative for acute findings. Patient denies any falls or recent injuries. Patient states the edema in her left arm is chronic. Patient has no obvious facial droop currently. Strength is equal in the upper and lower extremities 5/5. Patient afebrile. Blood pressure within normal limits. Patient has no obvious edema in the lower extremities or murmur noted on exam. Patient was on a Holter monitor recently per her primary care provider for reports of palpitations. There were no arrhythmias found. Patient is still asking to follow up with Cardiology which she will do as an outpatient. Telemetry notes normal sinus rhythm, heart rate 64. No murmur on exam. Patient follows with a neurologist for pituitary tumor and is monitored as an outpatient. Pt will be seeing a Hot Head Machine Operator for known lung nodules and is currently on waiting list for initial visit. Patient does live with anxiety, depression and panic attacks. Patient states that her anxiety has worsened since her mother's passing in May of 2024 from cardiac complications. Patient has fear that she will suffer from cardiac concerns. Patient being admitted under observation for TIA versus complex migraine. Plan for MRI of the brain in the a.m. with neurology consultation Headache. Patient was admitted for TIA versus complex migraine with history of pituitary tumor. (MRI from January 2024 shows no evidence of pituitary adenoma) Patient was admitted to telemetry floor, received a dose of Fioricet for treatment of headache. Was evaluated by Neurology who felt her symptoms were related to complex migraine syndrome and recommended Topamax 25 mg b.i.d.. She had MRI of the brain which was negative for any acute pathology. She was evaluated by Physical therapy who recommended outpatient services. Patient has ongoing issues with her left arm due to basilic vein thrombosis and has extensive outpatient workup ongoing due to many chronic issues. Chest pain Troponin less than 2.7, EKG reassuring normal sinus rhythm with no ischemic changes. Has had outpatient Holter for palpitations and follows with cardiology Deep vein thrombosis left basilic vein on Eliquis diagnosed December 2024 continued on Eliquis Time Attestation Discharge Coordination Time (in mins): 30 Quality: Safe Use of Opioids Does Pt have an Active Cancer Diagnosis on the Problem List?: No Quality: Stroke Does the patient have a stroke diagnosis?: No Physical Exam Vital Signs: Vital Signs: Last Vital Signs Temp 97.0 F 03/10/25 07:30 Pulse 68 03/10/25 08:45 Resp 18 03/10/25 07:30 BP 127/73 03/10/25 08:45 Pulse Ox 96 03/10/25 08:45 O2 Del Method Room Air 03/10/25 07:30 BMI result Body Mass Index 35.2 Const: General: cooperative, comfortable, no acute distress, alert and awake Nutritional Appearance: overweight Orientation/consciousness: patient oriented x3 Resp: Effort & Inspection: normal respiratory effort, able to speak in complete sentences, no respiratory distress and no use of accessory muscles Neuro: Other: face symmetrical, no pronator drift, speech intact. no focal deficits noted. General: patient oriented x3 and CN's II-XI intact bilaterally DS: Data Data Completed and Pending Labs on day of discharge: Laboratory Results - last 24 hr 03/09/25 03/09/25 03/10/25 15:43 17:52 06:29 WBC 7.8 7.0 RBC 4.51 4.50 Hgb 13.3 13.1 Hct 39.5 40.0 MCV 87.6 88.9 MCH 29.5 29.1 MCHC 33.7 32.8 RDW 13.1 13.2 Plt Count 357 343 MPV 9.2 L 9.2 L Immature Gran % (Auto) 0.4 0.4 Neut % (Auto) 69.8 59.2 Lymph % (Auto) 24.5 33.7 Traill % (Auto) 4.4 4.8 Eos % (Auto) 0.6 1.6 Baso % (Auto) 0.3 0.3 Lymph # (Auto) 1.9 2.4 Traill # (Auto) 0.3 0.3 Eos # (Auto) 0.1 0.1 Baso # (Auto) 0.0 0.0 Abs Immat Gran (auto) 0.03 0.03 Absolute Neuts (auto) 5.4 4.2 Absolute Nucleated RBC 0.000 0.000 Nucleated RBC % (auto) 0.0 0.0 Sodium 139 139 Potassium 3.6 3.8 Chloride 106 108 Carbon Dioxide 25 23 Anion Gap 12 12 BUN 10 10 Creatinine 0.70 0.69 Estim Creat Clear Calc 95.5 94.4 Estimated GFR > 60 > 60 Random Glucose 98 93 Calcium 9.1 8.9 Magnesium 2.0 Total Bilirubin 0.4 Direct Bilirubin 0.1 AST 21 ALT 18 Alkaline Phosphatase 76 Troponin I High Sens < 2.7 B-Natriuretic Peptide 40 Total Protein 7.4 Albumin 4.0 Triglycerides 100 Cholesterol 203 H LDL Cholesterol, Calc 133 H HDL Cholesterol 50 Lipase 28 TSH 2.21 Free T4 0.91 Urine Color Yellow Urine Appearance Clear Urine pH 6.5 Ur Specific [place] >= 1.030 H Urine Protein Negative Urine Glucose (UA) Negative Urine Ketones Negative Urine Blood Negative Urine Nitrite Negative Ur Leukocyte Esterase Negative Imaging MRI - head: Radiologist's impression: ITS Impressions Chest X-Ray 03/09/25 15:35 IMPRESSION: No acute cardiopulmonary abnormality. Electronically signed by: Delmar Solis MD 03/09/2025 03:54 PM EDT RP Brain MRI 03/10/25 10:45 IMPRESSION: No acute or structural brain abnormality. Negative exam. Electronically signed by: Anthony Price MD 03/10/2025 11:15 AM EDT RP Discharge Plan Discharge Anticipated Discharge Date/Time: 03/10/25 11:43 Patient Disposition: Home, Self-Care Discharge Diagnosis: complex migraine Referrals: Kenny Taylor PA-C [Primary Care Provider] - 1 Week Tiana Holden MD [Physician] - 1 Week Discharge Medications: New topiramate 25 mg tablet 25 mg PO BID 90 Days Qty: 180 0RF Continued sertraline 25 mg tablet 25 mg PO DAILY 30 Days Qty: 30 1RF gabapentin 100 mg capsule 100 mg PO BID 30 Days Qty: 60 4RF (DME) blood pressure test kit-large Kit See Rx Instructions .Route Qty: 1 0RF Rx Instructions: As directed melatonin 10 mg capsule 10 mg PO BEDTIME PRN (Reason: sleep) 60 Days Qty: 60 1RF albuterol sulfate 90 mcg/actuation HFA aerosol inhaler 1 inh inhalation QID 30 Days Qty: 8.5 3RF Eliquis 5 mg tablet 5 mg PO BID 30 Days Qty: 60 3RF Discharge Orders: Discharge Order (Routine); Ordered 03/10/25 Ordered By: Lashae Westbrook Activity on Discharge: As tolerated Stand Alone Forms: Patient Portal Discharge page Print Language: South African Care Plan Goals: see below Health Concerns: complex migrane Plan of Treatment: recommend topiramate 25 mg twice daily for control of headaches call to schedule follow up appointment with neurology Assessment: see discharge summary
--- OUTSIDE RECORDS SUMMARY | 2025-03-10 11:37 | XMS_ITS | Clinical Summary ---
Author Organization [facility] Address [address] [place] [address] Phone Care Team Providers Care Salesperson Shoes Name Role Phone Kenny Taylor Primary Care Provider Encounters Date Type Department Care Team Description 03/01/[address] [place] [address] Kenny Taylor PA 03/01/[address] [place] [address] Kenny Taylor PA Appointment 02/27/[address] [place] [address] Kenny Taylor PA Referral ([place] from PCP office called, they were not aware that the patient was seen by Dr. Thomas López in 2021 will rectify with patient and call back) 02/16/2025 Telephone [place] [address] [place] [address] Kenny Taylor PA Referral (Received urgent paper referral - February - patient was seen by Dr Thomas López of [facility] on 12/25/2021. [...] topic Insurance MEDICAID - [place] Care Teams Salesperson Shoes Relationship Specialty Start Date End Date Kenny Taylor PA [address] [place] [address] PCP - General Physician Experimental Outboard Motors Mechanic 02/20/25
--- OUTSIDE RECORDS SUMMARY | 2025-03-10 11:37 | XMS_ITS | Encounter Summary ---
Author Organization [facility] Address [address] [place] [address] Care Team Providers Care Neurosurgery Research Director Name Role Phone Kenny Taylor Primary Care Provider Reason for Visit * Reason Onset Date Comments Appointment 03/01/2025 Encounter Details Date Type Department Care Team ([facility] st Contact Info) Description 03/01/2025 Telephone [facility] Cardiology [facility] [address] [place] [phone] Kenny Taylor PA [address] [place] [address] Appointment Social History Tobacco Use [...] can give her a call back to [facility] she would appreciate it. documented in this encounter Plan of Treatment Not on file documented as of this encounter Visit Diagnoses Not on filedocumented in this encounter Care Teams Neurosurgery Research Director Relationship Specialty Start Date End Date Kenny Taylor PA [address] [place] [address] PCP - General Physician Performing Artist 02/20/25 documented as of this encounter
[2025-03-10] MEDS: Albuterol Sulfate 90 MCG 8 GM INHALER 1 PUFF INHALE (11:38)
[2025-03-10 11:40] VITALS: PULSE 68; RESP 18; O2SAT 94
[2025-03-10 11:41] VITALS: BP 123/63; PULSE 70; RESP 18; TEMP 36.6; O2SAT 93
--- NOTE | 2025-03-10 11:54 | MHC.CM.PN ---
Patient has been medically cleared for dc to home today, self care.
[2025-03-10] MEDS: Butalb/Acetamin/Caff 50/325/40 TABLET 1 TAB PO (12:12)
== END 2025-03-10 13:27 | disposition home or self-care (01) ==
LOC: HO.ED 20:55 → HO.EDOVER 21:35 → HO.IMC 22:27 → HO.EDOVER 03-10 10:35
PROVIDERS: Admitting Provider Nurse Practitioner Family; Emergency Provider Emergency Medicine; PCP Physician Assistant; Visit Provider Physician Assistant Medical
DX: G43.109 Migraine with aura, not intractable, without status migrainosus (principal); I82.722 Chronic embolism and thrombosis of deep veins of left upper extremity; R07.9 Chest pain, unspecified; I10 Essential (primary) hypertension; R53.1 Weakness; K58.9 Irritable bowel syndrome, unspecified; F41.8 Other specified anxiety disorders; F32.9 Major depressive disorder, single episode, unspecified; K58.2 Mixed irritable bowel syndrome; R91.8 Other nonspecific abnormal finding of lung field; Z79.01 Long term (current) use of anticoagulants; Z79.899 Other long term (current) drug therapy
CPT/HCPCS: 36415; 70496; 70498; 70551; 71045; 80048; 80061; 80076; 81003; 83690; 83735; 83880; 84439; 84443; 84484; 85025; 93005; 94640; 94664; 96374; 96375; 96376; 97161; 99222; 99285; J2270; J2405; Q9967

== ENCOUNTER → 2025-03-09 15:35 | Outpatient (BNV) | payer OTHER, SELFPAY | PROVIDERS: Emergency Provider Emergency Medicine; PCP Physician Assistant; Visit Provider Radiology Diagnostic Radiology | DX: R07.9 Chest pain, unspecified (principal); R42 Dizziness and giddiness | CPT/HCPCS: 70496; 70498; 71045 ==

== ENCOUNTER → 2025-03-09 15:35 | Outpatient (BNV) | payer OTHER, SELFPAY | PROVIDERS: Admitting Provider Nurse Practitioner Family; Emergency Provider Emergency Medicine; PCP Physician Assistant; Visit Provider Internal Medicine Cardiovascular Disease | DX: R07.9 Chest pain, unspecified (principal) | CPT/HCPCS: 93010 ==

== ENCOUNTER 2025-03-09 20:11 | Outpatient (BNV) | payer OTHER, SELFPAY | END 2025-03-10 10:45 | PROVIDERS: Admitting Provider Nurse Practitioner Family; Emergency Provider Emergency Medicine; PCP Physician Assistant; Visit Provider Radiology Diagnostic Radiology | DX: G43.109 Migraine with aura, not intractable, without status migrainosus (principal) | CPT/HCPCS: 70551 ==

== ENCOUNTER → 2025-03-09 20:11 | Outpatient (BNV) | payer OTHER, SELFPAY | PROVIDERS: Admitting Provider Nurse Practitioner Family; Emergency Provider Emergency Medicine; PCP Physician Assistant; Visit Provider Psychiatry & Neurology Neurology | DX: G43.109 Migraine with aura, not intractable, without status migrainosus (principal) | CPT/HCPCS: 99222 ==

== ENCOUNTER → 2025-03-09 20:11 | Outpatient (BNV) | payer OTHER, SELFPAY | PROVIDERS: Admitting Provider Nurse Practitioner Family; Emergency Provider Emergency Medicine; PCP Physician Assistant; Visit Provider Nurse Practitioner Family | DX: G43.109 Migraine with aura, not intractable, without status migrainosus (principal); R07.9 Chest pain, unspecified | CPT/HCPCS: 99222; 99238 ==

== ENCOUNTER 2025-03-15 15:49 | Outpatient (REF) | payer OTHER, SELFPAY ==
--- NOTE | ~2025-03-15 | US_ITS ---
CLINICAL HISTORY: I82.602 - Acute embolism and thrombosis of unspecified veins of left upp... --- Add itional Notes or Special Instructions: Please follow-up on previous ultrasound dated 12 27 2024 of a ba silic vein VENOUS DUPLEX ULTRASOUND LEFT UPPER EXTREMITY Comparison: US/SR - US VENOUS DUPLEX UE LT - 12/27/24 08:24 EST Findings: Accessible deep venous segments are fully compressible with normal Doppler color flow and spectral tracings. The visualized cephalic and basilic veins which are part of the superficial system are also patent. IMPRESSION: 1. Negative for left upper extremity deep and superficial vein thrombosis. This document has been electronically signed by: Mila Styles DO on 03/15/2025 16:42:38
--- OUTSIDE RECORDS SUMMARY | 2025-03-15 18:21 | XMS_ITS | Clinical Summary ---
Author Organization [facility] Address [address] [place] [address] Phone Care Team Providers Care Emissions Technician Name Role Phone Kenny Taylor Primary Care Provider Encounters Date Type Department Care Team Description 03/01/[address] [place] [address] Kenny Taylor PA 03/01/[address] [place] [address] Kenny Taylor PA Appointment 02/27/[address] [place] [address] Kenny Taylor PA Referral (La from PCP office called, they were not aware that the patient was seen by Dr. Thomas López in 2021 will rectify with patient and call back) 02/16/2025 Telephone [place] [address] [place] [address] Kenny Taylor PA Referral (Received urgent paper referral - February - patient was seen by Dr Thomas López of [facility] on 12/25/2021. The referring [...] Orientation Not on file Plan of Treatment Upcoming Encounters Date Type Department Care Team (Late st Contact Info) Description 03/24/2025 8:20 AM EDT Office Visit [facility] [address] [facility] [address] [place] [phone] Jaimee Gamble MD [address] [place] [address] Health Maintenance Due Date Last Done Comments Breast Cancer Screening 1976 DTaP,Tdap,and Td Vaccines (1 - Tdap) 1995 Hepatitis B Vaccines (1 of 3 - 19+ 3-dose series) 1995 Cervical Cancer Screening: P ap Smear 1997 COVID-19 Vaccine ( - 2023-2 5 season) 2024 Colorectal Cancer [...] topic Insurance [place] - [place] Care Teams Emissions Technician Relationship Specialty Start Date End Date Kenny Taylor PA [address] [place] [address] PCP - General Physician Respiratory Manager 02/20/25
== END 2025-03-15 15:50 | disposition home or self-care (01) ==
LOC: HO.US 15:49
PROVIDERS: PCP Physician Assistant; Visit Provider Surgery Vascular Surgery
DX: Z86.718 Personal history of other venous thrombosis and embolism (principal)
CPT/HCPCS: 93971

== ENCOUNTER → 2025-03-15 15:50 | Outpatient (BNV) | payer OTHER, SELFPAY | PROVIDERS: PCP Physician Assistant; Visit Provider Radiology Diagnostic Radiology | DX: I82.602 Acute embolism and thrombosis of unspecified veins of left upper extremity (principal) | CPT/HCPCS: 93971 ==

== ENCOUNTER 2025-03-17 10:23 | Outpatient (AMB) | payer OTHER, SELFPAY ==
[2025-03-17 10:25] VITALS: BP 134/94; PULSE 80; TEMP 36.3; O2SAT 99; BMI 35.8
--- NOTE | 2025-03-17 10:25 | A.OFFPC_ITS ---
Vital Signs 03/17/25 10:25 Height 5 ft Weight 183 lb 6 oz BMI 35.8 BP 134/94 H Blood Pressure Location Lt brachial Position Sitting Pulse 80 Pulse Source Pulse Oximeter Temp 97.3 F Temp Source Temporal Artery Scan Pulse Oximetry (%) 99 Oxygen Delivery Method Room Air Intake Visit Reasons: TCM [facility] 03/10 [employer] Salesperson Required: No Accompanied by: Self / Same As Patient Allergies citalopram [From Celexa] Adverse Reaction (Intermediate, Verified 03/17/25 10:26) Nausea oxycodone [OXYCODONE] Adverse Reaction (Unknown, Verified 03/17/25 10:26) PALPITATIONS Tobacco use date assessed: 12/20/24 Dental Screening Dental Screen Date: 12/20/24 HPI TCM TCM Information Date of Discharge 03/10/25 Discharged From [facility] Interactive Contact Date (Reference documentation from this date) 03/14/25 HPI Comments History of Present Illness Details 49 y/o Female patient who presents to [facility] today for TCM. 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 She was admitted at [facility] on 03/09 - 03/10 for TIA versus complex migraine with history of pituitary tumor. She had MRI of the brain which was negative for any acute pathology. Patient was started on Topiramate 25 mg BID and has a F/U with Neuro next week. [facility] Medical History (Updated 03/16/25 @ 14:12 by Gretta Calvillo MD) Joint pain Numbness and tingling of right thumb Numbness and tingling of left thumb Heart palpitations Anxiety HTN (hypertension) Irritable bowel Asthma Fibromyalgia Pituitary tumor Pseudotumor Surgical History History of cholecystectomy History of biopsy History of delivery History of hysterectomy Family History Mother Diabetes Heart defect Thyroid disease Heart attack, Onset Age: 29 Mental health disorder Father Diabetes Hypertension Social History Household Members: Family and Children Housing: House Do you presently have visiting nurse or other home services: No Alcohol intake: current Alcohol intake frequency: holidays/special occasions on ly Patient Tobacco Use Status: Former Tobacco user Tobacco use type: Cigarette e-Cigarette/Vaping Use: Never Used Second Hand Smoke Exposure: Yes service: No Current occupational status: disabled Cognitive needs: No Hearing needs: No Vision needs: Yes (Glasses) Questionnaire Thrive Questionnaire Date Thrive assessed: 12/27/24 I am a: Patient What is your living situation today?: I have a steady place to live Within the past 12 months, did the food you bought not last and you didn't have the money to get more?: Often true Within the past 12 months, did you worry whether your food would run out before you got money to buy more?: Often true Do you have trouble paying for medicines?: No Do you have trouble getting transportation to medical appointments?: No Do you have trouble paying your heating and electricity bill?: Yes Do you have trouble taking care of your child, family member or friend?: No Do you have trouble with day-to-day activities such as bathing, preparing meals, shopping, managing finances, etc.?: Yes Are you currently unemployed and looking for a job?: No Are you interested in more education?: No Please select the resources that you would like help with: None Currently or been in a relationship where the following occur: I choose not to answer THRIVE Score: 3 JUDY-7 AMB Questionnaire JUDY-7 Date JUDY - 7 assessed: 12/27/24 Source: Developed by Drs. Delmar Walker, Corinna Mccoy, Ty Cuevas and colleagues, with an educational reyes from [employer]. Review of Systems Const All systems reviewed & are unremarkable except as noted in HPI and below Physical exam (Primary Care) Vital Signs: Last Vital Signs Temp 97.3 F 03/17/25 10:25 Pulse 80 03/17/25 10:25 BP 134/94 H 03/17/25 10:25 Pulse Ox 99 03/17/25 10:25 Oxygen Delivery Method Room Air 03/17/25 10:25 BMI result Body Mass Index 35.8 Tobacco/Smoking Status: Tobacco use Status Tobacco use date assessed 12/20/24 03/17/25 10:28 Patient Tobacco Use Status Former Tobacco user 03/17/25 10:28 Tobacco use type Cigarette 03/17/25 10:28 e-Cigarette/Vaping Use Never Used 03/17/25 10:28 Thrive Assessment: Date of Thrive Assessment Date Thrive assessed 12/27/24 03/17/25 10:28 Currently or been in a relationship where the following occur: I choose not to answer Const General: no acute distress; No comfortable Nutritional Appearance: obese Orientation/consciousness: patient oriented x3 Resp Effort & Inspection: normal respiratory effort Auscultation: clear to auscultation bilaterally, no crackles, no rales, no rhonchi and no wheezes Cardio Heart sounds: S1 normal heart sound present and S2 normal heart sound present Neuro General: patient oriented x3, gait normal and moves all extremities Motor exam (neuro): 5/5 motor strength present throughout Psych Speech and movement: Normal speech and movement present Coding Level of Care Code TCM Mod MDM <= 14 Days Diagnoses Complicated migraine G43.109 Time Spent (min) 20 Assessment & Plan Assessment & Plan (1) Complicated migraine: Code(s): G43.109 - Migraine with aura, not intractable, without status migrainosus Category: Medical Plan: Prescribed Excedrin for Headaches. Scheduled with Neuro next week. Medications: New acetaminophen-caffeine 500-65 mg (Excedrin Tension Headache) 2 tabs PO Q6H 30 tabs 0RF G43.109 - Migraine with aura, not intractable, without status migrainosus
--- OUTSIDE RECORDS SUMMARY | 2025-03-17 10:52 | XMS_ITS | Clinical Summary ---
Author Organization [facility] Address [address] [place] [address] Phone Care Team Providers Care K 12 Principal Name Role Phone Kenny Taylor Primary Care Provider Encounters Date Type Department Care Team Description 03/01/[address] [place] [address] Kenny Taylor PA 03/01/[address] [place] [address] Kenny Taylor PA Appointment 02/27/[address] [place] [address] Kenny Taylor PA Referral (La from PCP office called, they were not aware that the patient was seen by Dr. Thomas López in 2021 will rectify with patient and call back) 02/16/2025 Telephone [place] [address] [place] [address] Kenny Taylor PA Referral (Received urgent paper referral - February - patient was seen by Dr Thomas López of [facility] on 12/25/2021. The [...] Description 03/24/2025 8:20 AM EDT Office Visit [facility] [address] [facility] [address] [place] [phone] Jaimee Gamble MD [address] [place] [address] Health Maintenance Due Date Last Done Comments [...] topic Insurance [place] - [place] Care Teams K 12 Principal Relationship Specialty Start Date End Date Kenny Taylor PA [address] [place] [address] PCP - General Physician Harvesting Supervisor 02/20/25
== END 2025-03-17 11:32 | disposition home or self-care (01) ==
LOC: HO.HMCH 10:24
PROVIDERS: PCP Physician Assistant; Visit Provider Nurse Practitioner Family
DX: G43.109 Migraine with aura, not intractable, without status migrainosus (principal)

== ENCOUNTER → 2025-03-17 10:23 | Outpatient (BNVA) | payer OTHER, SELFPAY | PROVIDERS: PCP Physician Assistant; Visit Provider Nurse Practitioner Family | DX: G43.109 Migraine with aura, not intractable, without status migrainosus (principal); I10 Essential (primary) hypertension; K58.9 Irritable bowel syndrome, unspecified; F41.9 Anxiety disorder, unspecified; F32.A Depression, unspecified; M79.7 Fibromyalgia; Z79.01 Long term (current) use of anticoagulants | CPT/HCPCS: 99495 ==

== ENCOUNTER 2025-03-28 14:40 | Outpatient (AMB) | payer OTHER, SELFPAY ==
--- NOTE | 2025-03-28 14:40 | MHC.OFFVIS ---
Vital Signs 03/28/25 14:41 Height 5 ft Weight 183 lb BMI 35.7 BP 132/84 Blood Pressure Location Rt brachial Position Sitting Intake Visit Reasons: Follow Up US Intake Note: Pt presents to the office today for a follow up US. Allergies citalopram [From Celexa] Adverse Reaction (Intermediate, Verified 03/28/25 14:43) Nausea oxycodone [OXYCODONE] Adverse Reaction (Unknown, Verified 03/28/25 14:43) PALPITATIONS HPI HPI Follow Up US: Details: The patient is a 49-year-old female presenting with a follow-up for a left upper extremity clot and evaluation of systemic symptoms. She was previously diagnosed with a clot in her left upper extremity and was treated with apixaban. Follow-up ultrasound confirmed resolution without persistent vascular involvement, though she reports ongoing pain, bruising, and a lump without clear etiology. Recently, she was admitted for chest pain. An MRI head scan ruled out neurological causes of her chronic migraines. The patient reports encounters with her bulb farmworker for rapid heart rate episodes, suspected to be paroxysmal tachycardia yet not currently treated with medication. Further extensive testing, particularly by a retail office manager, was conducted to explore potential autoimmune diseases like lupus, yielding inconclusive results after both positive and negative outcomes. The patient is under significant distress from unresolved symptoms and is considering specialist referral to tertiary medical centers for further evaluation. She now presents for follow-up with repeat ultrasound [facility] Medical History IBS (irritable bowel syndrome) Multiple subsolid lung nodules less than 6 mm in diameter Deep vein thrombosis, upper left extremity MDD (major depressive disorder), recurrent episode, moderate Joint pain Numbness and tingling of right thumb Numbness and tingling of left thumb Heart palpitations Anxiety HTN (hypertension) Irritable bowel Asthma Fibromyalgia Pituitary tumor Pseudotumor Surgical History History of cholecystectomy History of biopsy History of delivery History of hysterectomy Family History Mother Diabetes Heart defect Thyroid disease Heart attack, Onset Age: 29 Mental health disorder Father Diabetes Hypertension Social History Household Members: Family and Children Housing: House Do you presently have visiting nurse or other home services: No Alcohol intake: current Alcohol intake frequency: holidays/special occasions only Patient Tobacco Use Status: Former Tobacco user Tobacco use type: Cigarette e-Cigarette/Vaping Use: Never Used Second Hand Smoke Exposure: Yes service: No Current occupational status: disabled Cognitive needs: No Hearing needs: No Vision needs: Yes (Glasses) Review of Systems Const All systems reviewed & are unremarkable except as noted in HPI and below Reports no additional complaints ENT Reports Normal hearing present Card Denies chest pain, Denies chest pain at rest, Denies chest pain with activity and Denies pedal edema Resp Denies cough GI Denies abdominal pain Musc Denies abnormal gait, Denies muscle cramps and Denies radiating pain into limb Skin/Breast Denies skin ulcer and Denies wounds Neuro Reports Normal hearing present and Denies abnormal gait Psych Reports no additional complaints Physical Exam Vital Signs: Last Vital Signs BP 132/84 03/28/25 14:41 BMI result Body Mass Index 35.7 Const General: cooperative, healthy appearing and comfortable Orientation/consciousness: oriented to person, oriented to place and oriented to time HEENT Head: Yes normal to inspection Neck Neck: Yes normal visual inspection Carotids: no bruits Chest Chest palpation & inspection: normal inspection of the chest Resp Effort & Inspection: normal respiratory effort and able to speak in complete sentences Auscultation: clear to auscultation bilaterally, no crackles, no rales, no rhonchi and no wheezes Cardio Rate: regular rate Rhythm: regular rhythm Heart sounds: S1 normal heart sound present and S2 normal heart sound present Bruits: no carotid bruits Peripheral pulses: Peripheral pulses 2+ throughout GI Inspection: Yes normal to inspection Skin Wounds: no wounds Hair: normal Neuro General: oriented to person, oriented to place and oriented to time Cranial nerves: Yes CN's II-XII intact bilaterally and Yes Normal hearing present Cognition (Neuro): normal cognition Motor exam (neuro): 5/5 motor strength present throughout Extrem Other: venous exam: No significant superficial varicosities or spider telangiectasias, minimal edema General: No clubbing, No cyanosis and No edema Psych Appearance: grossly normal Mental Status: mental status grossly normal Speech and movement: Normal speech and movement present Results Reviewed Results Reviewed: Ultrasound dated 03/15/2025 was negative for left upper extremity deep and superficial vein thrombosis. Assessment & Plan Assessment & Plan (1) Thrombosis of left upper extremity: Code(s): I82.602 - Acute embolism and thrombosis of unspecified veins of left upper extremity Category: Medical Plan: In short it appears that the left upper extremity clot has resolved. I do not believe that is the source of her pain and discomfort. We did discuss the findings. Two is made aware of this. Recommend continued follow-up with Cardiology and Medical team. Re-evaluation by Rheumatology at a tertiary care center may be of benefit as well. She will follow up with us on an as-needed basis. Thank you for allowing us to assist in her care. If there are any questions or concerns please do not hesitate to contact us. Coding Level of Care Code Est Pt Level 4 (79682) Diagnoses Thrombosis of left upper extremity I82.602
[2025-03-28 14:41] VITALS: BP 132/84; BMI 35.7
--- OUTSIDE RECORDS SUMMARY | 2025-03-28 15:52 | XMS_ITS | Clinical Summary ---
Author Organization [facility] [employer] [facility] Address [address] [place] [address] Phone Care Team Providers Care Tape Cutter Name Role Phone Kenny Taylor Primary Care Provider Allergies Active Allergy Reactions Criticality Noted Date Comments Oxycodone-Acetaminophen Swelling,Palpitations 0 03/24/2025 Medications aspirin-acetami nophen-caffeine (EXCEDRIN MIGRAINE) 250-250-65 mg per tablet Take 2 tablets by mouth every 6 (six) hours if needed for headaches. Active gabapentin (NEURONTIN) 100 mg capsule Take 1 capsule (100 mg total) by mouth 2 (two) times a day. Active amitriptyline (ELAVIL) 25 mg tablet Take 1 tablet (25 mg total) by mouth at bedtime. Active apixaban (ELIQUIS) 5 mg tablet Take 1 tablet (5 mg total) by mouth 2 (two) times a day. Active sertraline (ZOLOFT) 25 mg tablet Take 1 tablet (25 mg total) by mouth 1 (one) time each day. Active Active Problems Problem Noted Date Diagnosed Date Chest pain 03/21/2025 Heart palpitations 03/21/2025 Encounters Date Type Department Care Team Description 03/24/2025 8:20 AM EDT Office Visit [facility] Cardiology [facility] [address] [facility] [address] [place] [address] Jaimee Sanchez MD Chest pain, unspecified type (Primary Dx); Heart palpitations 03/01/2025 Telephone [facility] Cardiology [facility] [address] [place] [address] Kenny Taylor PA 03/01/2025 Telephone [facility] [address] [place] [address] Kenny Taylor PA Appointment 02/27/[address] [facility] [address] [facility] [address] [place] [address] Kenny Taylor PA Referral (La from PCP office called, they were not aware that the patient was seen by Dr. Thomas López in 2021 will rectify with patient and call back) 02/16/2025 Telephone [facility] [address] [place] [address] Kenny Taylor PA Referral (Received urgent paper referral - February - patient was seen by Dr Thomas López of [facility] on 12/25/2021. The referring provider was made aware of that.) from Last 3 Months Medical History Medical History Date Comments Joint pain Anxiety Irritable bowel Asthma Fibromyalgia Pituitary tumor Pseudotumor Social History Tobacco Use Types Packs/Day Years Used Date Smoking Tobacco: Never Smokeless Tobacco: Never Tobacco Cessation:Counseling Given: Not Answered Alcohol Use Standard Drinks/Week Comments Yes 0 (1 standard drink = 0.6 oz pur e alcohol) Comments Unknown Sex and Gender Information Value Date Recorded Sex Assigned at Not on file Legal Sex Female 9:43 AM EST Gender Identity Not on file Sexual Orientation Not on file Obstetrics History Last Filed Vital Signs Vital Sign Reading Time Taken Comments Blood Pressure 140/80 03/24/2025 8:12 AM EDT Pulse 91 03/24/2025 8:12 AM EDT Temperature - - Respiratory Rate - - Oxygen Saturation 98% 03/24/2025 8:12 AM EDT Inhaled Oxygen Concentration - - Weight 85.7 kg (189 lb) 03/24/2025 8:12 AM EDT Height 152.4 cm (5') 03/24/2025 8:12 AM EDT Body Mass Index 36.91 03/24/2025 8:12 AM EDT Plan of Treatment Upcoming Encounters Date Type Department Care Team (Late st Contact Info) Description 10/02/2025 10:20 AM EST Office Visit [facility] [address] [facility] [address] [place] [phone] Jaimee Sanchez MD [address] [place] [address] Health Maintenance Due Date Last Done Comments Breast Cancer Screening 1976 DTaP,Tdap,and Td Vaccines (1 - Tdap) 1995 Hepatitis B Vaccines (1 of 3 - 19+ 3-dose series) 1995 Cervical Cancer Screening: P ap Smear 1997 COVID-19 Vaccine (2023-2 5 season) 2024 05/10/2021, 04/19/2021 Colorectal Cancer Screening: Colonoscopy 02/20/2025 Depression Screening 02/20/2025 HIV Screening 02/20/2025 Hepatitis C Screening 02/20/2025 Medicare Annual Wellness Visit 02/20/2025 Social Influencers of Health Screening 02/20/2025 [...] age to complete this topic Pneumococcal Vaccine: Pediatrics (0 to 5 Years) and At-Risk Patients (6 to 64 Years) Aged Out No longer eligible b ased on patient's age to complete this topic RSV Immunization Patients Under 20 months Aged Out No longer eligible b ased on patient's age to complete this topic Varicella Vaccines Aged Out No longer eligible based on patient's age to complete this topic Procedures Procedure Name Priority Date/Time Associated Diagnosis Comments ECG 12-LEAD Routine 03/24/2025 8:25 AM EDT Chest pain, unspecified type from Last 3 Months Results * ECG 12 lead (03/24/2025 8:25 AM EDT) Ventricular Rate ECG 87 BPM GEMUSE Atrial Rate 87 BPM GEMUSE P-R Interval 154 ms GEMUSE QRS Duration 80 ms GEMUSE Q-T Interval 366 ms GEMUSE QTc 440 ms GEMUSE P Wave [place] 52 degrees GEMUSE R [place] 29 degrees GEMUSE T [place] 42 degrees GEMUSE ECG Interpretation Normal sinus rhythm Nonspecific T wave abnormality Abnormal ECG No previous ECGs available Confirmed by JAIMEE SANCHEZ ([id number]) on 03/24/2025 9:54:55 AM GEMUSE 03/24/2025 8:25 AM EDT 03/24/2025 9:54 AM EDT us Jaimee Sanchez MD ECG ORDERABLES Final Result GEMUSE from Last 3 Months Insurance [employer] MEDICARE Member Subscriber Plan / Payer (Ef fective 2017-Present) Name:Colin Olmos Relation to Subscriber:Self Name:Coiln Olmos Payer ID:[id number] Group ID:[id number] Type:Not on file Address: [place] [address] [address] [phone] Care Teams Tape Cutter Relationship Specialty Start Date End Date Kenny Taylor PA [address] [place] [address] PCP - General Physician Propellant Charge Loader 02/20/25
--- OUTSIDE RECORDS SUMMARY | 2025-03-28 15:52 | XMS_ITS | Encounter Summary ---
Author Organization [employer] Address [address] [place] [address] Care Team Providers Care Metal Engineering Process Worker Name Role Phone Kenny Taylor Primary Care Provider [phone] Reason for Visit * Reason Comments Establish Care * Consultation (Routine) - Authorized Specialty Diagnoses / Procedures Referred By Contac t Referred To Contact Cardiology Diagnoses Chest pain, unspecified type Kenny Taylor PA [address] [place] [address] Phone: tel: fax: [facility] [address] [place] [address] Phone: tel: fax: Referral ID Status Reason Start Date Expiration Date Visits Requested Visits Authorized [id number] Authorized Specialty Services Required 02/20/2025 02/20/2026 1 1 Encounter Details Date Type Department Care Team (Late st Contact Info) Description 03/24/2025 8:20 AM EDT Office Visit [facility] Cardiology [facility] [address] [place] [address] Jaimee Sanchez MD [address] [place], [place] [id number] Chest pain, unspecified type (Primary Dx); Heart palpitations Social History Tobacco Use Types Packs/Day Years [...] on file documented as of this encounter Last Filed Vital Signs Vital Sign Reading [...] Mass Index 36.91 03/24/2025 8:12 AM EDT documented in this encounter Progress Notes * Jaimee Sanchez MD - 03/24/2025 8:20 AM EDT [facility] PCP: DAQUAN Burk I have obtained verbal consent from Colin Olmos prior to the recording. I have advised Benjy Olmos that she may refuse the recording and require the recording to be turned off at any time during this encounter. History of Present Illness The patient is a 49-year-old female who came in to discuss her ongoing palpitation symptoms, atypical chest pain. She has had a diagnosis of upper extremity DVT and has been on Eliquis for the past three to four months. She was diagnosed after noticing left upper extremity swelling. As a part of the workup, she was found to have a low titer GERMAN positivity she is seeing Dr. Navarrete, a soda maker. Dr. Navarrete did a panel of labs for inflammatory disorder-all of which was unyielding. She also ended up seeing a income tax preparer at [facility]-whose name she does not recall. A CAT scan of her chest was reportedly negative for thoracic outlet syndrome. She also has a history of presumed genaro kelly headaches-followed by Dr Sanchez of neurology, anxiety, depression, fibromyalgia, and pituitary tumor. She went to the ER because of palpitations. She has a history of frequent palpitations and chest pains, which were checked by She describes having a bad headache for two days before this episode. As a result of this headache, she had been generally feeling unwell. 1 day, after cooking some burgers on the grill, she felt a twitch in her face, which she initially ignored. She then felt a sharp, choking sensation associated with intense substernal chest pain and significant worsening in her headache. Her daughter called 911 after noticing that she may have had a facial droop. She remembers feeling numb and wobbly, unable to open her eyes. She was hospitalized at [facility] from 03/09/2025 to 03/10/2025. During this hospital stay, her troponins, BNP, EKG, and chest x-ray were all normal. An MRI showed her brain was normal, and her pituitary tumor was stable. She was ultimately diagnosed with what sounds like a complex migraine. She was initially started on Topamax but switchedto her current regimen of amitriptyline and gabapentin. This seems to be working better for her. She has not had any further episodes of atypical chest pain or chest pain in general. Regarding palpitation symptoms, these have been ongoing for several months to possibly years. Her PCP ordered a Holter monitor for this in December of 2024- results below. She previously saw Dr. Thomas López at [facility] in 2021, but nothing significant was found. She says her heart skips beats about six times a day, which is uncomfortable and lasts a few seconds. These episodes happen at any time, even when she's resting. She has polycystic ovary syndrome and has had several D & C procedures because of prolonged bleeding and anemia. She reports having early trimester miscarriage prior to her with her twins. She gave to twins at seven months at age 30-one naturally and the other by emergency . She had a history of gestational high blood pressure (with pre-existing diagnosis), which got w orse during her . She cannot say for certain but does not recall being given a diagnosis of preeclampsia or eclampsia. SOCIAL HISTORY Alcohol: Does not drink alcohol. Tobacco: Does not smoke. Coffee/Tea/Caffeine-containing Drinks: Does not drink caffeine too much. FAMILY HISTORY - Mother: Paulina Aguirre-a long time patient of mine with a history of HFrEF with multiple heart failure hospitalizations at the end of her life, she was also a paraplegic after an accident and her daughter was her longtime and full-time caregiver - Father: Dementia. ACTIVE MEDICATIONS: Current Outpatient Medications Medication Instructions amitriptyline (ELAVIL) 25 mg, Nightly apixaban (ELIQUIS) 5 mg, 2 times daily flblszp-kctcandrfrcrp-iejxxxov (EXCEDRIN MIGRAINE) 250-250-65 mg per tablet 2 tablets, Every 6 hours PRN gabapentin (NEURONTIN) 100 mg, 2 times daily sertraline (ZOLOFT) 25 mg, Daily PAST MEDICAL HISTORY: Patient Active Problem List Diagnosis Date Noted Date Diagnosed Chest pain 03/21/2025 Heart palpitations 03/21/2025 Resolved Problems No resolved problems to display. ALLERGIES: Allergies Allergen Reactions Percocet [Oxycodone-Acetaminophen] Swelling and Palpitations SOCIAL HISTORY: Social History Tobacco Use Smoking status: Never Smokeless tobacco: Never Substance Use Topics Alcohol use: Yes PHYSICAL EXAM: Vitals: 03/24/25 0812 BP: (!) 140/80 BP Location: Left arm Patient Position: Sitting BP Cuff Size: Adult Pulse: 91 SpO2: 98% Weight: 85.7 kg (189 lb) Height: 1.524 m (60 ) Physical Exam General Appearance: Alert and in no acute distress. Neck: Carotid pulses were examined. Respiratory: Clear to auscultation bilaterally. Cardiovascular: Regular rate and rhythm. No murmurs or gallops detected. Gastrointestinal: Soft and nontender to palpation. Extremities: No edema in the lower extremities. Neurological: Awake, alert and oriented x 3, Cranial nerves II-XII grossly intact. EKG: Encounter Date: 03/24/25 ECG 12 lead Result Value Ventricular Rate ECG 87 Atrial Rate 87 P-R Interval 154 QRS Duration 80 Q-T Interval 366 QTc 440 P Wave [place] 52 R [place] 29 T [place] 42 ECG Interpretation Normal sinus rhythm Nonspecific T wave abnormality Abnormal ECG No previous ECGs available *Note: Due to a large number of results and/or encounters for the requested time period, some results have not been displayed. A complete set of results can be found in Results Review. TESTING: - Holter monitor: 12/2024, Sinus rhythm with physiologic variation, no arrhythmias or significant pauses or high grade AV block, rare APCs and PVCs 49 y.o. female who presents for cardiac consultations for symptoms of ongoing, intermittent palpitations and an episode of atypical chest pain, for which she was hosptilized thankfully negative cardiac workup. She is clinically euvolemic on exam. There were no overly concerning EKG or physical examfindings. Please see problem specific recommendations below. Assessment & Plan 1. Palpitations. Her palpitations are likely due to a subjective awareness of atrial premature contractions (APCs) based on her description. These are generally benign but can be symptomatic. Given her recent other medical issues, adding beta blockers or calcium channel blockers could potentially exacerbate other issues. Future symptoms will be monitored. Today's EKG and the Holter monitor from 12/2024 were both reassuring. 2. Atypical chest pain. The atypical chest pain appears to be part of her complex migraine diagnosis rather than a primary cardiac issue. These symptoms have resolved with a change in her medications by her neurologist. 3. Anxiety and depression. She has anxiety, depression, and panic attacks. I suspect this may be exacerbating some of her current symptoms as well. Given her recent loss of her mother, I think it is of paramount importance that she seek help from a counselor that she trusts. She is in the process of finding such a counselor. She is also being managed with SSRIs through her PCP for this. She is currently on sertraline, which was switched from citalopram due to gastrointestinal side effects. She is advised to take sertraline with food to minimize stomach upset and avoid taking it at night to prevent insomnia. Follow up in about 6 months (around 09/24/2025). Thank you for allowing us to participate in the care of this patient. CC: DAQUAN Burk The [facility] team will continue to co-manage this patient following the plan of care as established by my initial visit and as per AHA guidelines for ongoing management and surveillance of the above mentioned issues. This will include medication titration, initiation of appropriate medications and further titration, and diagnostic studies to manage this disease process. This note was dictated using voice recognition software. Please pardon any grammatical or syntax errors. documented in this encounter Plan of Treatment Upcoming Encounters Date Type Department Care Team (Late st Contact Info) Description 10/02/2025 10:20 AM EST Office Visit [facility] - [address] [place] [address] Jaimee Sanchez MD [address] [place] [address] documented as of this encounter Procedures Procedure Name Priority Date/Time Associated Diagnosis Comments ECG 12-LEAD Routine 03/24/2025 8:25 AM EDT Chest pain, unspecified type documented in this encounter Results * ECG 12 lead (03/24/2025 8:25 AM EDT) Ventricular Rate ECG 87 BPM GEMUSE Atrial Rate 87 BPM GEMUSE P-R Interval 154 ms GEMUSE QRS Duration 80 ms GEMUSE Q-T Interval 366 ms GEMUSE QTc 440 ms GEMUSE P Wave [place] 52 degrees GEMUSE R [place] 29 degrees GEMUSE T [place] 42 degrees GEMUSE ECG Interpretation Normal sinus rhythm Nonspecific T wave abnormality Abnormal ECG No previous ECGs available Confirmed by JAIMEE SANCHEZ ([id number]) on 03/24/2025 9:54:55 AM GEMUSE 03/24/2025 8:25 AM EDT 03/24/2025 9:54 AM EDT Jaimee Sanchez MD ECG ORDERABLES Final Result GEMUSE documented in this encounter Visit Diagnoses Diagnosis Chest pain, unspecified type- Primary Heart palpitations Palpitations documented in this encounter Historical Medications * This list may reflect changes made after this encounter. sertraline (ZOLOFT) 25 mg tablet Take 1 tablet (25 mg total) by mouth 1 (one) time each day. apixaban (ELIQUIS) 5 mg tablet Take 1 tablet (5 mg total) by mouth 2 (two) times a day. amitriptyline (ELAVIL) 25 mg tablet Take 1 tablet (25 mg total) by mouth at bedtime. gabapentin (NEURONTIN) 100 mg capsule Take 1 capsule (100 mg total) by mouth 2 (two) times a day. aspirin-acetamino phen-caffeine (EXCEDRIN MIGRAINE) 250-250-65 mg per tablet Take 2 tablets by mouth every 6 (six) hours if needed for headaches. added in this encounter Orders Outpatient Referral Count Last Ordered Date Fir st Ordered Date AMB REFERRAL TO CARDIOLOGY 1 03/24/2025 documented in this encounter Care Teams Metal Engineering Process Worker Relationship Specialty Start Date End Date Kenny Taylor PA [address] [place] [phone] PCP - General Physician Computer Systems Engineer 02/20/25 documented as of this encounter
== END 2025-03-28 15:12 | disposition home or self-care (01) ==
PROVIDERS: PCP Physician Assistant; Visit Provider Surgery Vascular Surgery
DX: I82.602 Acute embolism and thrombosis of unspecified veins of left upper extremity (principal)
CPT/HCPCS: 99214

== ENCOUNTER → 2025-03-28 14:40 | Outpatient (BNVA) | payer OTHER, SELFPAY | PROVIDERS: PCP Physician Assistant; Visit Provider Surgery Vascular Surgery | DX: I82.602 Acute embolism and thrombosis of unspecified veins of left upper extremity (principal) | CPT/HCPCS: 99212 ==

== ENCOUNTER 2025-06-14 08:16 | Outpatient (AMB) | payer OTHER, SELFPAY ==
--- NOTE | 2025-06-14 08:26 | A.OFFPC_ITS ---
Vital Signs 3 06/14/25 08:27 Height 5 ft Weight 184 lb 4 oz BMI 36.0 BP 122/70 Blood Pressure Location Rt brachial Position Sitting Pulse 93 Pulse Source Pulse Oximeter Temp 96.6 F L Temp Source Temporal Artery Scan Pulse Oximetry (%) 96 Oxygen Delivery Method Room Air Intake Visit Reasons: discuss arm pain Intake Note: Patient is here to follow up on Left arm pain with swelling and requesting for referral. Flag Maker Required: No Military Aircraft Designer: Not Required per policy Accompanied by: Self / Same As Patient Allergies citalopram (From Celexa) Adverse Reaction (Intermediate, Verified 06/14/25 08:38) Nausea oxycodone (OXYCODONE) Adverse Reaction (Unknown, Verified 06/14/25 08:38) PALPITATIONS Medication List - Last Reconciled 06/14/25 by Kenny Taylor PA-C acetaminophen-caffeine 500-65 mg (Excedrin Tension Headache) 2 tabs PO Q6H albuterol sulfate 90 mcg/actuation 1 inh inhalation QID 30 days amitriptyline 25 mg PO BEDTIME 90 days blood pressure test kit-large As directed gabapentin 100 mg PO BID 30 days sertraline 25 mg PO DAILY 30 days Tobacco use date assessed: 06/14/25 Dental Screening Dental Screen Date: 12/20/24 HPI discuss arm pain 2 HPI0 Details The patient is a 50-year-old female presenting with a follow-up for a left upper extremity clot and evaluation of systemic symptoms. She was previously diagnosed with a clot in her left upper extremity and was treated with apixaban. Follow-up ultrasound confirmed resolution without persistent vascular involvement, though she reports ongoing pain, bruising, and a lump without clear etiology. She does of note also report numbness and tingling in both hands in the radiate into the wrist and forearm. Will try for EMG testing to evaluate for neuropathy. Apixaban has been discontinued. Recently, she was admitted for chest pain. An MRI head scan ruled out neurological causes of her chronic migraines. The patient reports encounters with her counter clerk tractor parts for rapid heart rate episodes, suspected to be paroxysmal tachycardia yet not currently treated with medication. Further extensive testing, particularly by a assault amphibious vehicle officer, was conducted to explore potential autoimmune diseases like lupus, yielding inconclusive results after both positive and negative outcomes. The patient is under significant distress from unresolved symptoms and is considering specialist referral to tertiary medical centers for further evaluation. Generalized anxiety disorder: Patient continues on sertraline 25 mg and reports it is not helpful for her anxiety as she has been having more anxiety with heart palpitations. She is interested in increasing her sertraline to 50 mg and will try to get her back into mental health therapist for cognitive behavioral therapy [facility] Medical History IBS (irritable bowel syndrome) Multiple subsolid lung nodules less than 6 mm in diameter Deep vein thrombosis, upper left extremity MDD (major depressive disorder), recurrent episode, moderate Joint pain Numbness and tingling of right thumb Numbness and tingling of left thumb Heart palpitations Anxiety HTN (hypertension) Irritable bowel Asthma Fibromyalgia Pituitary tumor Pseudotumor Surgical History History of cholecystectomy History of biopsy History of delivery History of hysterectomy Family History Mother Diabetes Heart defect Thyroid disease Heart attack, Onset Age: 29 Mental health disorder Father Diabetes Hypertension Social History Household Members: Family and Children Housing: House Do you presently have visiting nurse or other home services: No Alcohol intake: current Alcohol intake frequency: holidays/special occasions only Patient Tobacco Use Status: Former Tobacco user Tobacco use type: Cigarette e-Cigarette/Vaping Use: Never Used Second Hand Smoke Exposure: Yes service: No Current occupational status: disabled Cognitive needs: No Hearing needs: No Vision needs: Yes (Glasses) Questionnaire Thrive Questionnaire Date Thrive assessed: 12/27/24 I am a: Patient What is your living situation today?: I have a steady place to live Within the past 12 months, did the food you bought not last and you didn't have the money to get more?: Often true Within the past 12 months, did you worry whether your food would run out before you got money to buy more?: Often true Do you have trouble paying for medicines?: No Do you have trouble getting transportation to medical appointments?: No Do you have trouble paying your heating and electricity bill?: Yes Do you have trouble taking care of your child, family member or friend?: No Do you have trouble with day-to-day activities such as bathing, preparing meals, shopping, managing finances, etc.?: Yes Are you currently unemployed and looking for a job?: No Are you interested in more education?: No Please select the resources that you would like help with: None Currently or been in a relationship where the following occur: I choose not to answer THRIVE Score: 3 JUDY-7 AMB Questionnaire JUDY-7 Date JUDY - 7 assessed: 12/27/24 Source: Developed by Drs. Delmar Walker, Corinna Mccoy, Ty Cuevas and colleagues, with an educational reyes from [employer]. Review of Systems Const Denies headache(s) Eyes Denies loss of vision ENT Denies vertigo, Denies dizziness, Denies headache(s) and Denies sore throat Card Denies chest pain, Denies leg edema and Denies lightheadedness Resp Denies cough, Denies hemoptysis and Denies wheezing GI Denies abdominal pain, Denies melena, Denies constipation, Denies diarrhea and Denies vomiting Denies urinary frequency, Denies dysuria and Denies urinary urgency Musc Denies arthralgias, Denies joint swelling, Denies numbness and Denies tingling Neuro Denies Abnormal speech present, Denies behavioral changes, Denies vertigo, Denies dizziness, Denies headache(s), Denies loss of vision, Denies memory loss, Denies numbness and Denies tingling Psych Denies anxiety, Denies behavioral changes, Denies depression, Denies memory loss and Denies panic attacks Herman/Lymph Denies easy bleeding and Denies easy bruising Aller/Immun Denies wheezing Physical exam (Primary Care) Vital Signs: Last Vital Signs Temp 96.6 F L 06/14/25 08:27 Pulse 93 06/14/25 08:27 BP 122/70 06/14/25 08:27 Pulse Ox 96 06/14/25 08:27 Oxygen Delivery Method Room Air 06/14/25 08:27 BMI result Body Mass Index 36.0 Tobacco/Smoking Status: Tobacco use Status Tobacco use date assessed 06/14/25 06/14/25 08:29 Patient Tobacco Use Status Former Tobacco user 06/14/25 08:29 Tobacco use type Cigarette 06/14/25 08:29 e-Cigarette/Vaping Use Never Used 06/14/25 08:29 Thrive Assessment: Date of Thrive Assessment Date Thrive assessed 12/27/24 06/14/25 08:29 Currently or been in a relationship where the following occur: I choose not to answer Const General: healthy appearing, no acute distress, alert and awake Nutritional Appearance: well nourished Orientation/consciousness: oriented to person, oriented to place and oriented to time HENMT Ears: TM's normal bilaterally General nose exam: Normal nasal mucous membranes and turbinates present Eyes Conjunctivae: conjunctivae normal Sclerae: sclerae normal Pupils: Equal, round and reactive pupils present Neck Neck: Yes no lymphadenopathy and Yes no JVD Thyroid: Thyroid normal Carotids: no bruits Resp Effort & Inspection: normal respiratory effort and not tachypneic Auscultation: no crackles, no rales, no rhonchi and no wheezes Cardio Rate: regular rate Rhythm: regular rhythm Heart sounds: no murmurs and normal S1 and S2 GI Palpation (GI): Soft to palpation, nontender, no hepatomegaly and no splenomegaly Auscultation: normal bowel sounds Skin General skin exam: no rashes or lesions noted and dry skin Neuro General: oriented to person, oriented to place and oriented to time Cranial nerves: Yes Equal, round and reactive pupils present Speech: No Abnormal speech present Gait exam (Neuro): Normal gait present Motor exam (neuro): no tremor noted Extrem Other: LEFT UPPER EXTREMITY: TENDERNESS TO PALPATION OVER THE POSTERIOR TRAPEZIUS REGION. NO NOTABLE ERYTHEMA OR BRUISING. Right upper extremity: full ROM and edema Left upper extremity: full ROM and edema Shoulder/upper arm images: 2 1. AREA OF PATIENT'S TENDERNESS IN MILD LOCALIZED EDEMA Right lower extremity: full ROM; no edema Left lower extremity: full ROM; no edema Psych Mental Status: mental status grossly normal Speech and movement: Normal speech and movement present Affect: normal affect Attitude: cooperative Thought process: Normal thought process present Coding Level of Care Code Est Pt Level 4 (37694) Diagnoses Left arm swelling M79.89 Encounter for screening mammogram for malignant neoplasm of breast Z12.31 Breast cancer screening modality: mammogram GERMAN positive R76.8 Anasarca R60.1 Paresthesia of both hands R20.2 Assessment & Plan Assessment & Plan (1) Left arm swelling: Code(s): M79.89 - Other specified soft tissue disorders Category: Medical Plan: Patient has a history of a thrombus in the left upper extremity though seems to have resolved. Apixaban has been discontinued. She continues to have pain and cramping in her left upper extremity now particularly in the posterior triceps area. Will send for ultrasound again to evaluate for recurrent clot. Otherwise due to her reports a paresthesias of her upper extremities will send for EMG and nerve velocity testing to evaluate for neuropathy (2) Breast cancer screening: Code(s): Z12.39 - Encounter for other screening for malignant neoplasm of breast Category: Medical Qualifiers: Breast cancer screening modality: mammogram Qualified Code(s): Z12.31 - Encounter for screening mammogram for malignant neoplasm of breast Plan: Patient has yet to get any recent mammogram and is willing to do so. (3) GERMAN positive: Code(s): R76.8 - Other specified abnormal immunological findings in serum Category: Medical Plan: The patient has been referred to rheumatology for further evaluation of the positive GERMAN (1:40), indicating a possible autoimmune condition. She is had fairly in-depth rheumatology evaluation here in [place] though no specific diagnosis has been found. Further diagnostic workup is necessary to determine the specific condition. Will try for 2nd opinion had a larger establishment in [place] for rheumatology evaluation (4) Anasarca: Code(s): R60.1 - Generalized edema Category: Medical Plan: Patient appears to be fairly swollen on in her upper extremities, lower extremities and abdomen. Kidney function has been normal. Unclear etiology to patient's ? Anasarca (5) Paresthesia of both hands: Code(s): R20.2 - Paresthesia of skin Category: Medical Plan: The patient reports numbness and tingling in fingers and toes. A nerve conduction study may be considered to evaluate for possible neuropathy. Orders: Orders 2 US venous duplex UE LT Today I82.602 - Acute embolism and thrombosis of unspecified veins of left upper extremity Complete Blood Count no Diff Today R60.1 - Generalized edema MM screening mammo BI Today Z12.31 - Encounter for screening mammogram for malignant neoplasm of breast NE electromyogram (EMG) Today R20.2 - Paresthesia of skin NE nerve conduction velocity Today R20.2 - Paresthesia of skin Comprehensive Met. Panel Today R60.1 - Generalized edema Referrals 2 Counseling Referral F41.1 - Generalized anxiety disorder Rheumatology Referral R60.1 - Generalized edema Medications: New 2 sertraline 50 mg PO DAILY 30 tabs 1RF 30 days F41.1 - Generalized anxiety disorder Discontinued 2 sertraline Discontinued Reason: Change Referral Type 25 mg PO DAILY 30 days 30 tabs 3RF F41.1 - Generalized anxiety disorder
[2025-06-14 08:27] VITALS: BP 122/70; PULSE 93; TEMP 35.9; O2SAT 96; BMI 36.0
--- OUTSIDE RECORDS SUMMARY | 2025-06-14 08:28 | XMS_ITS | Clinical Summary ---
[facility] Address [address] [place] [address] Phone Care Team Providers Care Data Processing Control Clerk Name Role Phone Kenny Taylor Primary Care Provider [phone] Allergies Active Allergy Reactions Criticality Noted Date [...] Description 03/24/2025 8:20 AM EDT Office Visit [facility] [address] [facility] [address] [place] [address] Jaimee Sanchez MD Chest pain, unspecified type (Primary Dx); Heart palpitations from Last 3 Months Medical History Medical [...] Description 10/02/2025 10:20 AM EST Office Visit [facility] [address] [id number] Jaimee Sanchez MD [address] [place] [address] Health Maintenance Due Date Last Done Comments Breast Cancer Screening 1976 DTaP,Tdap,and Td Vaccines (1 - Tdap) 1995 Hepatitis B Vaccines (1 of 3 - 19+ 3-dose series) 1995 Cervical Cancer Screening: P ap Smear 1997 COVID-19 Vaccine (2023-2 5 season) 2024 05/10/2021, 04/19/2021 Depression Screening 11/23/2024 Colorectal Cancer Screening: Colonoscopy 02/20/2025 HIV Screening 02/20/2025 Hepatitis C Screening 02/20/2025 Medicare Annual Wellness Visit 02/20/2025 Social Influencers of Health Screening 02/20/2025 Influenza Vaccine (#1) 2025 HIB Vaccines Aged Out No longer [...] 5 Years) and At-Risk Patients (6 to 49 Years) Aged Out No longer eligible b [...] GEMUSE QTc 440 ms GEMUSE P Wave [place] 52 degrees GEMUSE R [place] 29 degrees GEMUSE T [place] 42 degrees GEMUSE ECG Interpretation Normal sinus [...] fective 2017-Present) Name:Colin Olmos Relation to Subscriber:Self Name:Colin Olmos Payer ID:[id number] Group ID:[id number] Type:Not on file Address: [place] [address] [id number] Care Teams Data Processing Control Clerk Relationship Specialty Start Date End Date Kenny Taylor PA PCP - General Physician Residential Solar Consultant 02/20/25
--- OUTSIDE RECORDS SUMMARY | 2025-06-14 08:28 | XMS_ITS | Patient Health Record ---
Author Organization [facility] Address [address] [place] [address] Care Team Providers Care Body Builder Apprentice Name Role Phone Anum (RETIRED) Lamonte ROBERTS Primary Care Provide r Unavailable Delmar Braxton Unavailable [phone] Allergies Allergen (clinical drug ingredient) Drug/Non Drug Allergy documented on EMR Reaction Allergy Type Onset Date Status acetaminophen / oxycodone Percocet Unknown Drug Allergy Active Reason For Referral No Information Medications Medication SIG (Take, Route, Frequency, Duration) Notes Start Date End Date Status Dicyclomine HCl 10 MG 1-2 capsules Orall y Four times a day prn abdominal pain/cramps for 30 day(s) 09/17/2017 Active Ibuprofen 800 MG 1 tablet with food o r milk Orally Not daily Active Cholestyramine 4 GM/DOSE 1/2 to 2 scoops Orally Once or Twice a day for diarrhea for 30 day(s) 09/17/2017 Active Social History Tobacco Use: Social History Observation Description Date Details (start date - stop date) Former Smoker NA - NA Tobacco Use/Smoking Question Answer Notes Patient is a former smoker How long has it been since you last smoked? 5-10 years Alcohol Screen Question Answer Notes Did you have a drink contain ing alcohol in the past year? Yes How often did you have a dri nk containing alcohol in the past year? Monthly or less (1 point) How many drinks did you have on a typical day when you were drinking in the past year? 1 or 2 drinks (0 point) How often did you have 6 or more drinks on one occasion in the past year? Never (0 point) Points 1 Interpretation Negative Section Notes: Nonsmoker, occasional drink--rare Alot of stress/anxiety with twin girls--born prematurely and have medical issues Problems Problem Type SNOMED Code ICD Code Onset Dates Problem Status W/U Status Risk Notes Problem 830919549 Irritable bowel syndrome with diarrhea (K58.0) Active confirmed Problem [id number] Right upper quadrant abdominal pain (R10.11) Active confirmed Problem [id number] Diarrhea, unspecified type (R19.7) Active confirmed Plan Of Treatment No Information Insurance Providers Payer Name Payer Address Payer Phone Subscriber Number Group Number Insured Name Patient Relationship to Insured Coverage Start Date Coverage End Date [facility] [address] [place] [address] [id number] TIERRA TANJAZACHARY Self - patient is the insured Medicare of [facility] [address] [place] [address] [id number] ERIC MAYORGA Self - patient is the insured MEDICAID OF [facility] [address] [place] [address] [id number] TIERRA ERIC Self - patient is the insured Medical (General) History Medical History History ICD Code Polycystic ovaries disease Fibromyalgia Scoliosis Asthma - mild intermittent Denies DC,DM,CVA,renal disease Urinary incontinence-mild Anxiety PTSD Migraines Surgical History Surgery Date(Month/Year) Hysterectomy Cholecystectomy for gallston es-Dr. Magallanes--normal intraoperative cholangiogram 2006 2004 Right breast mole removed-benign
== END 2025-06-14 09:07 | disposition home or self-care (01) ==
LOC: HO.HMCH 08:17
PROVIDERS: PCP Physician Assistant; Visit Provider Physician Assistant
DX: M79.89 Other specified soft tissue disorders (principal); Z12.31 Encounter for screening mammogram for malignant neoplasm of breast; R76.8 Other specified abnormal immunological findings in serum; R60.1 Generalized edema; R20.2 Paresthesia of skin

== ENCOUNTER → 2025-06-14 08:16 | Outpatient (BNVA) | payer OTHER, SELFPAY | PROVIDERS: PCP Physician Assistant; Visit Provider Physician Assistant | DX: F41.1 Generalized anxiety disorder (principal); M79.89 Other specified soft tissue disorders; R76.8 Other specified abnormal immunological findings in serum; R60.1 Generalized edema; R20.2 Paresthesia of skin; Z79.899 Other long term (current) drug therapy | CPT/HCPCS: 99212 ==

== ENCOUNTER 2025-06-20 09:43 | Outpatient (REF) | payer OTHER, SELFPAY ==
--- NOTE | ~2025-06-20 | US_ITS ---
EXAMINATION: US TRIPLEX UPPER EXTREMITY, LEFT CLINICAL INFORMATION: Prior thrombus in the left basilic vein, a superficial vein, Diagnosed to 12/27/2024 COMPARISON: March 15, 2025 TECHNIQUE: Color-flow triplex imaging with spectral analysis and compression Doppler was performed on the left upper extremity. FINDINGS: The left internal jugular, subclavian, and axillary veins are patent and free of thrombus. The imaged segment of the left brachiocephalic vein is patent. Spectral doppler waveforms are normal. The brachial, basilic, radial, and ulnar veins are patent and compressible. The cephalic vein, superficial vessel, is not visualized. US/US venous duplex UE LT IMPRESSION: No evidence of deep or superficial venous thrombosis involving the left upper extremity. Electronically signed by: Minesh Braswell MD 06/20/2025 10:37 AM EDT
--- OUTSIDE RECORDS SUMMARY | 2025-06-20 10:19 | XMS_ITS | Patient Health Record ---
Author Organization [facility] Address [address] [place] [address] Care Team Providers Care Grade Recorder Name Role Phone Anum (RETIRED) Lamonte ROBERTS Primary Care Provide r Unavailable Delmar Braxton Unavailable [phone] Allergies Allergen (clinical drug ingredient) Drug/Non Drug [...] Problem Status W/U Status Risk Notes Problem [id number] Irritable bowel syndrome with diarrhea (K58.0) Active confirmed Problem [id number] Right upper quadrant abdominal pain (R10.11) Active confirmed Problem 49373009 Diarrhea, unspecified type (R19.7) Active confirmed Plan Of Treatment No Information Insurance Providers Payer Name Payer Address Payer Phone Subscriber Number Group Number Insured Name Patient Relationship to Insured Coverage Start Date Coverage End Date [facility] [address] [place] [address] [id number] TIERRA TANJAZACHARY Self - patient is the insured Medicare of [facility] [address] [place] [address] [id number] ERIC MAYORGA Self - patient is the insured MEDICAID OF [facility] [address] [place] [address] [id number] TIERRA ERIC Self - patient is the insured Medical (General) History Medical History History ICD Code Polycystic ovaries disease Fibromyalgia Scoliosis Asthma - mild intermittent Denies ID,DM,CVA,renal disease Urinary incontinence-mild Anxiety PTSD Migraines Surgical History Surgery Date(Month/Year) Hysterectomy Cholecystectomy for gallston es-Dr. Magallanes--normal intraoperative cholangiogram 2006 2004 Right breast mole removed-benign
--- OUTSIDE RECORDS SUMMARY | 2025-06-20 10:19 | XMS_ITS | Clinical Summary ---
[facility] Address [address] [place] [address] Phone Care Team Providers Care Flour Worker Name Role Phone Kenny Taylor Primary [...] Description 03/24/2025 8:20 AM EDT Office Visit [facility] - [address] [facility] [address] [place] [address] Jaimee Sanchez MD Chest pain, [...] Care Team (Late st Contact Info) Description 06/22/2025 11:00 AM EDT Consult Vivian Young MD [place] [address] [address] Vivian Young MD [address] [address] 10/02/2025 10:20 AM EST Office Visit [facility] - [facility] [address] [facility] [address] [place] [address] Jaimee Sanchez MD [address] [place] [address] Health Maintenance Due Date Last Done Comments [...] GEMUSE QTc 440 ms GEMUSE P Wave [facility] 52 degrees GEMUSE R [facility] 29 degrees GEMUSE T [facility] 42 degrees GEMUSE ECG Interpretation Normal sinus rhythm Nonspecific T wave abnormality Abnormal ECG No previous ECGs available Confirmed by JAIMEE SANCHEZ ([id number]) on 03/24/2025 9:54:55 AM GEMUSE 03/24/2025 8:25 AM EDT 03/24/2025 9:54 AM EDT us Jaimee Sanchez MD ECG ORDERABLES Final Result GEMUSE from Last 3 Months Insurance [employer] MEDICARE Member Subscriber Plan / Payer (Ef fective 2017-Present) Name:ERIC MAYORGA Relation to Subscriber:Self Name:Eric Mayorga Payer ID:[id number] Group ID:[id number] Type:Not on file Address: [address] [place] [phone] [employer] MEDICARE Member Subscriber Plan / Payer (Ef fective 2017-Present) Name:ERIC MAYORGA Relation to Subscriber:Self Name:Eric Mayorga Payer ID:[id number] Group ID:[id number] Type:Not on file Address: [address] [place] [id number] Care Teams Flour Worker Relationship Specialty Start Date End Date Kenny Taylor PA PCP - General Physician Electronic Assembler Group Leader 02/20/25
[2025-06-20 11:01] LABS: Hematocrit 38.2 % (37.0-47.0); Hemoglobin 12.6 g/dl (12.0-16.0); Mean Corpuscular HGB Conc 33.0 g/dl (31.0-35.0); Mean Corpuscular Hemoglobin 28.7 pg (27.0-33.0); Mean Corpuscular Volume 87.0 fL (80.0-98.0); NRBC Abs Auto 0.000 X10*3/uL (0.0-0.012); NRBC Pct Auto 0.0 /100WBC (0.0-0.2); Platelet Count 320 X10*3/uL (160-400); Red Blood Count 4.39 X10*6/uL (4.20-5.50); White Blood Count 6.9 X10*3/uL (4.8-10.8)
[2025-06-20 11:06] LABS: Alanine Aminotransferase 26 U/L (0-31); Albumin Level 4.1 g/dL (3.5-5.0); Alkaline Phosphatase 73 U/L (39-117); Anion Gap 11 (12-20); Aspartate Amino Transferase 25 U/L (5-31); Blood Urea Nitrogen 10 mg/dL (9-16); Calcium 9.4 mg/dL (8.4-10.2); Carbon Dioxide 26 mmol/L (22-29); Chloride 107 mmol/L (96-108); Estimated Glomerular Filt Rate > 60; Potassium 4.3 mmol/L (3.3-5.1); Sodium 140 mmol/L (135-145); Total Protein 7.3 g/dL (6.5-8.0)
[2025-06-27 19:48] LABS: Cryoglobulin, Qual Negative (Negative)
== END 2025-06-20 09:44 | disposition home or self-care (01) ==
LOC: HO.US 09:43
PROVIDERS: Absent Provider Student in an Organized Health Care Education/Training Program; PCP Physician Assistant; Visit Provider Physician Assistant
DX: I82.602 Acute embolism and thrombosis of unspecified veins of left upper extremity (principal); M04.9 Autoinflammatory syndrome, unspecified; R60.1 Generalized edema
CPT/HCPCS: 36415; 80053; 82595; 85027; 93971

== ENCOUNTER → 2025-06-20 09:46 | Outpatient (BNV) | payer OTHER, SELFPAY | PROVIDERS: Absent Provider Student in an Organized Health Care Education/Training Program; PCP Physician Assistant; Visit Provider Radiology Diagnostic Radiology | DX: I82.612 Acute embolism and thrombosis of superficial veins of left upper extremity (principal) | CPT/HCPCS: 93971 ==

== ENCOUNTER 2025-11-08 13:30 | Outpatient (AMB) | payer OTHER, SELFPAY ==
--- NOTE | 2025-11-08 14:03 | A.OFFVIS_ITS ---
Intake Visit Reasons: follow up Allergies citalopram (From Celexa) Adverse Reaction (Intermediate, Verified 06/14/25 08:38) Nausea oxycodone (OXYCODONE) Adverse Reaction (Unknown, Verified 06/14/25 08:38) PALPITATIONS Medication List - Last Reconciled 11/08/25 by Tiana Holden MD albuterol sulfate 90 mcg/actuation 1 inh inhalation QID 30 days amitriptyline 25 mg PO BEDTIME 90 days blood pressure test kit-large As directed gabapentin 100 mg PO BID 30 days HPI Comments Details: Pains all over , whole body pain and pins and needles in feet and hands . Feels some brain fog. Gabapentin and amitriptyline have helped headaches but only mildly helpful for her body pains. Says she is falling a lot and clumsy. Also feels brain fog and tired. 49 ?yr woman was admitted to [facility] on 03/09/25 for sharp chest pain and head and mouth twisted and felt like choking with bad headaches. Still has the chest pain and the headache. and will be f/u with cardiology. Feels very fatigued. Heart monitor done several months ago and feels gasping.??Feels a pressure, heavy and sharp pains in the right occipital area. She started with migraines at 16 yr age , she sees dots in her vision and nausea and photophobia that are now occurring 3/ month that can last 2 days.? H/O pseudotumor cerebri with last OP 29cm and CP 12cm. Bad depression but on no meds. Sees a counsilor. Had papilledema in the past . She had an MRI of the brain [address] brain which was unremarkable except for questionable pituitary abnormality. She has no hormonal changes. She has a history of migraines since age 16. Rheumatological w/u has been negative. 03/10/25 MRI brain and CTA head and neck normal. [facility] Medical History (Updated 11/08/25 @ 14:18 by Tiana Holden MD) IBS (irritable bowel syndrome) Multiple subsolid lung nodules less than 6 mm in diameter Deep vein thrombosis, upper left extremity MDD (major depressive disorder), recurrent episode, moderate Joint pain Numbness and tingling of right thumb Numbness and tingling of left thumb Heart palpitations Anxiety HTN (hypertension) Irritable bowel Asthma Fibromyalgia Pituitary tumor Pseudotumor Surgical History History of cholecystectomy History of biopsy History of delivery History of hysterectomy Family History Mother Diabetes Heart defect Thyroid disease Heart attack, Onset Age: 29 Mental health disorder Father Diabetes Hypertension Social History Household Members: Family and Children Housing: House Do you presently have visiting nurse or other home services: No Alcohol intake: current Alcohol intake frequency: holidays/special occasions only Patient Tobacco Use Status: Former Tobacco user Tobacco use type: Cigarette e-Cigarette/Vaping Use: Never Used Second Hand Smoke Exposure: Yes service: No Current occupational status: disabled Cognitive needs: No Hearing needs: No Vision needs: Yes (Glasses) Physical Exam Neuro Other: Neurological Abnormal neurological findings:?disc margins are clear with no SVPs..? Mental Status:?alert and oriented X 3,?Normal attention, orientation, memory and affect.? Cranial Nerves:?Pupils are equal, round and reactive to light. Fundoscopy as above . External occular muscles are intact. Visual trevino are full, no ptosis. Face is symmetrical, no facial weakness or droop. Facial sensations are normal. Tongue protrudes in midline. Palate elevates symmetrically. Shoulder shrugging is normal..? Motor Examination:?Normal muscle tone, bulk and strength,?No atrophy or fasciculations,?No drift of the extended upper extremities,?Deep tendon reflexes are 2+?,?Plantars are flexor?.? Straight Leg Raising:?90 degrees.? Sensory Exam:?Normal light touch, temperature, pinprick, vibration and joint- position sensations?,?Rhomberg sign is absent.? Coordination:?no ataxia,?no titubation,?[id number]-[id number], edev-acce-qhdm test and rapid alternating movements were normal.? Gait Exam:?Within normal limits.? Cerebellar Signs:?Ljczqf-oe-acpo and pwqx-ii-duli is normal,?no dysdiadochokinesia?.? Extrapyramidal System:?No tremor, rigidity with normal facial expressions,?No bradykinesia, no bradyphrenia. Normal arm swing and posture. No propulsion or retropulsion.? Speech:?Normal,?no dysphasia or dysarthria..? Mini Mental Status Exam Level of Consciousness:?Alert.? Orientation:?Knows correct year, month, date, day and season,?Knows correct city, county and state. Knows correct location and floor.? Registration:?Able to register 3 objects.? Attention:?Serial 7's performed accurately.? Recall:?Able to recall 3 out of 3 objects.? Language:?Normal spontaneous speech, fluency, repetition,naming, comprehension, reading and writing.? Total Score:?30/30.? General Examination GENERAL APPEARANCE:??normal,?in no acute distress.? HEART:??S1, S2 normal,?no murmurs.? LUNGS:??clear anteriorly and posteriorly.? MUSCULOSKELETAL:??normal.? EXTREMITIES:??no edema.? PSYCH:??alert, oriented,?cognitive function intact,?cooperative with exam.? Assessment & Plan Assessment & Plan (1) Tension headache: Comment: 07/22/18 MRI brain with pituitary protocol shows 3mm left pituitary microadenoma Labs normal. 11/29/18 CT brain normal. 08/20/18 OP 29, CP12cm. MRI Brain with and without contrast 02/12/2024: Normal. 03/10/25 MRI brain and CTA head and neck normal Code(s): G44.209 - Tension-type headache, unspecified, not intractable Category: Medical (2) Pseudotumor cerebri: Code(s): G93.2 - Benign intracranial hypertension Category: Medical (3) Sensory neuropathy: Code(s): G62.9 - Polyneuropathy, unspecified Category: Medical Plan NCV/ EMG . continue current meds Orders: Orders NE nerve conduction velocity Today G62.9 - Polyneuropathy, unspecified NE electromyogram (EMG) Today G62.9 - Polyneuropathy, unspecified Coding Level of Care Code Est Pt Level 4 (54336) Diagnoses Tension headache G44.209 Pseudotumor cerebri G93.2 Sensory neuropathy G62.9
--- OUTSIDE RECORDS SUMMARY | 2025-11-08 17:40 | XMS_ITS | Clinical Summary ---
Author Organization [facility] [employer] [facility] Address [address] [place] [address] Phone Care Team Providers Care Nurse Companion Name Role Phone Kenny Taylor Primary Care Provider [phone] Allergies Active Allergy Reactions Criticality Noted Date [...] Date Chest pain 03/21/2025 Heart palpitations 03/21/2025 Medical History Medical History Date Comments Joint [...] on file Sexual Orientation Not on file Last Filed Vital Signs Vital Sign Reading [...] Care Team (Late st Contact Info) Description 11/13/2025 9:10 AM EST Office Visit [facility] - [facility] [address] [facility] [address] [place] [phone] Riki Kirkpatrick NP [address] [place] [address] [place] [address] Health Maintenance Due Date Last Done Comments Breast Cancer Screening 1976 Colorectal Cancer Screening: Colonoscopy 1976 DTaP,Tdap,and Td Vaccines (1 - Tdap) 1995 Hepatitis B Vaccines (1 of 3 - 19+ 3-dose series) 1995 Cervical Cancer Screening: P ap Smear 1997 Depression Screening 11/23/2024 HIV Screening 02/20/2025 Hepatitis C Screening 02/20/2025 Medicare Annual Wellness Visit 02/20/2025 Social Influencers of Health Screening 02/20/2025 COVID-19 Vaccine (3 - 2024-2 6 season) 2025 05/10/2021, 04/19/2021 Influenza Vaccine (#1) 2025 RSV Immunization Adult Patients (1 - 1-dose 75+ series) 2051 HIB Vaccines Aged Out No longer eligi [...] patient's age to complete this topic Insurance [employer] MEDICARE Member Subscriber Plan / Payer (Ef fective 2017-Present) Name:MAYORGAERIC Relation to Subscriber:Self Name:Eric Mayorga Payer ID:[id number] Group ID:[id number] Type:Not on file Address: [address] [place] [address] [employer] MED[employer] Member Subscriber Plan / Payer (Ef fective 2017-Present) Name:TIERRA ERIC Relation to Subscriber:Self Name:Eric Mayorga Payer ID:[id number] Group ID:[id number] Type:Not on file Address: [address] [place] [address] Care Teams Nurse Companion Relationship Specialty Start Date End Date Kenny Taylor PA [address] [place] [address] PCP - General Physician Rn Complex Care 09/28/25
--- OUTSIDE RECORDS SUMMARY | 2025-11-08 17:40 | XMS_ITS | Patient Health Record ---
Author Organization [facility] Address [address] [place] [address] Care Team Providers Care Consumer Loan Processor Name Role Phone Anum (RETIRED) Lamonte ROBERTS Primary Care Provide r Delmar Falk Unavailable [phone] Allergies Allergen (clinical drug ingredient) Drug/Non Drug Allergy documented on EMR Reaction Allergy Type Onset Date Status acetaminophen / oxycodone Percocet Unknown Drug Allergy Active Reason For Referral No Information Medications Medication SIG (Take, Route, Frequency, Duration) Notes Start Date End Date Status Dicyclomine HCl 10 MG Capsule 1-2 capsules Orally Four times a day prn abdominal pain/cramps; Duration: 30 day(s) 09/17/2017 Active Ibuprofen 800 MG Tablet 1 tablet with fo od or milk Orally Not daily Active Cholestyramine 4 GM/DOSE Powder 1/2 to 2 scoops Orally Once or Twice a day for diarrhea; Duration: 30 day(s) 09/17/2017 Active Social History Tobacco Use: Social History Observation Description Date Details (start date - stop date) Former Smoker NA - NA Social History Drugs/Alcohol: Social Info Question Answer Notes Alcohol Screen Did you have a drink containing alcohol in the past year? Yes How often did you have a drink containing alcohol in the past year? Monthly or less (1 point) How many drinks did you have on a typical day when you were drinking in the past year? 1 or 2 drinks (0 point) How often did you have 6 or more drinks on one occasion in the past year? Never (0 point) Points 1 Interpretation Negative Tobacco Use: Social Info Question Answer Notes Tobacco Use/Smoking Patient is a former smoker How long has it been since you last smoked? 5-10 years Additional Details Category Social Info Options Details Miscellaneous: Marital status: Single Occupation: Unemployed Section Notes: Nonsmoker, occasional drink--rare Alot of stress/anxiety with twin girls--born prematurely and have medical issues Problems Problem Type SNOMED Code ICD Code Onset Dates Problem Status W/U Status Risk Notes Problem Irritable bowel syndrome with diarrhea (538288672) Irritable bowel syndrome with diarrhea (K58.0) Active confirmed Problem Right upper quadrant pain (711961663) Right upper quadrant abdominal pain (R10.11) Active confirmed Problem Diarrhea (58931885) Diarrhea, unspecified type (R19.7) Active confirmed Plan Of Treatment No Information Insurance Providers Payer Name Payer Address Payer Phone Subscriber Number Group Number Insured Name Patient Relationship to Insured Coverage Start Date Coverage End Date [facility] [address] [place] [address] [id number] ERIC MAYORGA Self - patient is the insured Medicare of [facility] [address] [place] [address] [id number] ERIC MAYORGA Self - patient is the insured MEDICAID OF [facility] [address] [place] [address] [id number] ERIC MAYORGA Self - patient is the insured Medical (General) History Medical History History ICD Code Polycystic ovaries disease Fibromyalgia Scoliosis Asthma - mild intermittent Denies PA,DM,CVA,renal disease Urinary incontinence-mild Anxiety PTSD Migraines Surgical History Surgery Date(Month/Year) Hysterectomy Cholecystectomy for gallston es-Dr. Magallanes--normal intraoperative cholangiogram 2006 2004 Right breast mole removed-benign
== END 2025-11-08 14:24 | disposition home or self-care (01) ==
LOC: HO.HSM 13:31
PROVIDERS: PCP Physician Assistant; Visit Provider Psychiatry & Neurology Neurology
DX: G44.209 Tension-type headache, unspecified, not intractable (principal); G93.2 Benign intracranial hypertension; G62.9 Polyneuropathy, unspecified
CPT/HCPCS: 99214

== ENCOUNTER → 2025-11-08 13:30 | Outpatient (BNVA) | payer OTHER, SELFPAY | PROVIDERS: PCP Physician Assistant; Visit Provider Psychiatry & Neurology Neurology | DX: G93.2 Benign intracranial hypertension (principal); G44.209 Tension-type headache, unspecified, not intractable; G62.9 Polyneuropathy, unspecified; Z79.899 Other long term (current) drug therapy | CPT/HCPCS: 99212 ==

== ENCOUNTER 2025-11-09 12:45 | Outpatient (AMB) | payer OTHER, SELFPAY ==
[2025-11-09 12:55] VITALS: BP 132/82; PULSE 91; O2SAT 98; BMI 35.5
--- NOTE | 2025-11-09 12:55 | A.OFFVIS_ITS ---
Vital Signs 11/09/25 12:55 Height 5 ft Weight 182 lb BMI 35.5 BP 132/82 Blood Pressure Location Lt brachial Position Sitting Pulse 91 Pulse Source Pulse Oximeter Pulse Oximetry (%) 98 Oxygen Delivery Method Room Air Intake Visit Reasons: abnormal CT Allergies citalopram (From Celexa) Adverse Reaction (Intermediate, Verified 11/09/25 13:01) Nausea oxycodone (OXYCODONE) Adverse Reaction (Unknown, Verified 11/09/25 13:01) PALPITATIONS HPI HPI abnormal CT: Details: 50-year-old lady, nonsmoker, with remote history of left upper extremity DVT no longer on anticoagulation referred for evaluation of incidentally note for nodule on CT chest. Patient denies family history lung disease. She does complain of significant orthopnea and lower extremity edema associated with dyspnea on exertion. Denies exposure to industrial dusts. Patient does complain or unrestful sleep and daytime somnolence. [facility] Medical History (Updated 11/09/25 @ 14:28 by Jean Carlos Santos MD) IBS (irritable bowel syndrome) Multiple subsolid lung nodules less than 6 mm in diameter Deep vein thrombosis, upper left extremity MDD (major depressive disorder), recurrent episode, moderate Joint pain Numbness and tingling of right thumb Numbness and tingling of left thumb Heart palpitations Anxiety HTN (hypertension) Irritable bowel Asthma Fibromyalgia Pituitary tumor Pseudotumor Surgical History History of cholecystectomy History of biopsy History of delivery History of hysterectomy Family History Mother Diabetes Heart defect Thyroid disease Heart attack, Onset Age: 29 Mental health disorder Father Diabetes Hypertension Social History (Updated 11/09/25 @ 13:02 by ANGEL Davey) Household Members: Family and Children Housing: House Do you presently have visiting nurse or other home services: No Alcohol intake: current Alcohol intake frequency: holidays/special occasions only Patient Tobacco Use Status: Never used Tobacco e-Cigarette/Vaping Use: Never Used Second Hand Smoke Exposure: Yes service: No Current occupational status: disabled Cognitive needs: No Hearing needs: No Vision needs: Yes (Glasses) Review of Systems Const Reports daytime sleepiness, Denies excessive sweating, Denies fatigue, Denies fever(s), Reports lethargy, Reports malaise, Denies night sweats, Reports snoring and Denies weight loss Eyes Denies blurry vision and Denies itchy eyes ENT Denies nasal congestion, Denies post nasal drip, Denies sinus pain, Denies sinus pressure and Denies other ( Thrush) Card Denies chest pain, Denies pedal edema, Denies dyspnea, Reports dyspnea on exe rtion, Reports orthopnea and Denies paroxysmal nocturnal dyspnea Resp Denies cough, Denies hemoptysis, Denies excessive phlegm production, Denies dyspnea, Reports dyspnea on exertion, Reports snoring and Denies wheezing GI Denies abdominal pain and Denies heartburn Musc Denies myalgias, Denies arthralgias and Denies joint swelling Skin/Breast Denies rash Neuro Denies memory loss and Denies seizure-like activity Psych Denies abnormal sleep pattern, Denies anxiety and Denies memory loss Endo Denies excessive sweating, Denies fatigue and Denies heat intolerance Herman/Lymph Denies easy bruising Aller/Immun Denies itchy eyes, Denies seasonal rhinorrhea and Denies wheezing Physical Exam Vital Signs: Last Vital Signs Pulse 91 11/09/25 12:55 BP 132/82 11/09/25 12:55 Pulse Ox 98 11/09/25 12:55 Oxygen Delivery Method Room Air 11/09/25 12:55 BMI result Body Mass Index 35.5 Const General: no acute distress and alert Nutritional Appearance: obese Orientation/consciousness: Other orientation findings ( oriented) HEENT Head: Yes atraumatic Eyes General: appearance normal, both eyes and all related structures Sclerae: sclerae normal EOM: EOMs intact bilaterally Neck Neck: Yes supple Lymphatic: no lymphadenopathy noted Resp Effort & Inspection: normal respiratory effort and no use of accessory muscles Auscultation: clear to auscultation bilaterally Cardio Rate: regular rate Rhythm: regular rhythm Heart sounds: no gallops, no murmurs and no rubs Skin General skin exam: other ( warm) Extrem General: No clubbing, No cyanosis and Yes edema (1+ bilateral) Assessment & Plan Assessment & Plan (1) Pulmonary nodule: Code(s): R91.1 - Solitary pulmonary nodule Category: Medical Plan: Incidentally noted 4 mm nodule, will repeat CT chest in 6 months. (2) PEPITO (obstructive sleep apnea): Code(s): G47.33 - Obstructive sleep apnea (adult) (pediatric) Category: Medical Plan: Unrestful sleep, daytime sleepiness, snoring, hypotension. Underlying obesity. [place] Sleepiness scale score of 15. Will obtain home sleep study. (3) Dyspnea on exertion: Code(s): R06.09 - Other forms of dyspnea Category: Medical Plan: With significant orthopnea and lower extremity edema component. Will start on empiric diuretic and obtain 2D echo cardiogram for further evaluation. Orders: Orders CA echo transthoracic complete Today R06.09 - Other forms of dyspnea RT home sleep study Today G47.33 - Obstructive sleep apnea (adult) (pediatric) CT chest wo IV con 05/10/26 R91.1 - Solitary pulmonary nodule Medications: New furosemide (Lasix) 40 mg PO DAILY 30 tabs 6RF Coding Level of Care Code New Pt Level 4 (61545) Diagnoses Pulmonary nodule R91.1 PEPITO (obstructive sleep apnea) G47.33 Dyspnea on exertion R06.09
--- OUTSIDE RECORDS SUMMARY | 2025-11-09 16:36 | XMS_ITS | Patient Health Record ---
Author Organization [facility] Address [address] [place] [address] Care Team Providers Care Referral Specialist Name Role Phone Anum (RETIRED) Lamonte ROBERTS Primary Care Provide r Delmar Falk Unavailable [phone] Allergies Allergen (clinical drug ingredient) Drug/Non Drug [...] Notes Problem Irritable bowel syndrome with diarrhea (523265275) Irritable bowel syndrome with diarrhea (K58.0) Active confirmed Problem Right upper quadrant pain (996332633) Right upper quadrant abdominal pain (R10.11) Active confirmed Problem Diarrhea (71357154) Diarrhea, unspecified type (R19.7) Active confirmed Plan Of Treatment No Information Insurance Providers Payer Name Payer Address Payer Phone Subscriber Number Group Number Insured Name Patient Relationship to Insured Coverage Start Date Coverage End Date [facility] [address] [place] [address] [id number] ERIC MAYORGA Self - patient is the insured Medicare of [facility] [address] [place] [address] [id number] ERIC MAYORGA Self - patient is the insured MEDICAID OF [facility] [address] [place] [address] [id number] ERIC MAYORGA Self - patient is the insured Medical (General) History Medical History History ICD Code Polycystic ovaries disease Fibromyalgia Scoliosis Asthma - mild intermittent Denies GA,DM,CVA,renal disease Urinary incontinence-mild Anxiety PTSD Migraines Surgical History Surgery Date(Month/Year) Hysterectomy Cholecystectomy for gallston es-Dr. Magallanes--normal intraoperative cholangiogram 2006 2004 Right breast mole removed-benign
--- OUTSIDE RECORDS SUMMARY | 2025-11-09 16:36 | XMS_ITS | Clinical Summary ---
Author Organization [facility] Address [address] [place] [address] Phone Care Team Providers Care Pharmaceutical Sales Name Role Phone Kenny Taylor Primary Care [...] Description 11/13/2025 9:10 AM EST Office Visit [facility] - [facility] [address] [facility] [address] [place] [address] Riki Kirkpatrick NP [address] [place] [address] [place] [address] Health Maintenance Due Date Last Done Comments [...] file Address: [address] [place] [address] [employer] MED[employer] Member Subscriber Plan / Payer (Ef fective 2017-Present) Name:TIERRA ERIC Relation to Subscriber:Self Name:Eric Mayorga Payer ID:[id number] Group ID:[id number] Type:Not on file Address: [address] [place] [address] Care Teams Pharmaceutical Sales Relationship Specialty Start Date End Date Kenny Taylor PA [address] [place] [address] PCP - General Physician Sliver Lapper 09/28/25
== END 2025-11-09 13:21 | disposition home or self-care (01) ==
LOC: HO.HPS 12:45
PROVIDERS: PCP Physician Assistant; Visit Provider Internal Medicine Pulmonary Disease
DX: R91.1 Solitary pulmonary nodule (principal); G47.33 Obstructive sleep apnea (adult) (pediatric); R06.09 Other forms of dyspnea
CPT/HCPCS: 99204

== ENCOUNTER → 2025-11-09 12:45 | Outpatient (BNVA) | payer OTHER, SELFPAY | PROVIDERS: PCP Physician Assistant; Visit Provider Internal Medicine Pulmonary Disease | DX: G47.33 Obstructive sleep apnea (adult) (pediatric) (principal); R91.1 Solitary pulmonary nodule; R06.09 Other forms of dyspnea | CPT/HCPCS: 99202 ==